=== PATIENT | female | born 1985 | race Caucasian/White ===

== ENCOUNTER 2017-07-03 13:43 | Inpatient (IN) | payer MEDICAID, MEDICARE ==
[2017-07-03] MEDS ORDERED: ACETAMINOPHEN TAB 650MG DOSE (2X325MG) PO ×2 (18:00)
[2017-07-03] MEDS ORDERED: MAALOX 30 ML SUSP *UDC PO ×2 (18:00)
[2017-07-03] MEDS ORDERED: MOM 30ML SUSPENSION UDC PO ×2 (18:00)
[2017-07-03] MEDS: TOPIRAMATE (TopAMAX) 25 MG TAB PO ×2 (20:28)
[2017-07-03] MEDS: zolPIDEM TARTRATE 10MG TAB PO ×2 (20:29)
[2017-07-03] MEDS: OLANZapine 10 MG TAB PO ×2 (20:29)
[2017-07-04] MEDS: MULTIVITAMINS/MINERALS THERAP 1 TAB PO ×2 (08:02)
[2017-07-04] MEDS: buPROPion **XL** TABLET 150MG (WELLBUTRIN XL) PO ×2 (08:02)
[2017-07-04] MEDS: OLANZapine 10 MG TAB PO ×4 (08:02→20:12)
[2017-07-04 13:18] LABS: HEMATOCRIT 40.7 % (36.0-47.0); HEMOGLOBIN 13.6 g/dl (12.0-16.0); MEAN CORPUSCULAR HEMOGLOBIN 31.2 pg (27.0-33.0); MEAN CORPUSCULAR HGB CONC 33.4 g/dl (32.0-36.5); MEAN CORPUSCULAR VOLUME 93.3 fl (80.0-96.0); PLATELET COUNT, AUTOMATED 447 10^3/uL (150-450); RED BLOOD COUNT 4.36 10^6/uL (4.00-5.40); RED CELL DISTRIBUTION WIDTH 13.6 % (11.5-14.5); WHITE BLOOD COUNT 10.6 10^3/uL (4.0-10.0)
[2017-07-04 14:14] LABS: ALBUMIN 3.9 GM/DL (3.2-5.2); ALBUMIN/GLOBULIN RATIO 1.15 (1.00-1.93); ALKALINE PHOSPHATASE 82 U/L (45-117); ALT/SGPT 21 U/L (12-78); ANION GAP 7 MEQ/L (8-16); AST/SGOT 8 U/L (7-37); BILIRUBIN,TOTAL 0.3 MG/DL (0.2-1.0); BLOOD UREA NITROGEN 10 MG/DL (7-18); CALCIUM LEVEL 8.8 MG/DL (8.5-10.1); CARBON DIOXIDE LEVEL 26 MEQ/L (21-32); CHLORIDE LEVEL 107 MEQ/L (98-107); CREATININE FOR GFR 0.77 MG/DL (0.55-1.30); GLOMERULAR FILTRATION RATE > 60.0 (>60); GLUCOSE, FASTING 94 MG/DL (70-100); SODIUM LEVEL 140 MEQ/L (136-145); TOTAL PROTEIN 7.3 GM/DL (6.4-8.2)
[2017-07-04] MEDS: zolPIDEM TARTRATE 10MG TAB PO ×2 (20:11)
[2017-07-04] MEDS: TOPIRAMATE (TopAMAX) 25 MG TAB PO ×2 (20:11)
[2017-07-05] MEDS: OLANZapine 10 MG TAB PO ×2 (08:17)
[2017-07-05] MEDS: buPROPion **XL** TABLET 150MG (WELLBUTRIN XL) PO ×2 (08:17)
[2017-07-05] MEDS: MULTIVITAMINS/MINERALS THERAP 1 TAB PO ×2 (08:17)
[2017-07-05] MEDS: hydrOXYzine 50 MG TAB PO ×2 (13:30)
== END 2017-07-05 14:49 | disposition home or self-care (01) | DRG 750 ==
LOC: M ED 13:43 → M ED INP 16:02 → M PSY 17:35
DX: F20.0 Paranoid schizophrenia (principal); F41.9 Anxiety disorder, unspecified; G47.00 Insomnia, unspecified; F17.200 Nicotine dependence, unspecified, uncomplicated; Z79.899 Other long term (current) drug therapy

== ENCOUNTER → 2018-07-22 | Outpatient (REF) | payer MEDICARE, MEDICAID, OTHER ==
[~2018-07-22] MED LIST: ABIL15TA; AMBI10TA PO; AMBI5TAB PO; BUPR10TASR PO; BUPR150T3 PO; CELE40TA; DEPLIN; FLUP5TA PO; HYDR50TA70 PO; HYDRO50TAB PO; KLON0.5T; KLON1TAB; OLAN10TA2 PO; OLAN20TA14 PO; Prolixin; TOPA1TAB PO; TOPI50TA9 PO; TRAZ100T; VITMTA PO; ZOLO50TA; ZOLP10TA2 PO; ZYPR1TAB3
[2018-07-22 16:43] LABS: APPEARANCE, URINE CLEAR (CLEAR); BACTERIA, URINE AUTO NEGATIVE (NEGATIVE); BILIRUBIN, URINE AUTO NEGATIVE (NEGATIVE); BLOOD, URINE BLOOD NEGATIVE (NEGATIVE); COLOR, URINE YELLOW (YELLOW); GLUCOSE, URINE (UA) AUTO NEGATIVE (NEGATIVE); KETONE, URINE AUTO NEGATIVE (NEGATIVE); LEUKOCYTE ESTERASE, URINE AUTO 2+ (NEGATIVE); MUCUS, URINE SMALL (NEGATIVE); NITRITE, URINE AUTO NEGATIVE (NEGATIVE); PROTEIN, URINE AUTO NEGATIVE (NEGATIVE); RBC, URINE AUTO 2 /HPF (0-3); SPECIFIC GRAVITY URINE AUTO 1.012 (1.002-1.035); SQUAMOUS EPITHELIAL CELL UR AU 1 /HPF (0-6); UROBILINOGEN, URINE AUTO 0.2 mg/dL (0.0-2.0); WBC, URINE AUTO 5 /HPF (0-3)
[2018-07-22 16:45] LABS: BASO # 0.1 10^3/uL (0.0-0.2); BASO % 0.4 % (0.0-1.0); EOS # 0.2 10^3/uL (0.0-0.50); EOS % 1.3 % (0.0-3.0); HEMATOCRIT 43.9 % (36.0-47.0); HEMOGLOBIN 14.5 g/dl (12.0-15.5); LYMPH # 3.5 10^3/uL (1.5-4.5); LYMPH % 30.1 % (24.0-44.0); MEAN CORPUSCULAR HEMOGLOBIN 28.6 pg (27.0-33.0); MEAN CORPUSCULAR VOLUME 86.6 fl (80.0-96.0); MONO # 0.7 10^3/uL (0.0-0.8); MONO % 6.1 % (0.0-5.0); NEUTROPHILS # 7.1 10^3/uL (1.8-7.7); NEUTROPHILS % 61.7 % (36.0-66.0); PLATELET COUNT, AUTOMATED 465 10^3/uL (150-450); RED BLOOD COUNT 5.07 10^6/uL (4.00-5.40); WHITE BLOOD COUNT 11.6 10^3/uL (4.0-10.0)
[2018-07-22 17:06] LABS: HEMOGLOBIN A1c 8.3 %
[2018-07-22 17:08] LABS: ALT/SGPT 27 U/L (12-78); BILIRUBIN,TOTAL 0.4 MG/DL (0.2-1.0); BLOOD UREA NITROGEN 8 MG/DL (7-18); CALCIUM LEVEL 8.6 MG/DL (8.5-10.1); CARBON DIOXIDE LEVEL 21 MEQ/L (21-32); CHLORIDE LEVEL 109 MEQ/L (98-107); CHOLESTEROL LEVEL 190 MG/DL (<200); CHOLESTEROL RISK RATIO 6.333 (<5); CREATININE FOR GFR 0.74 MG/DL (0.55-1.30); FREE T4 1.09 NG/DL (0.76-1.46); GLOMERULAR FILTRATION RATE > 60.0 (>60); GLUCOSE, FASTING 101 MG/DL (70-100); HDL CHOLESTEROL 30 MG/DL (>40); LDL CHOLESTEROL 120 MG/DL (<100); NON-HDL-C 160 MG/DL; POTASSIUM SERUM 4.3 MEQ/L (3.5-5.1); SODIUM LEVEL 139 MEQ/L (136-145); TOTAL PROTEIN 7.8 GM/DL (6.4-8.2); TRIGLYCERIDES LEVEL 202 MG/DL (<150)
[2018-07-22 17:09] LABS: CREATININE, URINE 65.1 MG/DL; MALB URINE SIEMENS 5.8 MG/L; MAU/CREAT RATIO 8.9 MCG/MG (0.0-30.0)
[2018-07-26 00:09] LABS: Lyme Disease IgG Ab 18 kDa Ban Absent (.); Lyme Disease IgG Ab 23 kDa Ban Absent (.); Lyme Disease IgG Ab 28 kDa Ban Absent (.); Lyme Disease IgG Ab 30 kDa Ban Absent (.); Lyme Disease IgG Ab 39 kDa Ban Absent (.); Lyme Disease IgG Ab 41 kDa Ban Present (.); Lyme Disease IgG Ab 45 kDa Ban Absent (.); Lyme Disease IgG Ab 58 kDa Ban Absent (.); Lyme Disease IgG Ab 66 kDa Ban Absent (.); Lyme Disease IgG Ab 93 kDa Ban Absent (.); Lyme Disease IgG West Blot Int Negative (.); Lyme Disease IgG/IgM Antibodie 1.04 ISR (0.00-0.90); Lyme Disease IgM Ab 23 kDa Ban Absent (.); Lyme Disease IgM Ab 39 kDa Ban Absent (.); Lyme Disease IgM Ab 41 kDa Ban Present (.); Lyme Disease IgM Ab Quantitati 1.88 index (0.00-0.79); Lyme Disease IgM West Blot Int Negative (.)
== END ==
LOC: M LAB REF 16:14
PROVIDERS: ATTEND Family Medicine
DX: M19.90 Unspecified osteoarthritis, unspecified site (principal); E11.9 Type 2 diabetes mellitus without complications; Z00.01 Encounter for general adult medical examination with abnormal findings

== ENCOUNTER → 2019-01-13 | Outpatient (REF) | payer MEDICARE, OTHER ==
[~2019-01-13] MED LIST changes: +HYDR1TAB33 PO; -HYDRO50TAB PO
[2019-01-13 18:06] LABS: ALBUMIN 3.6 GM/DL (3.2-5.2); ALT/SGPT 41 U/L (12-78); BILIRUBIN,TOTAL 0.4 MG/DL (0.2-1.0); BLOOD UREA NITROGEN 6 MG/DL (7-18); CALCIUM LEVEL 9.3 MG/DL (8.5-10.1); CARBON DIOXIDE LEVEL 25 MEQ/L (21-32); CHLORIDE LEVEL 107 MEQ/L (98-107); CHOLESTEROL LEVEL 146 MG/DL (<200); CHOLESTEROL RISK RATIO 6.636 (<5); CREATININE FOR GFR 0.92 MG/DL (0.55-1.30); GLOMERULAR FILTRATION RATE > 60.0 (>60); GLUCOSE, FASTING 125 MG/DL (70-100); HDL CHOLESTEROL 22 MG/DL (>40); LDL CHOLESTEROL 57 MG/DL (<100); NON-HDL-C 124 MG/DL; SODIUM LEVEL 141 MEQ/L (136-145); TOTAL PROTEIN 6.9 GM/DL (6.4-8.2); TRIGLYCERIDES LEVEL 333 MG/DL (<150)
[2019-01-13 19:23] LABS: HEMOGLOBIN A1c 5.9 %
== END ==
LOC: M LAB REF 17:01
PROVIDERS: ATTEND Family Medicine
DX: E11.9 Type 2 diabetes mellitus without complications (principal)

== ENCOUNTER → 2019-06-17 | Outpatient (REF) | payer MEDICARE, OTHER ==
[2019-06-17 14:07] LABS: ALBUMIN 3.9 GM/DL (3.2-5.2); ALT/SGPT 24 U/L (12-78); BILIRUBIN,TOTAL 0.2 MG/DL (0.2-1.0); BLOOD UREA NITROGEN 6 MG/DL (7-18); CALCIUM LEVEL 8.8 MG/DL (8.5-10.1); CARBON DIOXIDE LEVEL 28 MEQ/L (21-32); CHLORIDE LEVEL 107 MEQ/L (98-107); CHOLESTEROL LEVEL 155 MG/DL (<200); CHOLESTEROL RISK RATIO 5.166 (<5); CREATININE FOR GFR 0.69 MG/DL (0.55-1.30); GLOMERULAR FILTRATION RATE > 60.0 (>60); GLUCOSE, FASTING 95 MG/DL (70-100); HDL CHOLESTEROL 30 MG/DL (>40); LDL CHOLESTEROL 104 MG/DL (<100); NON-HDL-C 125 MG/DL; POTASSIUM SERUM 4.2 MEQ/L (3.5-5.1); SODIUM LEVEL 139 MEQ/L (136-145); TOTAL PROTEIN 6.8 GM/DL (6.4-8.2); TRIGLYCERIDES LEVEL 106 MG/DL (<150)
[2019-06-17 15:02] LABS: HEMOGLOBIN A1c 5.1 %
== END ==
LOC: M LAB REF 13:09
PROVIDERS: ATTEND Family Medicine
DX: E11.9 Type 2 diabetes mellitus without complications (principal)

== ENCOUNTER 2019-09-21 23:34 | Emergency (ER) | payer MEDICARE, OTHER ==
[~2019-09-21] VITALS: Ht 170.2 cm; Wt 77.3 kg
[2019-09-22] MEDS ORDERED: ceFAZolin SOD 2 GM in IV 1 EA IV ONE ×2
[2019-09-22] MEDS ORDERED: TETANUS/DIPHTHERIA TOX ADSORB ADULT 0.5ML SYR/VIAL (90714) IM ONE (00:15)
--- NOTE | 2019-09-22 02:02 | REPVR ---
PROCEDURE INFORMATION: Exam: US Duplex Left Lower Extremity Veins, Limited Exam date and time: 09/22/2019 1:54 AM Age: 34 years old Clinical indication: Pain; Edema, localized; Lower extremity, left; Leg, lower; Additional info: Swelling TECHNIQUE: Imaging protocol: Real-time Duplex ultrasound of the Left Lower Extremity with 2-D escobar scale, color Doppler flow and spectral waveform analysis with image documentation. Limited exam focused on the left lower extremity veins. COMPARISON: No relevant prior studies available. FINDINGS: Left deep veins: Unremarkable. The common femoral, femoral and popliteal veins are patent without thrombus. Normal compressibility, augmentation response and Doppler waveforms. Left superficial veins: Unremarkable. Saphenofemoral junction is patent without thrombus. Soft tissues: Diffuse subcutaneous edema. Lymph nodes: Multiple mildly prominent left inguinal lymph nodes, likely reactive. IMPRESSION: No sonographic evidence of deep venous thrombosis. Electronically signed by: Jose Mcgarry On 09/22/2019 02:02:03 AM
--- NOTE | 2019-09-22 02:20 | REP ---
Clinical: Trauma. Technique: AP and lateral views of the left tibia / fibula. Findings: No acute fracture or dislocation. Skeletal structures, joint spaces, and surrounding soft tissues appear normal. No subcutaneous emphysema or foreign body. Impression: No acute fracture or dislocation. Electronically Signed by Mihai Andersen MD 09/22/2019 02:11 A
--- NOTE | 2019-09-22 02:22 | REP ---
Clinical: Left ankle trauma . Technique: AP, lateral, bilateral oblique views left ankle . Findings: Moderate diffuse soft tissue swelling noted. Very subtle irregularity at the tip of the medial malleolus is likely chronic and less likely represents a small fracture. Nonetheless, clinical and physical correlation is recommended to exclude the possibility of an acute injury. No definite acute fracture is otherwise noted and there is no evidence for dislocation. Ankle mortise appears stable. No subcutaneous emphysema or radiodense foreign body. Lateral view demonstrates small calcaneal heal spur. Impression: Diffuse swelling. Very subtle nonspecific irregularity at the tip of the medial malleolus less likely representing acute injury, but correlation is required. Electronically Signed by Mihai Andersen MD 09/22/2019 02:13 A
[2019-09-22] MEDS ORDERED: KEFL500C17 PO (02:39)
[2019-09-22 03:11] VITALS: BP 129/70
== END 2019-09-22 03:19 | disposition home or self-care (01) ==
LOC: M ED 23:34 → EDBD 23:34 → M ED 09-22 03:19
DX: L03.116 Cellulitis of left lower limb (principal); S82.55XA Nondisplaced fracture of medial malleolus of left tibia, initial encounter for closed fracture; W01.0XXA Fall on same level from slipping, tripping and stumbling without subsequent striking against object, initial encounter; Y92.009 Unspecified place in unspecified non-institutional (private) residence as the place of occurrence of the external cause; Y93.9 Activity, unspecified; Y99.9 Unspecified external cause status; F20.9 Schizophrenia, unspecified
CPT/HCPCS: 73590; 73610; 87040; 90471; 90714; 93971; 96365; 99284; J0690

== ENCOUNTER → 2020-04-23 | Outpatient (REF) | payer MEDICARE ==
[~2020-04-23] MED LIST changes: +KEFL500C17 PO
[2020-04-23 17:41] LABS: HEMOGLOBIN A1c 5.2 %
[2020-04-23 18:00] LABS: ALT/SGPT 15 U/L (12-78); BILIRUBIN,TOTAL 0.4 MG/DL (0.2-1.0); BLOOD UREA NITROGEN 11 MG/DL (7-18); CARBON DIOXIDE LEVEL 26 MEQ/L (21-32); CHLORIDE LEVEL 109 MEQ/L (98-107); CHOLESTEROL LEVEL 162 MG/DL (<200); CHOLESTEROL RISK RATIO 4.628 (<5); CREATININE FOR GFR 0.68 MG/DL (0.55-1.30); GLOMERULAR FILTRATION RATE > 60.0 (>60); GLUCOSE, FASTING 96 MG/DL (70-100); HDL CHOLESTEROL 35 MG/DL (>40); LDL CHOLESTEROL 102 MG/DL (<100); NON-HDL-C 127 MG/DL; POTASSIUM SERUM 4.7 MEQ/L (3.5-5.1); SODIUM LEVEL 141 MEQ/L (136-145); TRIGLYCERIDES LEVEL 127 MG/DL (<150)
== END ==
LOC: M LAB REF 16:33
PROVIDERS: ATTEND Physician Assistant
DX: E11.9 Type 2 diabetes mellitus without complications (principal)

== ENCOUNTER 2020-10-20 18:30 | Inpatient (IN) | payer MEDICARE ==
[~2020-10-20] VITALS: Ht 157.5 cm; Wt 69.0 kg
[~2020-10-20 18:30] MED LIST changes: +BUPR150T12 PO; -BUPR150T3 PO; -FLUP5TA PO; +FLUP5TAB13 PO
[2020-10-20 23:24] LABS: HEMATOCRIT 39.4 % (36.0-47.0); HEMOGLOBIN 13.1 g/dl (12.0-15.5); MEAN CORPUSCULAR HEMOGLOBIN 32.4 pg (27.0-33.0); MEAN CORPUSCULAR HGB CONC 33.2 g/dl (32.0-36.5); MEAN CORPUSCULAR VOLUME 97.5 fl (80.0-96.0); PLATELET COUNT, AUTOMATED 408 10^3/uL (150-450); RED BLOOD COUNT 4.04 10^6/uL (4.00-5.40); WHITE BLOOD COUNT 13.4 10^3/uL (4.0-10.0)
[2020-10-20 23:49] LABS: AMPHETAMINES LEVEL URINE NEGATIVE (NEGATIVE); BARBITURATES URINE NEGATIVE (NEGATIVE); BENZODIAZEPINES URINE NEGATIVE (NEGATIVE); CANNABINOIDS URINE NEGATIVE (NEGATIVE); COCAINE METABOLITE URINE NEGATIVE (NEGATIVE); HCG, SERUM QUALITATIVE NEGATIVE (NEGATIVE); METHADONE URINE NEGATIVE (NEGATIVE); OPIATES URINE NEGATIVE (NEGATIVE); PHENCYCLIDINE URINE NEGATIVE (NEGATIVE)
[2020-10-20 23:57] LABS: ACETAMINOPHEN LEVEL 13.4 UG/ML (10.0-30.0); ALBUMIN 3.7 GM/DL (3.2-5.2); ALT/SGPT 17 U/L (12-78); BILIRUBIN,DIRECT < 0.1 MG/DL (0.0-0.2); BILIRUBIN,TOTAL 0.2 MG/DL (0.2-1.0); BLOOD UREA NITROGEN 9 MG/DL (7-18); CALCIUM LEVEL 8.6 MG/DL (8.5-10.1); CARBON DIOXIDE LEVEL 30 MEQ/L (21-32); CHLORIDE LEVEL 113 MEQ/L (98-107); CREATININE FOR GFR 0.64 MG/DL (0.55-1.30); ETHYL ALCOHOL (ETHANOL) < 0.003 % (0.000-0.010); GLOMERULAR FILTRATION RATE > 60.0 (>60); GLUCOSE, FASTING 96 MG/DL (70-100); SALICYLATE LEVEL 24.3 MG/DL (5.0-30.0); SODIUM LEVEL 146 MEQ/L (136-145); THYROID STIMULATING HORMONE 0.959 uIU/ML (0.358-3.740); TOTAL PROTEIN 6.4 GM/DL (6.4-8.2)
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
[2020-10-21] MEDS ORDERED: MOM 30ML SUSPENSION UDC PO PRN (01:55)
[2020-10-21] MEDS ORDERED: OLANZapine ORAL DISINTEGRATING TAB 5MG PO PRN (01:55)
[2020-10-21] MEDS ORDERED: ACETAMINOPHEN TAB 650MG DOSE (2X325MG) PO PRN (01:55)
[2020-10-21] MEDS ORDERED: MAALOX 30 ML SUSP *UDC PO PRN (01:55)
[2020-10-21 02:30] VITALS: BP 128/71
[2020-10-21] MEDS: NICOTINE 21MG/24HR 1 EA TRANSDERMAL TD SCH (09:31)
[2020-10-21] MEDS: risperiDONE 2 MG TAB PO SCH ×2 (09:31→20:22)
[2020-10-21 16:06] VITALS: BP 119/63
[2020-10-21] MEDS: traZODone 50 MG TAB PO PRN (20:22)
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
[2020-10-22 06:15] VITALS: BP 118/58
[2020-10-22] MEDS: risperiDONE 2 MG TAB PO SCH ×2 (08:16→20:53)
[2020-10-22] MEDS: NICOTINE 21MG/24HR 1 EA TRANSDERMAL TD SCH (08:16)
[2020-10-22] MEDS ORDERED: INFLUENZA QUADRIVALENT PF VACCINE 0.5ML SYRINGE IM ONE (09:00)
--- NOTE | 2020-10-22 11:13 | MHIPNPDOC ---
[facility] Progress Note Progress Note DATE OF SERVICE: 10/22/20 Patient has cooperated with the medication and reports feeling slightly better. She stated that the hallucination is not as bad and she didn't hear it. When she was sleeping and feeling rested. She is alert, more responsive and does not appear to be as distracted and denies any command hallucinations. Admission labs of CBC and CMP is unremarkable. She is eating and has no physical complaints. She is concerned about the housing and reports that she is being evicted by the end of this month. HISTORY: . VITAL SIGNS: See below. NEW TEST RESULTS: . CURRENT MEDICATIONS: See below. MENTAL STATUS EXAMINATION: Patient is a 35-year old female, who is , cooperative and in no acute distress. Speech: Is relevant, but not productive. Language skills are fair. Thought processes including: , Coherent. Thought content: Denies any paranoia fear or suicidal thoughts. Abstract reasoning, and computation: , Poor. Description of associations: Relevant. Description of abnormal or psychotic thoughts: Continued to hear voices at times but not command hallucination. Judgment: , Poor. Insight: very poor. Orientation: , Well oriented. Recent and remote memory: [, Poor]. Attention span and concentration: [, Poor]. Language: . Fund of knowledge: Below average. Mood: [, Moderately anxious]. Affect: More appropriate and with a good range . DIAGNOSES: 1. . Schizophrenia, paranoid 2. . 3. . ASSESSMENT:[, Slightly more appropriate and responsive] MANAGEMENT PLAN: [. Continue with the risperidone and supportive therapy]. TIME SPENT: [20] minutes. Vital Signs Vital Signs Date Time Temp Pulse Resp B/P (MAP) Pulse Ox O2 Delivery O2 Flow Rate FiO2 10/22/20 06:15 98.2 100 16 118/58 (78) 100 Room Air Current Medications Current Medications Medications (Trade) Dose Ordered Sig/Justin Route PRN Reason Start Time Stop Time Status Last Admin Dose Admin Acetaminophen (Tylenol Tab) 650 mg Q6HP PRN PO HEADACHE or DISCOMFORT 10/21/20 01:55 Al Hydrox/Mg Hydrox/Simethicone (Mylanta) 30 ml Q4HP PRN PO HEARTBURN/INDIGESTION 10/21/20 01:55 Home Med (Med Rec Complete!) ASDIRECTED XX 10/21/20 02:00 10/21/20 02:01 DC Magnesium Hydroxide (Milk Of Magnesia) 30 ml DAILYPRN PRN PO CONSTIPATION 10/21/20 01:55 Nicotine (Nicoderm Cq 21mg) 1 patch DAILY TD 10/21/20 09:00 10/22/20 08:16 Olanzapine (ZyPREXA ZYDIS) 5 mg Q4HP PRN PO AGITATION/ANXIETY 10/21/20 01:55 10/21/20 16:11 Risperidone (RisperDAL) 2 mg BID PO 10/21/20 09:00 10/22/20 08:16 Trazodone HCl (Desyrel) 50 mg QHSP PRN PO INSOMNIA 10/21/20 01:55 10/21/20 20:22 Allergies Coded Allergies: No Known Drug Allergies (Verified Allergy, Unknown, 09/21/19) ANAMARIA CHAUHAN M.D. October 22, 2020 11:13
[2020-10-22 18:25] VITALS: BP 126/62
[2020-10-23 06:39] VITALS: BP 118/61
[2020-10-23] MEDS: risperiDONE 2 MG TAB PO SCH ×2 (09:36→21:23)
[2020-10-23] MEDS: NICOTINE 21MG/24HR 1 EA TRANSDERMAL TD SCH (09:36)
[2020-10-23 16:50] VITALS: BP 148/77
[2020-10-24] MEDS: traZODone 50 MG TAB PO PRN ×2 (02:03→21:07)
[2020-10-24 06:43] VITALS: BP 108/57
[2020-10-24] MEDS: NICOTINE 21MG/24HR 1 EA TRANSDERMAL TD SCH (08:56)
[2020-10-24] MEDS: risperiDONE 2 MG TAB PO SCH ×2 (08:56→21:07)
--- NOTE | 2020-10-24 12:30 | MHIPN ---
[facility] PROGRESS NOTE DATE: 10/23/2020 The patient is quite guarded as to whether she is hearing voices or not. When I asked her what she meant when she said upon admission, when they asked her about voices, when she said something about "the creed," and her answer was, "Oh, no, I'm not, I'm not." So, basically, she does not even finish her sentences. MENTAL STATUS EXAMINATION: This patient is alert, appears to be oriented to person and place. She is guarded. Eye contact is fair. Psychomotor activity is decreased. There is no formal thought disorder noted. Her mood is good. Affect is flat. She is not suicidal or homicidal, but she definitely appears to be delusional. Concentration is fair. Memory is grossly intact. Insight and judgment is poor. DIAGNOSIS: Schizophrenia. TREATMENT PLAN: The patient is guarded and minimizing her symptoms and I suspect she is still psychotic. We will continue to monitor the patient for continued resolution of her psychotic symptoms and titrate medication as indicated. MTDD
[2020-10-25 07:13] VITALS: BP 111/56
[2020-10-25] MEDS: risperiDONE 2 MG TAB PO SCH ×2 (09:27→20:58)
[2020-10-25] MEDS: NICOTINE 21MG/24HR 1 EA TRANSDERMAL TD SCH (09:28)
--- NOTE | 2020-10-25 12:01 | MHIPNPDOC ---
[facility] Progress Note Progress Note DATE OF SERVICE: 10/25/20 The patient has cooperated with the medications, but is not showing much improvement. She appears highly anxious and her speech is very fragmented and at times not relevant to the question. She is still hearing voices but not commanding and denies any suicidal thoughts. She is very preoccupied with her housing situation, but has no realistic plan. Her behavior is in control. He is eating and sleeping okay. The remainder scattered disorganized HISTORY: . VITAL SIGNS: See below. NEW TEST RESULTS: . CURRENT MEDICATIONS: See below. MENTAL STATUS EXAMINATION: Patient is a 35-year old female, who is , very anxious. Speech: Is , not productive, not spontaneous. Language skills are poor. Thought processes including: Scattered. Thought content: , Unable to give any coherent response. Abstract reasoning, and computation: For. Description of associations: Low-dose. Description of abnormal or psychotic thoughts: Appears paranoid, disorganized. Judgment: , Poor. Insight: very poor. Orientation: , Oriented to time and place. Recent and remote memory: , Poor. Attention span and concentration: , Poor]. Language: . Fund of knowledge: poor]. Mood: [, Anxious, fearful]. Affect: [Blunted, inappropriate]. DIAGNOSES: 1. ., Schizophrenia, paranoid 2. . 3. . ASSESSMENT:[No significant improvement] MANAGEMENT PLAN: Continue with the risperidone . TIME SPENT: [15] minutes. Vital Signs Vital Signs Date Time Temp Pulse Resp B/P (MAP) Pulse Ox O2 Delivery O2 Flow Rate FiO2 10/25/20 07:13 98.2 78 20 111/56 (74) 97 Room Air Current Medications Current Medications Medications (Trade) Dose Ordered Sig/Justin Route PRN Reason Start Time Stop Time Status Last Admin Dose Admin Acetaminophen (Tylenol Tab) 650 mg Q6HP PRN PO HEADACHE or DISCOMFORT 10/21/20 01:55 Al Hydrox/Mg Hydrox/Simethicone (Mylanta) 30 ml Q4HP PRN PO HEARTBURN/INDIGESTION 10/21/20 01:55 Home Med (Med Rec Complete!) ASDIRECTED XX 10/21/20 02:00 10/21/20 02:01 DC Magnesium Hydroxide (Milk Of Magnesia) 30 ml DAILYPRN PRN PO CONSTIPATION 10/21/20 01:55 Nicotine (Nicoderm Cq 21mg) 1 patch DAILY TD 10/21/20 09:00 10/25/20 09:28 Olanzapine (ZyPREXA ZYDIS) 5 mg Q4HP PRN PO AGITATION/ANXIETY 10/21/20 01:55 10/21/20 16:11 Risperidone (RisperDAL) 2 mg BID PO 10/21/20 09:00 10/25/20 09:27 Trazodone HCl (Desyrel) 50 mg QHSP PRN PO INSOMNIA 10/21/20 01:55 10/24/20 21:07 Allergies Coded Allergies: No Known Drug Allergies (Verified Allergy, Unknown, 09/21/19) ANAMARIA CHAUHAN M.D. October 25, 2020 12:01
--- NOTE | 2020-10-25 14:39 | MHIPN ---
[facility] PROGRESS NOTE DATE OF SERVICE: 10/24/2020 HISTORY OF PRESENT ILLNESS: The patient today states "I am all right." She has no complaints and says she slept well. MENTAL STATUS EXAM: This patient is alert and oriented times 3, pleasant and cooperative, verbally spontaneous. Eye contact is good. There is no formal thought disorder noted. Mood is appropriate. Affect is appropriate to mood. She is not psychotic, suicidal or homicidal. Concentration is fair. Memory intact. Insight and judgment is fair. DIAGNOSIS: Schizophrenia. TREATMENT PLAN: The patient is guarded and minimizing her symptoms and I suspect she is still psychotic. We will continue to monitor the patient for continued resolution of her psychotic symptoms and titrate medication as indicated. MTDD
[2020-10-25 18:51] VITALS: BP 141/72
[2020-10-25] MEDS: traZODone 50 MG TAB PO PRN (20:58)
[2020-10-26 06:37] VITALS: BP 118/62
[2020-10-26] MEDS: risperiDONE 2 MG TAB PO SCH ×2 (08:50→21:34)
[2020-10-26] MEDS: NICOTINE 21MG/24HR 1 EA TRANSDERMAL TD SCH (08:51)
--- NOTE | 2020-10-26 12:07 | MHIPNPDOC ---
[facility] Progress Note Progress Note DATE OF SERVICE: 10/26/20 The patient remains a very scattered and in poor contact. Even though she is fully compliant with the meds. She is still laughing and smiling inappropriately. Her thoughts are disconnected and speech is fragmented and not able to focus and not able to discuss her discharge plan. In any coherent manner. She is still very disorganized and appears to be actively hallucinating at times and showing very little improvement HISTORY: . VITAL SIGNS: See below. NEW TEST RESULTS: . CURRENT MEDICATIONS: See below. MENTAL STATUS EXAMINATION: Patient is a 35-year old female, who is no acute distress, but in poor contact. Speech: Is loose scattered. Language skills are , poor. Thought processes including: Scattered and loose. Thought content: , Unable to organize and express. Abstract reasoning, and computation: poor. Description of associations: Loose. Description of abnormal or psychotic thoughts: Appears to be hallucinating. Judgment: , Poor. Insight: poor. Orientation: , Oriented. Recent and remote memory: poor. Attention span and concentration: poor. Language: . Fund of knowledge: ] Below average. Mood: [, Anxious]. Affect: [Perplexed and inappropriate. DIAGNOSES: 1. . Schizophrenia, paranoid 2. . 3. . ASSESSMENT:[ no improvement remains disorganized] MANAGEMENT PLAN: Increase risperidone to 2 mg in the morning and 4 mg at bedtime. Add Cogentin . TIME SPENT: 20 minutes. Vital Signs Vital Signs Date Time Temp Pulse Resp B/P (MAP) Pulse Ox O2 Delivery O2 Flow Rate FiO2 10/26/20 06:37 98.9 83 17 118/62 (80) 100 Room Air Current Medications Current Medications Medications (Trade) Dose Ordered Sig/Justin Route PRN Reason Start Time Stop Time Status Last Admin Dose Admin Acetaminophen (Tylenol Tab) 650 mg Q6HP PRN PO HEADACHE or DISCOMFORT 10/21/20 01:55 Al Hydrox/Mg Hydrox/Simethicone (Mylanta) 30 ml Q4HP PRN PO HEARTBURN/INDIGESTION 10/21/20 01:55 Home Med (Med Rec Complete!) ASDIRECTED XX 10/21/20 02:00 10/21/20 02:01 DC Magnesium Hydroxide (Milk Of Magnesia) 30 ml DAILYPRN PRN PO CONSTIPATION 10/21/20 01:55 Nicotine (Nicoderm Cq 21mg) 1 patch DAILY TD 10/21/20 09:00 10/26/20 08:51 Olanzapine (ZyPREXA ZYDIS) 5 mg Q4HP PRN PO AGITATION/ANXIETY 10/21/20 01:55 10/21/20 16:11 Risperidone (RisperDAL) 2 mg BID PO 10/21/20 09:00 10/26/20 11:59 DC 10/26/20 08:50 Risperidone (RisperDAL) 2 mg DAILY PO 10/27/20 09:00 UNV Risperidone (RisperDAL) 4 mg QHS PO 10/26/20 21:00 UNV Trazodone HCl (Desyrel) 50 mg QHSP PRN PO INSOMNIA 10/21/20 01:55 10/25/20 20:58 Allergies Coded Allergies: No Known Drug Allergies (Verified Allergy, Unknown, 09/21/19) ANAMARIA CHAUHAN M.D. October 26, 2020 12:07
[2020-10-26] MEDS: BENZTROPINE 1 MG TAB PO SCH ×2 (12:40→21:34)
[2020-10-26 16:11] VITALS: BP 128/60
[2020-10-27 06:59] VITALS: BP 116/55
[2020-10-27] MEDS: NICOTINE 21MG/24HR 1 EA TRANSDERMAL TD SCH (09:28)
[2020-10-27] MEDS: BENZTROPINE 1 MG TAB PO SCH ×2 (09:28→21:11)
[2020-10-27] MEDS: risperiDONE 2 MG TAB PO SCH ×2 (09:28→21:11)
--- NOTE | 2020-10-27 11:29 | MHIPNPDOC ---
[facility] Progress Note Progress Note DATE OF SERVICE: 10/27/20 The patient cooperated with medicine and reports no side effect. She is pleasant, in no acute distress but remains very fragmented rambling and inappropriate at times and is a very poor historian. The enterprise resource planner reports that she is not giving any clear answers about her housing area and are given sure whether she is facing eviction or not. She remains loose, easily distracted and rambling and needs further stabilization. HISTORY: . VITAL SIGNS: See below. NEW TEST RESULTS: . CURRENT MEDICATIONS: See below. MENTAL STATUS EXAMINATION: Patient is a 35 -year old female, who is , pleasant, but disorganized. Speech: Is rambling, flight. Language skills are , poor. Thought processes including: , Very loose, fragmented. Thought content: Superficially denies any problem. Abstract reasoning, and computation: , Poor. Description of associations: Fragmented]. Description of abnormal or psychotic thoughts: [Appears hallucinating and disorganized]. Judgment: , Poor. Insight: [very poor]. Orientation: [, Oriented to place, ]. Recent and remote memory: [poor]. Attention span and concentration: [, Poor]. Language: . Fund of knowledge: [Below average]. Mood: [Superficial. Denies any serious depression]. Affect: [Inappropriate, labile]. DIAGNOSES: 1. . Schizophrenia, paranoid 2. . 3. . ASSESSMENT:[Remained disorganized] MANAGEMENT PLAN: needs stabilization with the medications . TIME SPENT: [15] minutes. Vital Signs Vital Signs Date Time Temp Pulse Resp B/P (MAP) Pulse Ox O2 Delivery O2 Flow Rate FiO2 10/27/20 06:59 97.6 98 20 116/55 (75) 97 Room Air Current Medications Current Medications Medications (Trade) Dose Ordered Sig/Justin Route PRN Reason Start Time Stop Time Status Last Admin Dose Admin Acetaminophen (Tylenol Tab) 650 mg Q6HP PRN PO HEADACHE or DISCOMFORT 10/21/20 01:55 Al Hydrox/Mg Hydrox/Simethicone (Mylanta) 30 ml Q4HP PRN PO HEARTBURN/INDIGESTION 10/21/20 01:55 Benztropine Mesylate (Cogentin) 1 mg BID PO 10/26/20 09:00 10/27/20 09:28 Home Med (Med Rec Complete!) ASDIRECTED XX 10/21/20 02:00 10/21/20 02:01 DC Magnesium Hydroxide (Milk Of Magnesia) 30 ml DAILYPRN PRN PO CONSTIPATION 10/21/20 01:55 Nicotine (Nicoderm Cq 21mg) 1 patch DAILY TD 10/21/20 09:00 10/27/20 09:28 Olanzapine (ZyPREXA ZYDIS) 5 mg Q4HP PRN PO AGITATION/ANXIETY 10/21/20 01:55 10/21/20 16:11 Risperidone (RisperDAL) 2 mg BID PO 10/21/20 09:00 10/26/20 11:59 DC 10/26/20 08:50 Risperidone (RisperDAL) 2 mg DAILY PO 10/27/20 09:00 10/27/20 09:28 Risperidone (RisperDAL) 4 mg QHS PO 10/26/20 21:00 10/26/20 21:34 Trazodone HCl (Desyrel) 50 mg QHSP PRN PO INSOMNIA 10/21/20 01:55 10/25/20 20:58 Allergies Coded Allergies: No Known Drug Allergies (Verified Allergy, Unknown, 09/21/19) ANAMARIA CHAUHAN M.D. October 27, 2020 11:28
[2020-10-27 16:17] VITALS: BP 136/63
[2020-10-28 06:27] VITALS: BP 103/56
[2020-10-28] MEDS: risperiDONE 2 MG TAB PO SCH ×2 (08:42→21:36)
[2020-10-28] MEDS: BENZTROPINE 1 MG TAB PO SCH ×2 (08:42→21:36)
[2020-10-28] MEDS: NICOTINE 21MG/24HR 1 EA TRANSDERMAL TD SCH (08:42)
--- NOTE | 2020-10-28 10:56 | MHIPNPDOC ---
[facility] Progress Note Progress Note DATE OF SERVICE: 10/28/20 The patient is complying with her medication of the increased risperidone. She is however showing no significant improvement. She is moderately anxious, laughi ng and smiling inappropriately and that her thoughts are very scattered and fragmented. When asked about the auditory hallucination she was experiencing she becomes very evasive and doesn't really want to discuss. She claims she can go back to her apartment and she is not being evicted, but not able to give any clear answers and smiling nervously. She remains disorganized and appears actively hallucinating but her behavior is in control with no bizarre or dangerous behaviors. HISTORY: . VITAL SIGNS: See below. NEW TEST RESULTS: . CURRENT MEDICATIONS: See below. MENTAL STATUS EXAMINATION: Patient is a 35-year old female, who is , very anxious, evasive and somewhat disorganized. Speech: Is , not spontaneous, not productive. Language skills are [, poor. Thought processes including: Scattered fragmented . Thought content: , Difficult to evaluate. Abstract reasoning, and computation: , Poor. Description of associations: Loose scattered. Description of abnormal or psychotic thoughts: Appears actively hallucinating. Judgment: , Poor. Insight: poor. Orientation: , Well oriented. Recent and remote memory: , Poor. Attention span and concentration: , Poor. Language: . Fund of knowledge: For. Mood: Superficial, very anxious. Affect: Inappropriate, labile. DIAGNOSES: 1. ., Schizophrenia, paranoid 2. . 3. . ASSESSMENT:Showing no improvement, but showing no dangerous behavior MANAGEMENT PLAN: . Continue with the risperidone. TIME SPENT: 20 minutes. Vital Signs Vital Signs Date Time Temp Pulse Resp B/P (MAP) Pulse Ox O2 Delivery O2 Flow Rate FiO2 10/28/20 06:27 98.6 77 20 103/56 (72) 99 10/27/20 16:17 Room Air Current Medications Current Medications Medications (Trade) Dose Ordered Sig/Justin Route PRN Reason Start Time Stop Time Status Last Admin Dose Admin Acetaminophen (Tylenol Tab) 650 mg Q6HP PRN PO HEADACHE or DISCOMFORT 10/21/20 01:55 Al Hydrox/Mg Hydrox/Simethicone (Mylanta) 30 ml Q4HP PRN PO HEARTBURN/INDIGESTION 10/21/20 01:55 Benztropine Mesylate (Cogentin) 1 mg BID PO 10/26/20 09:00 10/28/20 08:42 Home Med (Med Rec Complete!) ASDIRECTED XX 10/21/20 02:00 10/21/20 02:01 DC Magnesium Hydroxide (Milk Of Magnesia) 30 ml DAILYPRN PRN PO CONSTIPATION 10/21/20 01:55 Nicotine (Nicoderm Cq 21mg) 1 patch DAILY TD 10/21/20 09:00 10/28/20 08:42 Olanzapine (ZyPREXA ZYDIS) 5 mg Q4HP PRN PO AGITATION/ANXIETY 10/21/20 01:55 10/21/20 16:11 Risperidone (RisperDAL) 2 mg BID PO 10/21/20 09:00 10/26/20 11:59 DC 10/26/20 08:50 Risperidone (RisperDAL) 2 mg DAILY PO 10/27/20 09:00 10/28/20 08:42 Risperidone (RisperDAL) 4 mg QHS PO 10/26/20 21:00 10/27/20 21:11 Trazodone HCl (Desyrel) 50 mg QHSP PRN PO INSOMNIA 10/21/20 01:55 10/25/20 20:58 Allergies Coded Allergies: No Known Drug Allergies (Verified Allergy, Unknown, 09/21/19) ANAMARIA CHAUHAN M.D. October 28, 2020 10:56
[2020-10-28 16:16] VITALS: BP 135/65
[2020-10-29 07:04] VITALS: BP 134/66
[2020-10-29] MEDS: BENZTROPINE 1 MG TAB PO SCH ×2 (08:38→21:05)
[2020-10-29] MEDS: risperiDONE 2 MG TAB PO SCH ×2 (08:38→21:05)
[2020-10-29] MEDS: NICOTINE 21MG/24HR 1 EA TRANSDERMAL TD SCH (08:38)
--- NOTE | 2020-10-29 10:30 | MHHPEPDOC ---
General Date Of Admission: October 21, 2020 Legal Status: 9.39 Chief Complaint I'm being evicted from my apartment. I'm hearing voices " This initial H&P was done on Oct 21 2020, but somehow missing , so it was done again on October 29 History of Present Illness HISTORY OF THE PRESENT ILLNESS: Patient is a 35 -year-old , female, who [for apparently has a long history of schizophrenia, but no known of admission to [facility]. She came to emergency room and grossly disorganized and confused mental status and admitted on 939 status. When seen by this M.D. the patient appears very distracted, actively hallucinating and unable to give much coherent information. She does admit that she is being evicted from apartment by the end of this month and she is been staying in [place] for 3 years but not able to give any other coherent history. She is very scattered, fragmented in her response and other times she is smiling and laughing inappropriately and not able to complete sentence. "Admission labs including CBC and CMP is unremarka ble and Screen is negative. She does admit that she hasn't been taking any medicine for over a year and denies any suicidal thoughts.]. Psychiatric Review of Systems Depression (2 or more weeks): denies Liv (4 or more days of): denies Psychosis: auditory hallucination, disorganization Anxiety: denies Past Psychiatric History Previous Psychiatric Diagnosis: [Has been hospitalized in [place], but doesn't know the details]. Previous Psychiatric Admissions: . Been diagnosed with schizophrenia Suicide Attempts: [Denies any previous suicidal attempt]. Psychiatric Follow-up: [, Not in any active treatment for over a year]. Psychiatric medications: [Does not remember]. Past Medical History Medical Problems Denies any medical issues Head Injury: No Seizures: No Hospitalizations: No Surgeries: No Family Medical/Psychiatric HX Medical Problems Unable to give any information Addiction History denies Social History Childhood: [Born in [place], not able to give any other information]. Abuse/Trauma:[Denies]. Current Living Situation: Lives alone with a cat]. Education: [, Not able to answer]. Employment: [Apparently unemployed]. Social Support: [, No support system]. Legal: [Denies any legal issues]. Marital: [Apparently single]. Mental Status Examination General Appearance: unkempt, appears stated age Build: thin Demeanor: preoccupied, very figety Eye Contact: poor Activity: average Behavior: cooperative Speech: pressured, non-spontaneous, other (, fragmented, not able to complete sentence, poor historian) Mood: anxious, irritable Affect: inappropriate, labile, incongruent, disorganized Thought Process: tangential, loose Thought Content (Other): internal-stimuli, unable to elaborate Thought Content (Aggressive): other (unable to fully evaluate) Perception (Hallucinations): auditory (. Patient states that she hears voices about [place]) Cognition(Intelligence Est.): average Oriented: Awake, Alert Insight: poor Judgment: Poor Diagnoses Schizophrenia, paranoid A-FIB/CHADSVASC A-FIB History Current/History of A-Fib/PAF?: No Current PO Anticoag Therapy: No Age/Risk Factor Scoring CHADSVASC: CHADSVASC Response (Comments) Value Gender Risk Factor Female 1 Hx of CHF No 0 Hx of HTN No 0 Hx of Stroke/TIA/or VTE No 0 Hx of Diabetes No 0 Hx of Vascular Disease No 0 Total 1 Treatment Treatment ordered: NONE Assessment Grossly disorganized and very poor historian, but appears to have chronic schizophrenic condition and acutely decompensated state Initial Treatment Plan 1. Patient was admitted on a 9.39 status. 2. Complete history was obtained. 3. With patients permission, family will be contacted and database will be expanded. 4. Patients medication regimen will be reviewed and changed accordingly. 5. Patient will be provided with protected environment. 6. Patient will be treated with individual, group, and milieu therapies. 7. Patient will receive supportive psych-education. 8. Discharge planning will commence immediately. 9. Outpatient follow-up treatment will be strongly recommended. 10. The initial treatment plan will focus initially on: * Depression. * Risk for suicide. ESTIMATED LENGTH OF STAY: 5-7 DAYS. TIME SPENT COUNSELING AND COORDINATING INITIAL CARE: 40 minutes. Tobacco Cessation Screen If Patient is a Smoker Nonsmoker N/A-No Antipsychotics Vital Signs Vital Signs Date Time Temp Pulse Resp B/P (MAP) Pulse Ox O2 Delivery O2 Flow Rate FiO2 10/29/20 07:04 98.7 82 20 134/66 (88) 99 Room Air Medications No Active Prescriptions or Reported Meds Allergies Coded Allergies: No Known Drug Allergies (Verified Allergy, Unknown, 09/21/19) ANAMARIA CHAUHAN M.D. October 29, 2020 10:30
--- NOTE | 2020-10-29 10:38 | MHIPNPDOC ---
[facility] Progress Note Progress Note DATE OF SERVICE: 10/29/20 The patient is cooperating with the medicine and sentenced to be showing a slight improvement with less distracted. Mental status and not as bizarre or disorganized. She is still inappropriately smiling at times and very repetitive, asking for discharge. When the M.D. part that that she is not ready for discharge yet and needs earlier more stabilization. She readily agrees and walks away. She is not able to hold lengthy conversation and remains quite scattered, but not as bizarre and in better control and eating, sleeping okay. HISTORY: . VITAL SIGNS: See below. NEW TEST RESULTS: . CURRENT MEDICATIONS: See below. MENTAL STATUS EXAMINATION: Patient is a 35-year old female, who is in no acute distress. Speech: Is simplistic scattered. Language skills are for. Thought processes including: Loose and scattered at times. Thought content: , Not expressing any gross delusional thinking and denies suicidal thoughts. Abstract reasoning, and computation: Poor . Description of associations: Loose. Description of abnormal or psychotic thoughts: Appears and admits to hearing voices. Judgment: , Poor. Insight: very poor. Orientation: , Oriented. Recent and remote memory: , Poor. Attention span and concentration: poor. Language: . Fund of knowledge: poor. Mood: Brighter. Affect: Inappropriate smiles. DIAGNOSES: 1. . Schizophrenia, paranoid 2. . 3. . ASSESSMENT:[Only slight improvement] MANAGEMENT PLAN: [Needs further stabilization with medications]. TIME SPENT: [20] minutes. Vital Signs Vital Signs Date Time Temp Pulse Resp B/P (MAP) Pulse Ox O2 Delivery O2 Flow Rate FiO2 10/29/20 07:04 98.7 82 20 134/66 (88) 99 Room Air Current Medications Current Medications Medications (Trade) Dose Ordered Sig/Justin Route PRN Reason Start Time Stop Time Status Last Admin Dose Admin Acetaminophen (Tylenol Tab) 650 mg Q6HP PRN PO HEADACHE or DISCOMFORT 10/21/20 01:55 Al Hydrox/Mg Hydrox/Simethicone (Mylanta) 30 ml Q4HP PRN PO HEARTBURN/INDIGESTION 10/21/20 01:55 Benztropine Mesylate (Cogentin) 1 mg BID PO 10/26/20 09:00 10/29/20 08:38 Home Med (Med Rec Complete!) ASDIRECTED XX 10/21/20 02:00 10/21/20 02:01 DC Magnesium Hydroxide (Milk Of Magnesia) 30 ml DAILYPRN PRN PO CONSTIPATION 10/21/20 01:55 Nicotine (Nicoderm Cq 21mg) 1 patch DAILY TD 10/21/20 09:00 10/29/20 08:38 Olanzapine (ZyPREXA ZYDIS) 5 mg Q4HP PRN PO AGITATION/ANXIETY 10/21/20 01:55 10/21/20 16:11 Risperidone (RisperDAL) 2 mg BID PO 10/21/20 09:00 10/26/20 11:59 DC 10/26/20 08:50 Risperidone (RisperDAL) 2 mg DAILY PO 10/27/20 09:00 10/29/20 08:38 Risperidone (RisperDAL) 4 mg QHS PO 10/26/20 21:00 10/28/20 21:36 Trazodone HCl (Desyrel) 50 mg QHSP PRN PO INSOMNIA 10/21/20 01:55 10/25/20 20:58 Allergies Coded Allergies: No Known Drug Allergies (Verified Allergy, Unknown, 09/21/19) ANAMARIA CHAUHAN M.D. October 29, 2020 10:38
[2020-10-29 16:28] VITALS: BP 148/68
[2020-10-30 06:24] VITALS: BP 105/55
[2020-10-30] MEDS: BENZTROPINE 1 MG TAB PO SCH ×2 (08:11→20:43)
[2020-10-30] MEDS: risperiDONE 2 MG TAB PO SCH ×2 (08:11→20:43)
[2020-10-30] MEDS: NICOTINE 21MG/24HR 1 EA TRANSDERMAL TD SCH (08:11)
[2020-10-30 16:13] VITALS: BP 132/62
[2020-10-31 06:32] VITALS: BP 121/58
[2020-10-31] MEDS: risperiDONE 2 MG TAB PO SCH ×2 (08:57→21:32)
[2020-10-31] MEDS: BENZTROPINE 1 MG TAB PO SCH ×2 (08:57→21:32)
[2020-10-31] MEDS: NICOTINE 21MG/24HR 1 EA TRANSDERMAL TD SCH (08:58)
[2020-11-01 06:49] VITALS: BP 102/86
[2020-11-01] MEDS: BENZTROPINE 1 MG TAB PO SCH ×2 (08:52→20:24)
[2020-11-01] MEDS: NICOTINE 21MG/24HR 1 EA TRANSDERMAL TD SCH (08:52)
[2020-11-01] MEDS: risperiDONE 2 MG TAB PO SCH ×2 (08:52→20:24)
--- NOTE | 2020-11-01 09:27 | MHIPNPDOC ---
[facility] Progress Note Progress Note DATE OF SERVICE: 11/01/20 The patient has been cooperating with the medications, was able to come into the office and sat down and cooperated with the interview. She is still somewhat a nxious and pressured, but able to answer most of the questions appropriately.. She stated that she found out that she was not going to be evicted and be able to return to her apartment and her [facility] is at [facility] and is getting proper care. She is superficially denying any hallucinations and states that she is not feeling confused and is feeling better. She is not very spontaneous and not able to give more detailed information, but overall her she is much better organized and coherent. She is denying any side effect from a medicine and no signs or symptoms of EPSE. HISTORY: . VITAL SIGNS: See below. NEW TEST RESULTS: . CURRENT MEDICATIONS: See below. MENTAL STATUS EXAMINATION: Patient is a 35-year old female, who is in control and cooperative. Speech: Is more productive and coherent. Language skills are fair. Thought processes including: Relevant. Thought content: , Denies any paranoia. Denies any suicidal thoughts. Abstract reasoning, and computation: , Fair. Description of associations: Mall relevant. Description of abnormal or psychotic thoughts: Patient denies any. Judgment: , Fair. Insight: fair.. Orientation: , Oriented. Recent and remote memory: Fair. Attention span and concentration: Fair. Language: . Fund of knowledge: Below average. Mood: , Mildly anxious but reports no serious depression. Affect: Anxious but more appropriate. DIAGNOSES: 1. ., Schizophrenia, paranoid 2. . 3. . ASSESSMENT:Showing moderate improvement and not bizarre or agitated MANAGEMENT PLAN: I would have the social work to confirm her housing and possibly discharge by Sunday. TIME SPENT: 20] minutes. Vital Signs Vital Signs Date Time Temp Pulse Resp B/P (MAP) Pulse Ox O2 Delivery O2 Flow Rate FiO2 11/01/20 06:49 97.8 82 20 102/86 (91) 99 Room Air Current Medications Current Medications Medications (Trade) Dose Ordered Sig/Justin Route PRN Reason Start Time Stop Time Status Last Admin Dose Admin Acetaminophen (Tylenol Tab) 650 mg Q6HP PRN PO HEADACHE or DISCOMFORT 10/21/20 01:55 Al Hydrox/Mg Hydrox/Simethicone (Mylanta) 30 ml Q4HP PRN PO HEARTBURN/INDIGESTION 10/21/20 01:55 Benztropine Mesylate (Cogentin) 1 mg BID PO 10/26/20 09:00 11/01/20 08:52 Home Med (Med Rec Complete!) ASDIRECTED XX 10/21/20 02:00 10/21/20 02:01 DC Magnesium Hydroxide (Milk Of Magnesia) 30 ml DAILYPRN PRN PO CONSTIPATION 10/21/20 01:55 Nicotine (Nicoderm Cq 21mg) 1 patch DAILY TD 10/21/20 09:00 11/01/20 08:52 Olanzapine (ZyPREXA ZYDIS) 5 mg Q4HP PRN PO AGITATION/ANXIETY 10/21/20 01:55 10/21/20 16:11 Risperidone (RisperDAL) 2 mg BID PO 10/21/20 09:00 10/26/20 11:59 DC 10/26/20 08:50 Risperidone (RisperDAL) 2 mg DAILY PO 10/27/20 09:00 11/01/20 08:52 Risperidone (RisperDAL) 4 mg QHS PO 10/26/20 21:00 10/31/20 21:32 Trazodone HCl (Desyrel) 50 mg QHSP PRN PO INSOMNIA 10/21/20 01:55 10/25/20 20:58 Allergies Coded Allergies: No Known Drug Allergies (Verified Allergy, Unknown, 09/21/19) ANAMARIA CHAUHAN M.D. November 01, 2020 09:27
[2020-11-01 19:21] VITALS: BP 115/56
[2020-11-02] MEDS: traZODone 50 MG TAB PO PRN (00:34)
[2020-11-02 06:21] VITALS: BP 103/63
[2020-11-02] MEDS: BENZTROPINE 1 MG TAB PO SCH ×2 (08:08→20:07)
[2020-11-02] MEDS: NICOTINE 21MG/24HR 1 EA TRANSDERMAL TD SCH (08:08)
[2020-11-02] MEDS: risperiDONE 2 MG TAB PO SCH ×2 (08:08→20:08)
--- NOTE | 2020-11-02 10:54 | MHIPNPDOC ---
[facility] Progress Note Progress Note DATE OF SERVICE: 11/02/20 The patient is definitely showing some improvement. She is not as anxious and not appear to be actively hallucinating and thoughts are more organized and able to answer questions in relevant manner. She apparently has her apartment available to return and is not evicted according to the geriatric social worker. She is denying any hallucinations and denies any suicidal thoughts and hoping to be able to get her cat from the [facility]. She appears still very easily distracted and moderately anxious but reports feeling better and feeling safer. HISTORY: . VITAL SIGNS: See below. NEW TEST RESULTS: . CURRENT MEDICATIONS: See below. MENTAL STATUS EXAMINATION: Patient is a 35-year old female, who is , cooperative, in no acute distress. Speech: Is more relevant and coherent. Language skills are fair. Thought processes including: Relevant. Thought content: Denies any suicidal thoughts. Abstract reasoning, and computation: Fair. Description of associations: , Better organized. Description of abnormal or psychotic thoughts: No gross paranoia and denies any command hallucination. Judgment: Fair. Insight: fair. . Orientation: , Oriented,. Recent and remote memory: Fair. Attention span and concentration: Fair. Language: . Fund of knowledge: [Average,]. Mood: [, Mildly anxious but euthymic]. Affect: [, Appropriate]. DIAGNOSES: 1. . Schizophrenia, paranoid 2. . 3. . ASSESSMENT:[Showing moderate improvement and in good control] MANAGEMENT PLAN: [. Continue with the risperidone. Supportive therapy and discharge tomorrow]. TIME SPENT: [20] minutes. Vital Signs Vital Signs Date Time Temp Pulse Resp B/P (MAP) Pulse Ox O2 Delivery O2 Flow Rate FiO2 11/02/20 09:23 Room Air 11/02/20 06:21 98.4 104 20 103/63 (58) 97 Current Medications Current Medications Medications (Trade) Dose Ordered Sig/Justin Route PRN Reason Start Time Stop Time Status Last Admin Dose Admin Acetaminophen (Tylenol Tab) 650 mg Q6HP PRN PO HEADACHE or DISCOMFORT 10/21/20 01:55 Al Hydrox/Mg Hydrox/Simethicone (Mylanta) 30 ml Q4HP PRN PO HEARTBURN/INDIGESTION 10/21/20 01:55 Benztropine Mesylate (Cogentin) 1 mg BID PO 10/26/20 09:00 11/02/20 08:08 Home Med (Med Rec Complete!) ASDIRECTED XX 10/21/20 02:00 10/21/20 02:01 DC Magnesium Hydroxide (Milk Of Magnesia) 30 ml DAILYPRN PRN PO CONSTIPATION 10/21/20 01:55 Nicotine (Nicoderm Cq 21mg) 1 patch DAILY TD 10/21/20 09:00 11/02/20 08:08 Olanzapine (ZyPREXA ZYDIS) 5 mg Q4HP PRN PO AGITATION/ANXIETY 10/21/20 01:55 10/21/20 16:11 Risperidone (RisperDAL) 2 mg BID PO 10/21/20 09:00 10/26/20 11:59 DC 10/26/20 08:50 Risperidone (RisperDAL) 2 mg DAILY PO 10/27/20 09:00 11/02/20 08:08 Risperidone (RisperDAL) 4 mg QHS PO 10/26/20 21:00 11/01/20 20:24 Trazodone HCl (Desyrel) 50 mg QHSP PRN PO INSOMNIA 10/21/20 01:55 11/02/20 00:34 Allergies Coded Allergies: No Known Drug Allergies (Verified Allergy, Unknown, 09/21/19) ANAMARIA CHAUHAN M.D. Nov 02, 2020 10:54
[2020-11-03 06:00] VITALS: BP 113/59
[2020-11-03] MEDS ORDERED: NICO21PAT TD (08:31)
[2020-11-03] MEDS ORDERED: BENZ-52 PO (08:31)
[2020-11-03] MEDS ORDERED: RISP-9 PO ×2 (08:31)
[2020-11-03] MEDS: risperiDONE 2 MG TAB PO SCH (08:34)
[2020-11-03] MEDS: NICOTINE 21MG/24HR 1 EA TRANSDERMAL TD SCH (08:35)
[2020-11-03] MEDS: BENZTROPINE 1 MG TAB PO SCH (08:35)
--- NOTE | 2020-11-03 08:42 | MHDSPDOC ---
[facility] Discharge Summary Discharge Summary DATE OF ADMISSION: October 21, 2020 at 01:51 DATE OF DISCHARGE: 11/03/2020 DISCHARGE DIAGNOSES: 1. ., Schizophrenia, paranoid 2. . REASON FOR ADMISSION: 35-year-old single female with a long history of schizophrenia, but not been active in any treatment, admitted due to grossly disorganized and actively hallucinating. Mental status. Patient came to the emergency room claiming that she is being evicted from her apartment and feeling lost, confused and scared. Was found to be very confused and fragmented and actively hallucinating with no insight. CONSULTANTS INVOLVED: None TREATMENT AND PROGRESS ON THE UNIT : Patient was seen for supportive psychotherapy and education and was started on risperidone 2 mg twice a day, gradually increased to 2 mg in the morning and 4 mg at bedtime. She initially showed very slow response and remained disorganized, fragmented, with extremely limited progress. She is however, tolerating the medicine without any side effects and Cogentin 1 mg twice a day was prescribed to prevent any EPSE. After the first week. Patient is beginning to show gradual improvement with much better organized thinking and patient is denying any more hallucination and is not expressing any paranoid fear. She is eating and sleeping very well. Denies any serious depression. She was assisted with the administrator social welfare and found out that she is not being evicted and she is able to return to apartment and her [facility] in [facility]. She is smiling appropriately, reports feeling much better and safer and feeling stable to return to her apartment and willing to continue her outpatient treatment.. HOSPITAL COURSE: The patient is fully cooperated with the medicine and treatment without any acting out behavior and had very uneventful hospital stay. She didn't exhibit any aggressive or suicidal behavior, had no physical complaint and denies any paranoid fear and appears to be at her baseline mental status DISCHARGE ASSESSMENT: Much improved and stable MENTAL STATUS EXAMINATION ON DISCHARGE: Patient is a 35-year old female, who is , pleasant, cooperative. Speech is relevant, rational. Language skills are failure. Thought processes including: Organized. Thought content: Denies any paranoid fear. Denies any suicidal thoughts. Abstract reasoning, and computation: Fair. Description of associations: Organized, relevant. Description of abnormal or psychotic thoughts: Denies any hallucination and not delusional. Judgment: Fair . Insight: Fair. Orientation to were organized. Recent and remote memory: Fair. Attention span and concentration: Fair . Language: . Fund of knowledge: Average. Mood: Euthymic. Affect: , Appropriate. MEDICATIONS ON DISCHARGE: - Risperidone 2 mg in the morning and 4 mg at bedtime for 7 days with 3 refills. - , Cogentin 1 mg twice a day for 7 days with 3 refills. - for . PLAN/FOLLOWUP ARRANGEMENTS: Arranged by the administrator social welfare. The amount of time spent in the coordination of care for this patient was approximately 40 minutes. ETOH/Disorder Med Rx ETOH/DRUG DISORDER RX: N/A Vital Signs/I&Os Vital Signs Date Time Temp Pulse Resp B/P (MAP) Pulse Ox O2 Delivery O2 Flow Rate FiO2 11/02/20 09:23 Room Air 11/02/20 06:21 98.4 104 20 103/63 (30) 97 Medications Scheduled Benztropine Mesylate (Benztropine Mesylate) 1 Mg Tablet, 1 MG PO BID for for side effect for 7 Days, #14 Nicotine (Nicotine Patch) 21 Mg Patch.td24, 1 PATCH TD DAILY for nicotine cessation for 7 Days, #7 Risperidone (Risperidone) 2 Mg Tablet, 2 MG PO DAILY for psychosis for 7 Days, #7 Risperidone (Risperidone) 2 Mg Tablet, 4 MG PO QHS for psychosis for 7 Days, #14 Allergies Coded Allergies: No Known Drug Allergies (Verified Allergy, Unknown, 09/21/19) ANAMARIA CHAUHAN M.D. Nov 03, 2020 08:42
== END 2020-11-03 11:00 | disposition home or self-care (01) | DRG 885 ==
LOC: M ED 18:30 → M PSY 10-21 01:51
PROVIDERS: ADMIT Psychiatry & Neurology Psychiatry; ATTEND Psychiatry & Neurology Psychiatry
DX: F20.0 Paranoid schizophrenia (principal); F41.9 Anxiety disorder, unspecified; G47.00 Insomnia, unspecified; F17.210 Nicotine dependence, cigarettes, uncomplicated; Z91.5 Personal history of self-harm; Z90.49 Acquired absence of other specified parts of digestive tract; Z20.822 Contact with and (suspected) exposure to COVID-19

== ENCOUNTER 2021-01-11 20:10 | Inpatient (IN) | payer MEDICARE ==
[~2021-01-11] VITALS: Ht 157.5 cm; Wt 68.0 kg
[~2021-01-11 20:10] MED LIST changes: +BENZ-52 PO; +NICO21PAT TD; -OLAN10TA2 PO; +OLAN1TAB20 PO; +RISP-9 PO
[2021-01-11 21:48] LABS: HEMATOCRIT 39.7 % (36.0-47.0); HEMOGLOBIN 13.4 g/dl (12.0-15.5); MEAN CORPUSCULAR HEMOGLOBIN 32.9 pg (27.0-33.0); MEAN CORPUSCULAR HGB CONC 33.8 g/dl (32.0-36.5); MEAN CORPUSCULAR VOLUME 97.5 fl (80.0-96.0); PLATELET COUNT, AUTOMATED 346 10^3/uL (150-450); RED BLOOD COUNT 4.07 10^6/uL (4.00-5.40); WHITE BLOOD COUNT 8.9 10^3/uL (4.0-10.0)
[2021-01-11 22:07] LABS: AMPHETAMINES LEVEL URINE NEGATIVE (NEGATIVE); BARBITURATES URINE NEGATIVE (NEGATIVE); BENZODIAZEPINES URINE NEGATIVE (NEGATIVE); CANNABINOIDS URINE NEGATIVE (NEGATIVE); COCAINE METABOLITE URINE NEGATIVE (NEGATIVE); METHADONE URINE NEGATIVE (NEGATIVE); OPIATES URINE NEGATIVE (NEGATIVE); PHENCYCLIDINE URINE NEGATIVE (NEGATIVE)
[2021-01-11 22:18] LABS: ACETAMINOPHEN LEVEL 2.8 UG/ML (10.0-30.0); ALBUMIN 3.9 GM/DL (3.2-5.2); ALT/SGPT 20 U/L (12-78); BILIRUBIN,DIRECT < 0.1 MG/DL (0.0-0.2); BILIRUBIN,TOTAL 0.2 MG/DL (0.2-1.0); BLOOD UREA NITROGEN 10 MG/DL (7-18); CALCIUM LEVEL 8.9 MG/DL (8.5-10.1); CARBON DIOXIDE LEVEL 33 MEQ/L (21-32); CHLORIDE LEVEL 109 MEQ/L (98-107); CREATININE FOR GFR 0.65 MG/DL (0.55-1.30); ETHYL ALCOHOL (ETHANOL) < 0.003 % (0.000-0.010); GLOMERULAR FILTRATION RATE > 60.0 (>60); GLUCOSE, FASTING 78 MG/DL (70-100); POTASSIUM SERUM 3.8 MEQ/L (3.5-5.1); SALICYLATE LEVEL 5.9 MG/DL (5.0-30.0); SODIUM LEVEL 143 MEQ/L (136-145); TOTAL PROTEIN 6.6 GM/DL (6.4-8.2)
[2021-01-11 22:26] LABS: HCG, SERUM QUALITATIVE NEGATIVE (NEGATIVE)
[2021-01-12 11:50] LABS: RSV AMPLIFICATION NEGATIVE (NEGATIVE)
[2021-01-12] MEDS ORDERED: MAALOX 30 ML SUSP *UDC PO PRN (12:15)
[2021-01-12] MEDS ORDERED: ACETAMINOPHEN TAB 650MG DOSE (2X325MG) PO PRN (12:15)
[2021-01-12] MEDS ORDERED: HOME MED LIST COMPLETE! XX SCH (12:30)
[2021-01-12 16:14] VITALS: BP 139/77
[2021-01-12] MEDS: traZODone 50 MG TAB PO PRN (19:57)
[2021-01-13 06:24] VITALS: BP 119/78
[2021-01-13] MEDS: OLANZapine ORAL DISINTEGRATING TAB 5MG PO PRN (08:24)
[2021-01-13] MEDS: NICOTINE 21MG/24HR 1 EA TRANSDERMAL TD PRN (08:53)
--- NOTE | 2021-01-13 10:59 | MHHPEPDOC ---
General Date Of Admission: Jan 12, 2021 Legal Status: 9.39 Chief Complaint Wanting treatment for schizophrenia. History of Present Illness HISTORY OF THE PRESENT ILLNESS: Patient is a 35 -year-old , female, who came to the ER after experiencing overwhelming anxiety and not taking her medications. She reports coming to ER because she wants help getting back on medication for schizophrenia and seeing outpatient management. She was last discharged from [facility] in November and placed on Risperidone. Never got treatment outpatient and never continued taking medications after being discharged. Says has never been treated with a monthly shot but would like to try one instead of taking pills daily. She denied suicidal thoughts and reports feeling safe at home. Psychiatric Review of Systems Depression (2 or more weeks): difficulty concentrating, appetite changes Liv (4 or more days of): irritable/elevated mood, grandiosity, talkativity, pressured, flight of ideas Psychosis: delusions, paranoia Anxiety: gen/non-specific anxiety Past Psychiatric History Previous Psychiatric Diagnosis: Schizophrenia. Previous Psychiatric Admissions: yes; November. Suicide Attempts: none. Psychiatric Follow-up: [facility]. Psychiatric medications: Risperidone. Past Medical History Head Injury: No Seizures: No Hospitalizations: Yes Surgeries: Yes Addiction History nicotine Social History Childhood: reports being adopted from [place] and [place]. Has older brother. Abuse/Trauma: none reported. Current Living Situation: lives alone in apartment. Education: graduated from [employer] in ; reported some college. Employment: unknown. Social Support: reported none. Legal: reports unknown ongoing lawsuit of some type. Marital: but ; reports having 3 children (23 ("safe haven"), 17, 14). Mental Status Examination General Appearance: disheveled, hospital scubs/clothing Build: average Demeanor: very figety Eye Contact: average Activity: anxious Behavior: hyperactive, restless Speech: rapid Mood: anxious, elevated Affect: anxious Thought Process: other (scattered) Thought Content (Delusions): paranoia, delusions Thought Content (Other): preoccupied ("people" out to get her ) Thought Content (Aggressive): none reported Perception (Hallucinations): none reported Perception (Other): none reported Cognition (Impairment of): none reported Cognition(Intelligence Est.): average Oriented: Awake, Alert, Oriented times three Insight: fair Judgment: Fair Psychosis: Other (paranoia and delusions) Diagnoses Schizophrenia; nicotine use disorder; unspecified anxiety disorder A-FIB/CHADSVASC A-FIB History Current/History of A-Fib/PAF?: No Treatment Treatment ordered: NONE Assessment 35yo female who reported to ED because she wanted treatment for schizophrenia. Was last seen in [facility] in November but never followed up with out patient treatment or continued medication. Is interested in being on a monthly shot regimen for schizophrenia and says will follow up with [facility]. During interview patient was paranoid and delusional and spoke about lawsuits with unknown parties who are forcibly taking money from her bank account. Patient will start on oral antipsychotic and work toward monthly IM injections in effort to reduce episodes of readmissions and reinforce compliance to treatment and therapy. Initial Treatment Plan 1. Patient was admitted on a 9.39 status. 2. Complete history was obtained. 3. With patients permission, family will be contacted and database will be expanded. 4. Patients medication regimen will be reviewed and changed accordingly. 5. Patient will be provided with protected environment. 6. Patient will be treated with individual, group, and milieu therapies. 7. Patient will receive supportive psych-education. 8. Discharge planning will commence immediately. 9. Outpatient follow-up treatment will be strongly recommended. 10. The initial treatment plan will focus initially on: * Depression. * Risk for suicide. ESTIMATED LENGTH OF STAY: 5-7 DAYS. TIME SPENT COUNSELING AND COORDINATING INITIAL CARE: 60 minutes. Tobacco Cessation Screen Tobacco Cessation Tx Ordered?: Yes Ordered/Pending Vital Signs Vital Signs Date Time Temp Pulse Resp B/P (MAP) Pulse Ox O2 Delivery O2 Flow Rate FiO2 01/13/21 06:24 97.8 81 16 119/78 (92) 100 Room Air Laboratory Data 24H Labs Laboratory Tests 2 01/12/21 10:53: Coronavirus (COVID-19)(PCR) NEGATIVE, Influenza Type A (RT-PCR) NEGATIVE, Influenza Type B (RT-PCR) NEGATIVE, Respiratory Syncytial Virus (PCR) NEGATIVE Medications No Active Prescriptions or Reported Meds Allergies Coded Allergies: No Known Drug Allergies (Verified Allergy, Unknown, 09/21/19) Gomez Howard DO Jan 13, 2021 10:49 ELVA HARTMAN NP Jan 17, 2021 14:01
[2021-01-13] MEDS: hydrOXYzine 50 MG TAB PO PRN (14:00)
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
[2021-01-13 19:22] VITALS: BP 125/66
[2021-01-13] MEDS: traZODone 50 MG TAB PO PRN (20:05)
[2021-01-13] MEDS ORDERED: PALIPERIDONE 3 MG ER TAB (INVEGA) PO SCH (21:00)
[2021-01-14] MEDS: hydrOXYzine 50 MG TAB PO PRN ×2 (01:17→20:18)
[2021-01-14 06:32] VITALS: BP 100/57
[2021-01-14] MEDS: NICOTINE 21MG/24HR 1 EA TRANSDERMAL TD PRN (08:00)
--- NOTE | 2021-01-14 12:44 | MHIPNPDOC ---
[facility] Progress Note Progress Note DATE OF SERVICE: 01/14/21 HISTORY: Patient is a 35 -year-old , female, who came to the ER after experiencing overwhelming anxiety and not taking her medications. She reports c oming to ER because she wants help getting back on medication for schizophrenia and seeing outpatient management. She was last discharged from [facility] in November and placed on Risperidone. Never got treatment outpatient and never continued taking medications after being discharged. Says has never been treated with a monthly shot but would like to try one instead of taking pills daily. She denied suicidal thoughts and reports feeling safe at home. VITAL SIGNS: See below. CURRENT MEDICATIONS: See below. MENTAL STATUS EXAMINATION: Patient is a 35 -year-old , female, who came to the ER after experiencing overwhelming anxiety and not taking her medications. Speech: normal rate, tone and volume, minimal responses Language skills are intact Thought processes including: linear and goal oriented Thought content: reports mild depression and anxiety. Denies suicidal/homicidal ideation, planning or intent. Abstract reasoning, and computation: fair Description of associations: denies, none observed Description of abnormal or psychotic thoughts: denies, none observed. Judgment: fair Insight: fair Orientation: alert and oriented to person, place, time and situation Recent and remote memory: intact Attention span and concentration: good Language: expansive Fund of knowledge: average Mood: Euthymic Mood Affect: reactive DIAGNOSES: Schizophrenia; nicotine use disorder; unspecified anxiety disorder ASSESSMENT: Patient reporting no reactions or side effects from Invega. Will increase to 6 mg. Patient states that she is "doing good" today. Does not appear delusional during the interview. She had no statements about lawsuits or people after her. She feels that she will be ready for discharge next week and is hopeful that she can get the IM injections soon. Appears very motivated to stabilize and return home. MANAGEMENT PLAN: Continue all medications and supportive therapy. Will discharge when stable. Patient is agreeable to monthly decanoate which will start next week. TIME SPENT: 25 minutes. Vital Signs Vital Signs Date Time Temp Pulse Resp B/P (MAP) Pulse Ox O2 Delivery O2 Flow Rate FiO2 01/14/21 06:32 97.7 72 16 100/57 (71) 98 Room Air Current Medications Current Medications Medications (Trade) Dose Ordered Sig/Justin Route PRN Reason Start Time Stop Time Status Last Admin Dose Admin Acetaminophen (Tylenol Tab) 650 mg Q6HP PRN PO HEADACHE or MILD DISCOMFORT 01/12/21 12:15 Al Hydrox/Mg Hydrox/Simethicone (Mylanta) 30 ml Q4HP PRN PO HEARTBURN/INDIGESTION 01/12/21 12:15 Home Med (Home Med List Complete!) ASDIRECTED XX 01/12/21 12:30 01/12/21 12:30 DC Hydroxyzine HCl (Atarax) 50 mg Q6HP PRN PO ANXIETY 01/13/21 10:50 01/14/21 01:17 Magnesium Hydroxide (Milk Of Magnesia) 30 ml DAILYPRN PRN PO CONSTIPATION 01/12/21 12:15 Nicotine (Nicoderm Cq 21mg) 1 patch DAILYPRN PRN TD NICOTINE WITHDRAWAL 01/13/21 08:35 01/14/21 08:00 Olanzapine (ZyPREXA ZYDIS) 10 mg Q4HP PRN PO AGITATION 01/12/21 12:35 01/13/21 08:24 Paliperidone (Invega) 3 mg QHS PO 01/13/21 21:00 01/13/21 20:05 Trazodone HCl (Desyrel) 50 mg QHSP PRN PO INSOMNIA 01/12/21 12:15 01/13/21 20:05 Allergies Coded Allergies: No Known Drug Allergies (Verified Allergy, Unknown, 09/21/19) ELVA HARTMAN NP Jan 14, 2021 12:34
[2021-01-14] MEDS: PALIPERIDONE 6 MG ER TAB (INVEGA) PO SCH (14:39)
[2021-01-14 17:17] VITALS: BP 134/68
[2021-01-14] MEDS: traZODone 50 MG TAB PO PRN (20:18)
[2021-01-14] MEDS: OLANZapine ORAL DISINTEGRATING TAB 5MG PO PRN (23:07)
[2021-01-15 07:21] VITALS: BP 120/65
[2021-01-15] MEDS: PALIPERIDONE 6 MG ER TAB (INVEGA) PO SCH (08:05)
[2021-01-15] MEDS: NICOTINE 21MG/24HR 1 EA TRANSDERMAL TD PRN (08:05)
[2021-01-15 17:22] VITALS: BP 132/69
[2021-01-15] MEDS: MOM 30ML SUSPENSION UDC PO PRN (20:22)
[2021-01-15] MEDS: traZODone 50 MG TAB PO PRN (20:22)
[2021-01-15] MEDS: hydrOXYzine 50 MG TAB PO PRN (20:22)
[2021-01-16 06:42] VITALS: BP 124/73
[2021-01-16] MEDS: PALIPERIDONE 6 MG ER TAB (INVEGA) PO SCH (08:15)
[2021-01-16] MEDS: NICOTINE 21MG/24HR 1 EA TRANSDERMAL TD PRN (08:16)
[2021-01-16 18:22] VITALS: BP 141/63
[2021-01-16] MEDS: traZODone 50 MG TAB PO PRN (21:31)
[2021-01-17 06:51] VITALS: BP 127/61
[2021-01-17] MEDS: PALIPERIDONE 6 MG ER TAB (INVEGA) PO SCH (09:13)
[2021-01-17] MEDS: NICOTINE 21MG/24HR 1 EA TRANSDERMAL TD PRN (09:14)
--- NOTE | 2021-01-17 10:27 | MHIPN ---
[facility] PROGRESS NOTE DATE: 01/15/2021 VITAL SIGNS: Blood pressure 120/65, pulse 76, temperature 98. This is a video assessment, she is at the inpatient psychiatry unit, I am at home, she agrees to this, and its limitations. CHIEF COMPLAINT: Feels a bit better. SUBJECTIVE: Seen for followup. Indicates has been feeling a bit better, but says it is hard for her to explain this, though suggests thoughts are more organized, is anxious, but less so. Sleep a bit improved. MENTAL STATUS EXAMINATION: Fair hygiene, cooperative, no agitation, no psychomotor retardation, tangential speech and thoughts. No active suicidal thoughts or intents, no overt paranoia, though this may be "below the surface." Judgment and insight are compromised. ASSESSMENT: Schizophrenia. Unspecified anxiety disorder. PLAN: Continue current care, this includes Invega and hydroxyzine. Encourage participation in activities in the unit. Further recommendations will be made depending on the clinical picture.
--- NOTE | 2021-01-17 11:11 | MHIPN ---
[facility] PROGRESS NOTE DATE: 01/16/2021 VITAL SIGNS: Blood pressure 124/73, pulse 91, temperature 97.5. This is a video assessment, she is aware of it, agrees to it, she is at the inpatient psychiatry unit, I am at home. CHIEF COMPLAINT: Says feels okay. SUBJECTIVE: Seen for followup. Indicates feels okay, and that she slept very well last night, feels rested. Appetite okay. MENTAL STATUS EXAMINATION: She is unkempt, she is cooperative. No agitation, no psychomotor retardation. Displays looseness of associations in her thoughts, somewhat incongruent affect. Denies any suicidal thoughts or intents, no homicidal ideas or intents. Appears at times to be somewhat internally preoccupied, no overt delusional ideations elicited. Cognition grossly intact. Judgment and insight remain compromised. ASSESSMENT: Schizophrenia. PLAN: Continue current care, observations, encourage participation in activities in the unit. She is to continue with paliperidone as well. Further recommendations will be made depending on the clinical picture. She will be seeing the assigned clinician tomorrow.
--- NOTE | 2021-01-17 16:39 | MHIPNPDOC ---
[facility] Progress Note Progress Note DATE OF SERVICE: 01/17/21 HISTORY: Patient is a 35 -year-old , female, who came to the ER after experiencing overwhelming anxiety and not taking her medications. She reports c oming to ER because she wants help getting back on medication for schizophrenia and seeing outpatient management. She was last discharged from [facility] in November and placed on Risperidone. Never got treatment outpatient and never continued taking medications after being discharged. Says has never been treated with a monthly shot but would like to try one instead of taking pills daily. She denied suicidal thoughts and reports feeling safe at home. VITAL SIGNS: See below. CURRENT MEDICATIONS: See below. MENTAL STATUS EXAMINATION: Patient is a 35 -year-old , female, who came to the ER after experiencing overwhelming anxiety and not taking her medications. Hygiene and grooming is poor, hair is extremely disheveled and matted Speech: normal rate, tone and volume, minimal responses Language skills are intact Thought processes including: linear and goal oriented, at times bizarre Thought content: reports mild depression and anxiety. Denies suicidal/homicidal ideation, planning or intent. Abstract reasoning, and computation: fair Description of associations: denies, minimizing abnormal psychotic symptoms but is disengaged and superficial Description of abnormal or psychotic thoughts: denies, internally preoccupied Judgment: fair Insight: fair Orientation: alert and oriented to person, place, time and situation Recent and remote memory: intact Attention span and concentration: good Language: expansive Fund of knowledge: average Mood: Euthymic Mood Affect: reactive DIAGNOSES: Schizophrenia; nicotine use disorder; unspecified anxiety disorder ASSESSMENT: Patient appears superficial and disengaged in interview. Reports that she is feeling better but she appears to be minimizing any delusional or bizarre thinking. Patient is not caring for her ADLS, appears to be talking to herself in the hallway. Patient's appearance is disheveled, unkempt, her hair is matted. She is very superficial in her interview and does not actively participate - she answers minimally MANAGEMENT PLAN: Continue all medications and supportive therapy. Will discharge when stable. Patient is agreeable to monthly decanoate which will start next week. Patient has been taking invega 6 mg daily, will order Invega Sustenna 17 mg. Unable to get outpatient mental health reports of last decanoate administration if ever TIME SPENT: 25 minutes. Vital Signs Vital Signs Date Time Temp Pulse Resp B/P (MAP) Pulse Ox O2 Delivery O2 Flow Rate FiO2 01/17/21 06:51 98.0 91 16 127/61 (83) Room Air 01/16/21 06:42 99 Current Medications Current Medications Medications (Trade) Dose Ordered Sig/Justin Route PRN Reason Start Time Stop Time Status Last Admin Dose Admin Acetaminophen (Tylenol Tab) 650 mg Q6HP PRN PO HEADACHE or MILD DISCOMFORT 01/12/21 12:15 Al Hydrox/Mg Hydrox/Simethicone (Mylanta) 30 ml Q4HP PRN PO HEARTBURN/INDIGESTION 01/12/21 12:15 Home Med (Home Med List Complete!) ASDIRECTED XX 01/12/21 12:30 01/12/21 12:30 DC Hydroxyzine HCl (Atarax) 50 mg Q6HP PRN PO ANXIETY 01/13/21 10:50 01/15/21 20:22 Magnesium Hydroxide (Milk Of Magnesia) 30 ml DAILYPRN PRN PO CONSTIPATION 01/12/21 12:15 01/15/21 20:22 Nicotine (Nicoderm Cq 21mg) 1 patch DAILYPRN PRN TD NICOTINE WITHDRAWAL 01/13/21 08:35 01/17/21 09:14 Olanzapine (ZyPREXA ZYDIS) 10 mg Q4HP PRN PO AGITATION 01/12/21 12:35 01/14/21 23:07 Paliperidone (Invega) 3 mg QHS PO 01/13/21 21:00 01/14/21 12:42 DC 01/13/21 20:05 Paliperidone (Invega) 6 mg DAILY PO 01/14/21 09:00 01/17/21 09:13 Trazodone HCl (Desyrel) 50 mg QHSP PRN PO INSOMNIA 01/12/21 12:15 01/17/21 08:47 DC 01/16/21 21:31 Trazodone HCl (Desyrel) 100 mg QHSP PRN PO INSOMNIA 01/17/21 08:50 Allergies Coded Allergies: No Known Drug Allergies (Verified Allergy, Unknown, 09/21/19) ELVA HARTMAN NP Jan 17, 2021 16:31
[2021-01-17 17:48] VITALS: BP 130/77
[2021-01-17] MEDS: hydrOXYzine 50 MG TAB PO PRN (19:51)
[2021-01-17] MEDS: MOM 30ML SUSPENSION UDC PO PRN (19:51)
[2021-01-18 06:52] VITALS: BP 133/70
[2021-01-18] MEDS: PALIPERIDONE 6 MG ER TAB (INVEGA) PO SCH (08:10)
[2021-01-18] MEDS: NICOTINE 21MG/24HR 1 EA TRANSDERMAL TD PRN (08:12)
[2021-01-18] MEDS ORDERED: PALIPERIDONE PALMITATE 156MG/1ML INJ(INVEGA)(FREE PSY INPT ONLY) IM ONE (09:00)
--- NOTE | 2021-01-18 14:57 | MHIPNPDOC ---
[facility] Progress Note Progress Note DATE OF SERVICE: 01/18/21 HISTORY: Patient is a 33-year-old female who came to the ER for complaint of overwhelming anxiety and wanting medication management for schizophrenia. She was last seen by the [facility] in November and was put on risperidone but did not continue outpatient treatment. She would like to try a monthly shot for schizophrenic management instead of daily pills. She has denied suicidal ideations but has reported hearing voices.. VITAL SIGNS: See below. NEW TEST RESULTS: . CURRENT MEDICATIONS: See below. MENTAL STATUS EXAMINATION: Patient is a 33-year old female, who went to ER after experiencing overwhelming anxiety Speech: Is normal but with minimal responses. Language skills are intact. Thought processes including: Linear but tangential. Thought content: Depression anxiety. Abstract reasoning, and computation: Poor. Description of associations: Hearing "little Kuldip's" but did not elaborate what they were saying. Description of abnormal or psychotic thoughts: Hearing voices. Judgment: Fair. Insight: Fair. Orientation: Alert and oriented x4. Recent and remote memory: Intact. Attention span and concentration: Good (preoccupied with hair). Language: Good. Fund of knowledge: Average. Mood: Distracted. Affect: Flat. DIAGNOSES: 1. Schizophrenia. 2. Nicotine use 3. Unspecified anxiety disorder. ASSESSMENT:31-year-old schizophrenic female who continues to be superficial and disengaged during interview and giving minimal responses, hesitates to answer. Appears to have internal stimuli. She reports feeling better but she appears to be minimizing any voices she has been hearing. She continues to not care for her hair (appears matted blood patient reports that is the style she is trying to maintain). Is quite disheveled, wearing her T-shirt on inside out and backwards. MANAGEMENT PLAN: Continue medication management and supportive therapy and plan to discharge in stable. Invega will be increased to 9 mg for the next couple days and then Invega Sustenna injection (156mg) will be given.. TIME SPENT: 25 minutes. Vital Signs Vital Signs Date Time Temp Pulse Resp B/P (MAP) Pulse Ox O2 Delivery O2 Flow Rate FiO2 01/18/21 06:52 97.3 74 18 133/70 (91) 99 Room Air Current Medications Current Medications Medications (Trade) Dose Ordered Sig/Justin Route PRN Reason Start Time Stop Time Status Last Admin Dose Admin Acetaminophen (Tylenol Tab) 650 mg Q6HP PRN PO HEADACHE or MILD DISCOMFORT 01/12/21 12:15 Al Hydrox/Mg Hydrox/Simethicone (Mylanta) 30 ml Q4HP PRN PO HEARTBURN/INDIGESTION 01/12/21 12:15 Home Med (Home Med List Complete!) ASDIRECTED XX 01/12/21 12:30 01/12/21 12:30 DC Hydroxyzine HCl (Atarax) 50 mg Q6HP PRN PO ANXIETY 01/13/21 10:50 01/17/21 19:51 Magnesium Hydroxide (Milk Of Magnesia) 30 ml DAILYPRN PRN PO CONSTIPATION 01/12/21 12:15 01/17/21 19:51 Nicotine (Nicoderm Cq 21mg) 1 patch DAILYPRN PRN TD NICOTINE WITHDRAWAL 01/13/21 08:35 01/18/21 08:12 Olanzapine (ZyPREXA ZYDIS) 10 mg Q4HP PRN PO AGITATION 01/12/21 12:35 01/14/21 23:07 Paliperidone (Invega) 3 mg QHS PO 01/13/21 21:00 01/14/21 12:42 DC 01/13/21 20:05 Paliperidone (Invega) 6 mg DAILY PO 01/14/21 09:00 01/18/21 12:53 DC 01/18/21 08:10 Paliperidone (Invega) 9 mg DAILY PO 01/19/21 09:00 Trazodone HCl (Desyrel) 50 mg QHSP PRN PO INSOMNIA 01/12/21 12:15 01/17/21 08:47 DC 01/16/21 21:31 Trazodone HCl (Desyrel) 100 mg QHSP PRN PO INSOMNIA 01/17/21 08:50 Allergies Coded Allergies: No Known Drug Allergies (Verified Allergy, Unknown, 09/21/19) Gomez Howard DO Jan 18, 2021 14:56 ELVA HARTMAN NP Jan 18, 2021 15:07
[2021-01-18 16:29] VITALS: BP 126/61
[2021-01-18] MEDS: traZODone 100 MG TAB PO PRN (19:40)
[2021-01-18] MEDS: MOM 30ML SUSPENSION UDC PO PRN (19:40)
[2021-01-19 07:01] VITALS: BP 115/57
[2021-01-19] MEDS: PALIPERIDONE 3 MG ER TAB (INVEGA) PO SCH (08:34)
[2021-01-19] MEDS: NICOTINE 21MG/24HR 1 EA TRANSDERMAL TD PRN (08:34)
--- NOTE | 2021-01-19 10:17 | MHIPNPDOC ---
[facility] Progress Note Progress Note DATE OF SERVICE: 01/19/21 HISTORY: Patient is a 34-year-old female came to the ER for complaint of overwhelming anxiety and wanting medication to manage her schizophrenia. She was seen in [facility] in November for which she was placed on risperidone but after discharge she did not can continue outpatient treatment and follow-up. She is interested in being managed on a monthly shot of Invega Sustenna which has been ordered and will be started in a couple days. She denies suicidal ideations but has reported hearing voices which she elaborate on what they were saying. VITAL SIGNS: See below. NEW TEST RESULTS:. CURRENT MEDICATIONS: See below. MENTAL STATUS EXAMINATION: Patient is a 33-year old female, who was admitted to [facility] after experiencing overwhelming anxiety. Speech: Normal, minimal responses. Language skills are intact. Thought processes including: Linear, tangential, hostile. Thought content: Depression, anxiety, agitation. Abstract reasoning, and comput ation: Poor. Description of associations: Continues to hear voices but does not elaborate on what they are saying, and also voiced displeasure at housing situation. Description of abnormal or psychotic thoughts: Hearing voices. Judgment: Fair. Insight: Fair (realizes that she needs help). Orientation: Alert and oriented x4. Recent and remote memory: Intact. Attention span and concentration: Good, continues to be preoccupied with hair, plans on an aggressive tangent about housing and a provider to be helping her. Language: Good. Fund of knowledge: Average. Mood: Depressed, agitated. Affect: Flat and at times abrasive. DIAGNOSES: 1. Schizophrenia. 2. Nicotine use disorder. 3. Unspecified anxiety disorder. ASSESSMENT: Patient is a 33-year-old schizophrenic female who continues to be superficial and disengaged during interview (giving minimal responses in one-wor d answers). She also went on a verbally aggressive tangent about her housing situation and how she believes she is being treated here (makes bizarre statements about "domination"). TLS housing process was explained to patient. She is going through [facility] for housing despite stating that she has a lease on an apartment. She continues to be preoccupied with her hair (matted) was playing with it throughout the interview. She is aware of her schizophrenic symptoms in nature. MANAGEMENT PLAN: Continue medication management and supportive therapy. Plan to discharge when stable. Continue Invega 9 mg and additionally will add Invega Saul stenna injection (156 mg) on Sunday. TIME SPENT: 25 minutes. Vital Signs Vital Signs Date Time Temp Pulse Resp B/P (MAP) Pulse Ox O2 Delivery O2 Flow Rate FiO2 01/19/21 07:01 98.7 101 18 115/57 (76) 96 Room Air Current Medications Current Medications Medications (Trade) Dose Ordered Sig/Justin Route PRN Reason Start Time Stop Time Status Last Admin Dose Admin Acetaminophen (Tylenol Tab) 650 mg Q6HP PRN PO HEADACHE or MILD DISCOMFORT 01/12/21 12:15 Al Hydrox/Mg Hydrox/Simethicone (Mylanta) 30 ml Q4HP PRN PO HEARTBURN/INDIGESTION 01/12/21 12:15 Home Med (Home Med List Complete!) ASDIRECTED XX 01/12/21 12:30 01/12/21 12:30 DC Hydroxyzine HCl (Atarax) 50 mg Q6HP PRN PO ANXIETY 01/13/21 10:50 01/17/21 19:51 Magnesium Hydroxide (Milk Of Magnesia) 30 ml DAILYPRN PRN PO CONSTIPATION 01/12/21 12:15 01/18/21 19:40 Nicotine (Nicoderm Cq 21mg) 1 patch DAILYPRN PRN TD NICOTINE WITHDRAWAL 01/13/21 08:35 01/19/21 08:34 Olanzapine (ZyPREXA ZYDIS) 10 mg Q4HP PRN PO AGITATION 01/12/21 12:35 01/14/21 23:07 Paliperidone (Invega) 3 mg QHS PO 01/13/21 21:00 01/14/21 12:42 DC 01/13/21 20:05 Paliperidone (Invega) 6 mg DAILY PO 01/14/21 09:00 01/18/21 12:53 DC 01/18/21 08:10 Paliperidone (Invega) 9 mg DAILY PO 01/19/21 09:00 01/19/21 08:34 Trazodone HCl (Desyrel) 50 mg QHSP PRN PO INSOMNIA 01/12/21 12:15 01/17/21 08:47 DC 01/16/21 21:31 Trazodone HCl (Desyrel) 100 mg QHSP PRN PO INSOMNIA 01/17/21 08:50 01/18/21 19:40 Allergies Coded Allergies: No Known Drug Allergies (Verified Allergy, Unknown, 09/21/19) Gomez Howard DO Jan 19, 2021 10:17 ELVA HARTMAN NP Jan 19, 2021 11:24
[2021-01-19 16:24] VITALS: BP 134/63
[2021-01-19] MEDS: hydrOXYzine 50 MG TAB PO PRN (21:07)
[2021-01-19] MEDS: traZODone 100 MG TAB PO PRN (21:07)
--- NOTE | 2021-01-19 23:27 | ECGEPIP ---
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 Electronically Signed on 01-19-2021 23:26:57 EDT by Nikko Cervantes
[2021-01-20 06:56] VITALS: BP 116/59
[2021-01-20] MEDS: PALIPERIDONE 3 MG ER TAB (INVEGA) PO SCH (08:19)
[2021-01-20] MEDS: NICOTINE 21MG/24HR 1 EA TRANSDERMAL TD PRN (08:19)
[2021-01-20] MEDS ORDERED: TUBERCULIN PPD 5 UNITS/0.1 ML ID ONE ×2 (08:45→14:00)
[2021-01-20] MEDS ORDERED: **PENDING PPD ENTRY XX SCH (09:00)
--- NOTE | 2021-01-20 14:26 | MHIPNPDOC ---
[facility] Progress Note Progress Note DATE OF SERVICE: 01/20/21 HISTORY: HISTORY: Patient is a 35 -year-old , female, who came to the ER after experiencing overwhelming anxiety and not taking her medications. She reports coming to ER because she wants help getting back on medication for schizophrenia and seeing outpatient management. She was last discharged from [facility] in November and placed on Risperidone. Never got treatment outpatient and never continued taking medications after being discharged. Says has never been treated with a monthly shot but would like to try one instead of taking pills daily. She denied suicidal thoughts and reports feeling safe at home. VITAL SIGNS: See below. CURRENT MEDICATIONS: See below. MENTAL STATUS EXAMINATION: Patient is a 35 -year-old , female, who came to the ER after experiencing overwhelming anxiety and not taking her medications. Hygiene and grooming is poor, hair is extremely disheveled and matted Speech: normal rate, tone and volume, minimal responses Language skills are intact Thought processes including: disorganized, at times bizarre Thought content: denies depression and anxiety. Denies suicidal/homicidal ideation, planning or intent. Abstract reasoning, and computation: fair Description of associations: denies, minimizing abnormal psychotic symptoms but is disengaged and superficial, disorganized, random thoughts Description of abnormal or psychotic thoughts: denies, internally preoccupied Judgment: fair Insight: fair Orientation: alert and oriented to person, place, time and situation Recent and remote memory: intact Attention span and concentration: good Language: expansive Fund of knowledge: average Mood: Euthymic Mood Affect: reactive DIAGNOSES: Schizophrenia; nicotine use disorder; unspecified anxiety disorder ASSESSMENT: Patient observed with psychotic behaviors. Walks around the unit but observed to be preoccupied and at times talking to herself. She has not attended to her ADLS, continues to have disorganized and scattered thinking. Is visible on the unit but not able to engage with peers or staff. MANAGEMENT PLAN: Continue all medications and supportive therapy. Will discharge when stable. Patient is requesting a transfer to [facility]. TIME SPENT: 25 minutes. Vital Signs Vital Signs Date Time Temp Pulse Resp B/P (MAP) Pulse Ox O2 Delivery O2 Flow Rate FiO2 01/20/21 06:56 97.7 71 14 116/59 (78) 99 Room Air Current Medications Current Medications Medications (Trade) Dose Ordered Sig/Justin Route PRN Reason Start Time Stop Time Status Last Admin Dose Admin Acetaminophen (Tylenol Tab) 650 mg Q6HP PRN PO HEADACHE or MILD DISCOMFORT 01/12/21 12:15 Al Hydrox/Mg Hydrox/Simethicone (Mylanta) 30 ml Q4HP PRN PO HEARTBURN/INDIGESTION 01/12/21 12:15 Home Med (Home Med List Complete!) ASDIRECTED XX 01/12/21 12:30 01/12/21 12:30 DC Hydroxyzine HCl (Atarax) 50 mg Q6HP PRN PO ANXIETY 01/13/21 10:50 01/19/21 21:07 Magnesium Hydroxide (Milk Of Magnesia) 30 ml DAILYPRN PRN PO CONSTIPATION 01/12/21 12:15 01/18/21 19:40 Nicotine (Nicoderm Cq 21mg) 1 patch DAILYPRN PRN TD NICOTINE WITHDRAWAL 01/13/21 08:35 01/20/21 08:19 Non-Formulary Medication ( See Comment Field Below ) SEE COMMENTS SECTION 1T@10 XX 01/22/21 10:00 01/20/21 09:38 DC Non-Formulary Medication ( See Comment Field Below ) SEE LABEL COMMENTS DAILY XX 01/20/21 09:00 Olanzapine (ZyPREXA ZYDIS) 10 mg Q4HP PRN PO AGITATION 01/12/21 12:35 01/14/21 23:07 Paliperidone (Invega) 3 mg QHS PO 01/13/21 21:00 01/14/21 12:42 DC 01/13/21 20:05 Paliperidone (Invega) 6 mg DAILY PO 01/14/21 09:00 01/18/21 12:53 DC 01/18/21 08:10 Paliperidone (Invega) 9 mg DAILY PO 01/19/21 09:00 01/20/21 08:19 Trazodone HCl (Desyrel) 50 mg QHSP PRN PO INSOMNIA 01/12/21 12:15 01/17/21 08:47 DC 01/16/21 21:31 Trazodone HCl (Desyrel) 100 mg QHSP PRN PO INSOMNIA 01/17/21 08:50 01/19/21 21:07 Allergies Coded Allergies: No Known Drug Allergies (Verified Allergy, Unknown, 09/21/19) ELVA HARTMAN NP Jan 20, 2021 10:14
[2021-01-20 18:27] VITALS: BP 127/70
--- NOTE | 2021-01-20 19:25 | MHIPNPDOC ---
[facility] Progress Note Progress Note DATE OF SERVICE: 01/20/21 Saw patient prior to signing 2 PC paperwork, as 1 of 2 physicians. During interview she was staring at the corner of the room, looking at something as if it was on the floor, she appeared internally preoccupied , disorganized and psychotic, with tangential thought process. Seem to have some insight into her illness, understanding her psychotic diagnosis. Requires continued treatment for stabilization of symptoms, as she poses a risk for self-care and safety. Vital Signs Vital Signs Date Time Temp Pulse Resp B/P (MAP) Pulse Ox O2 Delivery O2 Flow Rate FiO2 01/20/21 18:27 98.2 93 18 127/70 (89) 01/20/21 06:56 99 Room Air Current Medications Current Medications Medications (Trade) Dose Ordered Sig/Justin Route PRN Reason Start Time Stop Time Status Last Admin Dose Admin Acetaminophen (Tylenol Tab) 650 mg Q6HP PRN PO HEADACHE or MILD DISCOMFORT 01/12/21 12:15 Al Hydrox/Mg Hydrox/Simethicone (Mylanta) 30 ml Q4HP PRN PO HEARTBURN/INDIGESTION 01/12/21 12:15 Home Med (Home Med List Complete!) ASDIRECTED XX 01/12/21 12:30 01/12/21 12:30 DC Hydroxyzine HCl (Atarax) 50 mg Q6HP PRN PO ANXIETY 01/13/21 10:50 01/19/21 21:07 Magnesium Hydroxide (Milk Of Magnesia) 30 ml DAILYPRN PRN PO CONSTIPATION 01/12/21 12:15 01/18/21 19:40 Nicotine (Nicoderm Cq 21mg) 1 patch DAILYPRN PRN TD NICOTINE WITHDRAWAL 01/13/21 08:35 01/20/21 08:19 Non-Formulary Medication ( See Comment Field Below ) SEE COMMENTS SECTION 1T@10 XX 01/22/21 10:00 01/20/21 09:38 DC Non-Formulary Medication ( See Comment Field Below ) SEE LABEL COMMENTS DAILY XX 01/20/21 09:00 01/20/21 13:21 DC Olanzapine (ZyPREXA ZYDIS) 10 mg Q4HP PRN PO AGITATION 01/12/21 12:35 01/14/21 23:07 Paliperidone (Invega) 3 mg QHS PO 01/13/21 21:00 01/14/21 12:42 DC 01/13/21 20:05 Paliperidone (Invega) 6 mg DAILY PO 01/14/21 09:00 01/18/21 12:53 DC 01/18/21 08:10 Paliperidone (Invega) 9 mg DAILY PO 01/19/21 09:00 01/20/21 08:19 Trazodone HCl (Desyrel) 50 mg QHSP PRN PO INSOMNIA 01/12/21 12:15 01/17/21 08:47 DC 01/16/21 21:31 Trazodone HCl (Desyrel) 100 mg QHSP PRN PO INSOMNIA 01/17/21 08:50 01/19/21 21:07 Allergies Coded Allergies: No Known Drug Allergies (Verified Allergy, Unknown, 09/21/19) DOROTA AGUILA MD Jan 20, 2021 19:25
[2021-01-20] MEDS: hydrOXYzine 50 MG TAB PO PRN (20:27)
[2021-01-20] MEDS: traZODone 100 MG TAB PO PRN (20:28)
[2021-01-21 06:56] VITALS: BP 148/98
[2021-01-21] MEDS: PALIPERIDONE 3 MG ER TAB (INVEGA) PO SCH (08:14)
[2021-01-21] MEDS: NICOTINE 21MG/24HR 1 EA TRANSDERMAL TD PRN (08:15)
[2021-01-21] MEDS ORDERED: PALIPERIDONE PALMITATE 156MG/1ML INJ(INVEGA)(FREE PSY INPT ONLY) IM ONE ×2 (09:00)
--- NOTE | 2021-01-21 10:57 | MHIPNPDOC ---
[facility] Progress Note Progress Note DATE OF SERVICE: 01/21/21 HISTORY: Patient is a 35-year-old female who came to the ER after experiencing overwhelming anxiety. She was discharged from [facility] unit in November but denied ever following up with outpatient mental health services and take her medications that she was prescribed while inpatient. She also came because she wanted to get back on treatment. During her stay she has presented with bizarre behavior, erratic thoughts, reported auditory hallucinations. VITAL SIGNS: See below. NEW TEST RESULTS: . CURRENT MEDICATIONS: See below. MENTAL STATUS EXAMINATION: Patient is a 35-year old female, who presented to the ER with overlying anxiety and the desire to seek treatment for schizophrenia. Speech: Is normal but minimal responses given when questioned. Language skills are intact. Thought processes including: Linear today. Thought content: Denies depression or anxiety. Abstract reasoning, and computation: Poor. Description of associations: Denies currently experiencing auditory hallucinations. Description of abnormal or psychotic thoughts: Denies but internally preoccupied. Judgment: Fair. Insight: Fair (recognizes she needs treatment. Orientation: Alert and oriented to person, place, time, and situation. Recent and remote memory: Intact. Attention span and concentration: Good. Language: Appropriate. Fund of knowledge: Average. Mood: Currently euthymic. Affect: Reactive. DIAGNOSES: 1. Schizophrenia. 2. Nicotine use disorder. 3. Unspecified anxiety disorder. ASSESSMENT: Patient is a 35-year-old female who was admitted to [facility] due to overwhelming anxiety and poor compliance with schizophrenia management. She has desired treatment and agrees to a plan which involves discharging her to as [facility] and then figuring out housing through [facility]. She has been on Invega 9 mg and will be transitioning to the Invega sustenna injection (156 mg) today. MANAGEMENT PLAN: Begin Invega sustenna injection. Continue medications and supportive therapy and discharged in stable to [facility]. TIME SPENT: 25 minutes. Vital Signs Vital Signs Date Time Temp Pulse Resp B/P (MAP) Pulse Ox O2 Delivery O2 Flow Rate FiO2 01/21/21 06:56 97.5 73 18 148/98 (115) 97 Room Air Current Medications Current Medications Medications (Trade) Dose Ordered Sig/Justin Route PRN Reason Start Time Stop Time Status Last Admin Dose Admin Acetaminophen (Tylenol Tab) 650 mg Q6HP PRN PO HEADACHE or MILD DISCOMFORT 01/12/21 12:15 Al Hydrox/Mg Hydrox/Simethicone (Mylanta) 30 ml Q4HP PRN PO HEARTBURN/INDIGESTION 01/12/21 12:15 Home Med (Home Med List Complete!) ASDIRECTED XX 01/12/21 12:30 01/12/21 12:30 DC Hydroxyzine HCl (Atarax) 50 mg Q6HP PRN PO ANXIETY 01/13/21 10:50 01/20/21 20:27 Magnesium Hydroxide (Milk Of Magnesia) 30 ml DAILYPRN PRN PO CONSTIPATION 01/12/21 12:15 01/18/21 19:40 Nicotine (Nicoderm Cq 21mg) 1 patch DAILYPRN PRN TD NICOTINE WITHDRAWAL 01/13/21 08:35 01/21/21 08:15 Non-Formulary Medication ( See Comment Field Below ) SEE COMMENTS SECTION 1T@10 XX 01/22/21 10:00 01/20/21 09:38 DC Non-Formulary Medication ( See Comment Field Below ) SEE LABEL COMMENTS DAILY XX 01/20/21 09:00 01/20/21 13:21 DC Olanzapine (ZyPREXA ZYDIS) 10 mg Q4HP PRN PO AGITATION 01/12/21 12:35 01/14/21 23:07 Paliperidone (Invega) 3 mg QHS PO 01/13/21 21:00 01/14/21 12:42 DC 01/13/21 20:05 Paliperidone (Invega) 6 mg DAILY PO 01/14/21 09:00 01/18/21 12:53 DC 01/18/21 08:10 Paliperidone (Invega) 9 mg DAILY PO 01/19/21 09:00 01/21/21 08:14 Trazodone HCl (Desyrel) 50 mg QHSP PRN PO INSOMNIA 01/12/21 12:15 01/17/21 08:47 DC 01/16/21 21:31 Trazodone HCl (Desyrel) 100 mg QHSP PRN PO INSOMNIA 01/17/21 08:50 01/20/21 20:28 Allergies Coded Allergies: No Known Drug Allergies (Verified Allergy, Unknown, 09/21/19) Gomez Howard DO Jan 21, 2021 10:57 ELVA HARTMAN NP Jan 21, 2021 11:10
[2021-01-21] MEDS: hydrOXYzine 50 MG TAB PO PRN ×2 (15:58→20:11)
[2021-01-21 16:07] VITALS: BP 127/67
--- NOTE | 2021-01-21 17:53 | MHIPNPDOC ---
[facility] Progress Note Progress Note DATE OF SERVICE: 01/21/21 HISTORY: 35-year-old female admitted to the unit for psychosis and lack of medication. This evaluation is being done to complete 2 PC paperwork. Patient appears relatively linear when talking to her, however she does make occasional odd comments regarding writing in certain patterns in order to make sense of the world, figuring out the relative crossword in the paper, and having a "superstitious sense" about how her life is going VITAL SIGNS: See below. NEW TEST RESULTS: None to report. CURRENT MEDICATIONS: See below. MENTAL STATUS EXAMINATION: Patient is a 35-year old female, who is appears stated age, dressed in hospital clothing, teacher's backwards and inside out, grooming appears fair no noticeable odor. Speech: Is clear, spontaneous. Language skills are intact. Thought processes including: Mostly linear, mild tangentiality as described. Thought content: Focused wanting to be healthy, and make sense of world. Abstract reasoning, and computation: Fairly concrete in her thinking, unable to provide abstract thought. Description of associations: Mostly linear, related to her thought content. Description of abnormal or psychotic thoughts: Endorses ongoing auditory hallucinations, denies any visual hallucinations, does not appear internally preoccupied Judgment: Fair. Insight: Fair. Orientation: X3. Recent and remote memory: Appears intact. Attention span and concentration: Intact. Language: Intact. Fund of knowledge: Appears adequate for age and situation. Mood: "I feel pretty good". Affect: Euthymic, blunted, congruent to stated mood. DIAGNOSES: 1. Schizophrenia. 2. Unspecified anxiety disorder. 3. Nicotine use disorder. ASSESSMENT: Patient appears to be improving based upon description in initial H&P, remains mildly disorganized and tangential, at this time I will complete 2 PC certification in support of her remaining hospitalized. Primary care team can make further adjustments to her medications as needed. TIME SPENT: 20 minutes. Vital Signs Vital Signs Date Time Temp Pulse Resp B/P (MAP) Pulse Ox O2 Delivery O2 Flow Rate FiO2 01/21/21 16:07 98.2 99 17 127/67 (87) 97 Room Air Current Medications Current Medications Medications (Trade) Dose Ordered Sig/Justin Route PRN Reason Start Time Stop Time Status Last Admin Dose Admin Acetaminophen (Tylenol Tab) 650 mg Q6HP PRN PO HEADACHE or MILD DISCOMFORT 01/12/21 12:15 Al Hydrox/Mg Hydrox/Simethicone (Mylanta) 30 ml Q4HP PRN PO HEARTBURN/INDIGESTION 01/12/21 12:15 Home Med (Home Med List Complete!) ASDIRECTED XX 01/12/21 12:30 01/12/21 12:30 DC Hydroxyzine HCl (Atarax) 50 mg Q6HP PRN PO ANXIETY 01/13/21 10:50 01/21/21 15:58 Magnesium Hydroxide (Milk Of Magnesia) 30 ml DAILYPRN PRN PO CONSTIPATION 01/12/21 12:15 01/18/21 19:40 Nicotine (Nicoderm Cq 21mg) 1 patch DAILYPRN PRN TD NICOTINE WITHDRAWAL 01/13/21 08:35 01/21/21 08:15 Non-Formulary Medication ( See Comment Field Below ) SEE COMMENTS SECTION 1T@10 XX 01/22/21 10:00 01/20/21 09:38 DC Non-Formulary Medication ( See Comment Field Below ) SEE LABEL COMMENTS DAILY XX 01/20/21 09:00 01/20/21 13:21 DC Olanzapine (ZyPREXA ZYDIS) 10 mg Q4HP PRN PO AGITATION 01/12/21 12:35 01/14/21 23:07 Paliperidone (Invega) 3 mg QHS PO 01/13/21 21:00 01/14/21 12:42 DC 01/13/21 20:05 Paliperidone (Invega) 6 mg DAILY PO 01/14/21 09:00 01/18/21 12:53 DC 01/18/21 08:10 Paliperidone (Invega) 9 mg DAILY PO 01/19/21 09:00 01/21/21 08:14 Trazodone HCl (Desyrel) 50 mg QHSP PRN PO INSOMNIA 01/12/21 12:15 01/17/21 08:47 DC 01/16/21 21:31 Trazodone HCl (Desyrel) 100 mg QHSP PRN PO INSOMNIA 01/17/21 08:50 01/20/21 20:28 Allergies Coded Allergies: No Known Drug Allergies (Verified Allergy, Unknown, 09/21/19) PHOENIX SILVEIRA MD Jan 21, 2021 17:53
[2021-01-21] MEDS: traZODone 100 MG TAB PO PRN (20:12)
[2021-01-22 06:29] VITALS: BP 129/58
[2021-01-22] MEDS: PALIPERIDONE 3 MG ER TAB (INVEGA) PO SCH (08:10)
[2021-01-22] MEDS ORDERED: PPD DOCUMENTATION ENTRY MISC XX SCH (10:00)
[2021-01-22] MEDS: NICOTINE 21MG/24HR 1 EA TRANSDERMAL TD PRN (13:07)
[2021-01-22] MEDS: hydrOXYzine 50 MG TAB PO PRN ×2 (13:28→19:33)
[2021-01-22] MEDS ORDERED: PPD DOCUMENTATION ENTRY MISC XX ONE (14:00)
[2021-01-22] MEDS: MOM 30ML SUSPENSION UDC PO PRN (15:33)
[2021-01-22 16:39] VITALS: BP 145/63
[2021-01-22] MEDS: traZODone 100 MG TAB PO PRN (19:33)
[2021-01-23 07:33] VITALS: BP 112/55
[2021-01-23] MEDS: PALIPERIDONE 3 MG ER TAB (INVEGA) PO SCH (08:01)
[2021-01-23] MEDS: NICOTINE 21MG/24HR 1 EA TRANSDERMAL TD PRN (13:48)
[2021-01-23 16:40] VITALS: BP 126/60
[2021-01-23] MEDS: hydrOXYzine 50 MG TAB PO PRN (20:28)
[2021-01-23] MEDS: traZODone 100 MG TAB PO PRN (20:28)
[2021-01-24 05:57] VITALS: BP 119/74
[2021-01-24] MEDS: PALIPERIDONE 3 MG ER TAB (INVEGA) PO SCH (09:17)
[2021-01-24] MEDS: NICOTINE 21MG/24HR 1 EA TRANSDERMAL TD PRN (12:57)
--- NOTE | 2021-01-24 17:18 | MHIPNPDOC ---
[facility] Progress Note Progress Note DATE OF SERVICE: 01/24/21 HISTORY: Patient is a 35-year-old female who came to the ER after experiencing overwhelming anxiety. She was discharged from [facility] unit in November but denied ever following up with outpatient mental health services and take her medications that she was prescribed while inpatient. She also came because she wanted to get back on treatment. During her stay she has presented with bizarre behavior, erratic thoughts, reported auditory hallucinations. VITAL SIGNS: See below. NEW TEST RESULTS: . CURRENT MEDICATIONS: See below. MENTAL STATUS EXAMINATION: Patient is a 35-year old female, who presented to the ER with overlying anxiety and the desire to seek treatment for schizophrenia. Speech: Is normal but minimal responses given when questioned. Language skills are intact. Thought processes including: Linear today. Thought content: Denies depression or anxiety. Abstract reasoning, and computation: Poor. Description of associations: Denies currently experiencing auditory hallucinations. Description of abnormal or psychotic thoughts: Denies but internally preoccupied. Judgment: Fair. Insight: Fair - recognizes she needs treatment. Orientation: Alert and oriented to person, place, time, and situation. Recent and remote memory: Intact. Attention span and concentration: Good. Language: Appropriate. Fund of knowledge: Average. Mood: Currently euthymic. Affect: Reactive. DIAGNOSES: 1. Schizophrenia. 2. Nicotine use disorder. 3. Unspecified anxiety disorder. ASSESSMENT: Patient appears to be improving in thought process, although her hygiene and grooming appears to be deteriorating. Patient is wearing her shirt inside out and backwards, had written the numbers 2 on her shirt, states that this shows her size and her hair is becoming more matted. When asked about a shower, she states that she has been showering but this is not evident. MANAGEMENT PLAN: Continue medications and supportive therapy and discharged to stable housing, if appropriate. At this writing patient is still insisting on being transferred to [facility] TIME SPENT: 25 minutes. Vital Signs Vital Signs Date Time Temp Pulse Resp B/P (MAP) Pulse Ox O2 Delivery O2 Flow Rate FiO2 01/24/21 05:57 97.5 83 17 119/74 (89) 01/23/21 16:40 100 Room Air Current Medications Current Medications Medications (Trade) Dose Ordered Sig/Justin Route PRN Reason Start Time Stop Time Status Last Admin Dose Admin Acetaminophen (Tylenol Tab) 650 mg Q6HP PRN PO HEADACHE or MILD DISCOMFORT 8/11/21 12:15 Al Hydrox/Mg Hydrox/Simethicone (Mylanta) 30 ml Q4HP PRN PO HEARTBURN/INDIGESTION 01/12/21 12:15 Home Med (Home Med List Complete!) ASDIRECTED XX 01/12/21 12:30 01/12/21 12:30 DC Hydroxyzine HCl (Atarax) 50 mg Q6HP PRN PO ANXIETY 01/13/21 10:50 01/23/21 20:28 Magnesium Hydroxide (Milk Of Magnesia) 30 ml DAILYPRN PRN PO CONSTIPATION 01/12/21 12:15 01/22/21 15:33 Nicotine (Nicoderm Cq 21mg) 1 patch DAILYPRN PRN TD NICOTINE WITHDRAWAL 01/13/21 08:35 01/24/21 12:57 Non-Formulary Medication ( See Comment Field Below ) SEE COMMENTS SECTION 1T@10 XX 01/22/21 10:00 01/20/21 09:38 DC Non-Formulary Medication ( See Comment Field Below ) SEE LABEL COMMENTS DAILY XX 01/20/21 09:00 01/20/21 13:21 DC Olanzapine (ZyPREXA ZYDIS) 10 mg Q4HP PRN PO AGITATION 01/12/21 12:35 01/14/21 23:07 Paliperidone (Invega) 3 mg QHS PO 01/13/21 21:00 01/14/21 12:42 DC 01/13/21 20:05 Paliperidone (Invega) 6 mg DAILY PO 01/14/21 09:00 01/18/21 12:53 DC 01/18/21 08:10 Paliperidone (Invega) 9 mg DAILY PO 01/19/21 09:00 01/24/21 09:17 Trazodone HCl (Desyrel) 50 mg QHSP PRN PO INSOMNIA 01/12/21 12:15 01/17/21 08:47 DC 01/16/21 21:31 Trazodone HCl (Desyrel) 100 mg QHSP PRN PO INSOMNIA 01/17/21 08:50 01/23/21 20:28 Allergies Coded Allergies: No Known Drug Allergies (Verified Allergy, Unknown, 09/21/19) ELVA HARTMAN NP Jan 24, 2021 17:18
[2021-01-24] MEDS: hydrOXYzine 50 MG TAB PO PRN (20:53)
[2021-01-24] MEDS: traZODone 100 MG TAB PO PRN (20:53)
[2021-01-25 06:29] VITALS: BP 99/58
[2021-01-25] MEDS: PALIPERIDONE 3 MG ER TAB (INVEGA) PO SCH (08:30)
[2021-01-25] MEDS: NICOTINE 21MG/24HR 1 EA TRANSDERMAL TD PRN (08:30)
--- NOTE | 2021-01-25 12:53 | MHIPNPDOC ---
[facility], [place] Progress Note Progress Note DATE OF SERVICE: 01/25/21 HISTORY: Patient is a 35-year-old female who came to the ER after experiencing overwhelming anxiety. She was discharged from [facility] unit in November but denied ever following up with outpatient mental health services and take her medications that she was prescribed while inpatient. She also came because she wanted to get back on treatment. VITAL SIGNS: See below. NEW TEST RESULTS: . CURRENT MEDICATIONS: See below. MENTAL STATUS EXAMINATION: Patient is a 35-year old female, who presented to the ER with overlying anxiety and the desire to seek treatment for schizophrenia. Speech: Is normal but minimal responses given when questioned. Language skills are intact. Thought processes including: Linear today. Thought content: Denies depression or anxiety. Abstract reasoning, and computation: Poor. Description of associations: Denies currently experiencing auditory hallucinations. Description of abnormal or psychotic thoughts: Denies but internally preoccupied. Judgment: Fair. Insight: Fair Orientation: Alert and oriented to person, place, time, and situation. Recent and remote memory: Intact. Attention span and concentration: Good. Language: Appropriate. Fund of knowledge: Average. Mood: Currently euthymic. Affect: Reactive. DIAGNOSES: 1. Schizophrenia. 2. Nicotine use disorder. 3. Unspecified anxiety disorder. ASSESSMENT: Patient's thought process is improving, although she continues to have poor hygiene and grooming, and hair is more matted. Discussed with her that she is improving and that she may not be able to be a candidate for transferring to [facility] as she is more stable than when she had initially requested the transfer. Patient is in agreement that she is improving. Discussed with her possible discharge when she is baseline. Patient is in agreement. Patient continues to be isolative and mildly withdrawn, not social with peers but visible on the unit. At this time, continued hospitalization due to impaired insight and judgment. MANAGEMENT PLAN: Continue medications and supportive therapy and discharged to stable housing, if appropriate. D/C transfer to [facility]. Patient agreeable to discharge next week. TIME SPENT: 25 minutes. Vital Signs Vital Signs Date Time Temp Pulse Resp B/P (MAP) Pulse Ox O2 Delivery O2 Flow Rate FiO2 01/25/21 06:29 96.6 83 16 99/58 (72) 95 Room Air Current Medications Current Medications Medications (Trade) Dose Ordered Sig/Justin Route PRN Reason Start Time Stop Time Status Last Admin Dose Admin Acetaminophen (Tylenol Tab) 650 mg Q6HP PRN PO HEADACHE or MILD DISCOMFORT 01/12/21 12:15 Al Hydrox/Mg Hydrox/Simethicone (Mylanta) 30 ml Q4HP PRN PO HEARTBURN/INDIGESTION 01/12/21 12:15 Home Med (Home Med List Complete!) ASDIRECTED XX 01/12/21 12:30 01/12/21 12:30 DC Hydroxyzine HCl (Atarax) 50 mg Q6HP PRN PO ANXIETY 01/13/21 10:50 01/24/21 20:53 Magnesium Hydroxide (Milk Of Magnesia) 30 ml DAILYPRN PRN PO CONSTIPATION 01/12/21 12:15 01/22/21 15:33 Nicotine (Nicoderm Cq 21mg) 1 patch DAILYPRN PRN TD NICOTINE WITHDRAWAL 01/13/21 08:35 01/25/21 08:30 Non-Formulary Medication ( See Comment Field Below ) SEE COMMENTS SECTION 1T@10 XX 01/22/21 10:00 01/20/21 09:38 DC Non-Formulary Medication ( See Comment Field Below ) SEE LABEL COMMENTS DAILY XX 01/20/21 09:00 01/20/21 13:21 DC Olanzapine (ZyPREXA ZYDIS) 10 mg Q4HP PRN PO AGITATION 01/12/21 12:35 01/14/21 23:07 Paliperidone (Invega) 3 mg QHS PO 01/13/21 21:00 01/14/21 12:42 DC 01/13/21 20:05 Paliperidone (Invega) 6 mg DAILY PO 01/14/21 09:00 01/18/21 12:53 DC 01/18/21 08:10 Paliperidone (Invega) 9 mg DAILY PO 01/19/21 09:00 01/25/21 08:30 Trazodone HCl (Desyrel) 50 mg QHSP PRN PO INSOMNIA 01/12/21 12:15 01/17/21 08:47 DC 01/16/21 21:31 Trazodone HCl (Desyrel) 100 mg QHSP PRN PO INSOMNIA 01/17/21 08:50 01/24/21 20:53 Allergies Coded Allergies: No Known Drug Allergies (Verified Allergy, Unknown, 09/21/19) ELVA HARTMAN IMPROVEMENT NURSE Jan 25, 2021 12:53
[2021-01-25 18:20] VITALS: BP 142/78
[2021-01-25] MEDS: hydrOXYzine 50 MG TAB PO PRN (20:47)
[2021-01-25] MEDS: traZODone 100 MG TAB PO PRN (20:47)
[2021-01-26 07:02] VITALS: BP 130/60
[2021-01-26] MEDS: PALIPERIDONE 3 MG ER TAB (INVEGA) PO SCH (08:26)
[2021-01-26] MEDS ORDERED: PALI1TAB2 PO (09:29)
[2021-01-26] MEDS ORDERED: NICO21PAT TD (09:29)
[2021-01-26] MEDS ORDERED: INVE156I IM (09:29)
--- NOTE | 2021-01-26 09:36 | MHDSPDOC ---
[facility] Discharge Summary Discharge Summary DATE OF ADMISSION: Jan 12, 2021 at 12:11 DATE OF DISCHARGE: January 26, 2021 at 0915 DISCHARGE DIAGNOSES: 1. Schizophrenia. 2. Nicotine use disorder. 3. Unspecified anxiety disorder. REASON FOR ADMISSION: Patient is a 35-year-old female who came to the ER after experiencing overwhelming anxiety and mild psychotic symptoms. She was discharged from [facility] unit in November but denied ever following up with outpatient mental health services and take her medications that she was prescribed while i npatient. She also came because she wanted to get back on treatment. VITAL SIGNS: See below. CONSULTANTS INVOLVED: See Medical H + P by Hospitalist TREATMENT AND PROGRESS ON THE UNIT: [facility] 9.39 legal status was afforded the following treatment modalities: 1) Individual Therapy 2) Group Therapy 3) Medication Management 4) Milieu Therapy 5) Safe Environment HOSPITAL COURSE: [facility] 9.39 legal status. She requested medications, reporting that she had not been compliant after her discharge. She was mildly disorganized and tangential and had one isolated verbal outburst during her admission. Patient's thought process has improved today and she is reporting that although her hair is matted that she is wanting dreadlocks. She brought up the subject of being discharge and reports that she had spoken to her mother. Mother has cleaned her apartment and patient is wanting to return to her apartment. Patient appears to be at her baseline according to staff. She has improved insight and judgment. Patient met criteria for discharge today by the treatment team. Pt found medications beneficial and tolerated them well. Mood, anxiety, and intrusive thoughts improved with treatment. Pt attended groups daily during stay. Pts symptoms improved with treatment. On day of discharge pt. denied depression, anxiety, insomnia, SI/HI, hallucinations, delusions. Pt was discharged home with follow- up at [facility]. Pt felt safe for discharge. DISCHARGE ASSESSMENT: In today's interview, patient is alert and oriented, pt.s dress is appropriate. Hygiene and grooming is well-kempt. Smiles on approach and is pleasant and engaged in the interview. Denies depression and anxiety. Denies suicidal and homicidal ideation, planning or intent. Denies and is not observed with vianney, psychotic symptoms of delusions, bizarre thinking, obsessions, paranoia, ruminations illogical thoughts, flight of ideas or having poor insight and judgement. Reinforced with patient need to abstain from alcohol and drugs. At discharge patient has normal mentation, declines further hospitalization on a voluntary status and meets criteria for discharge today. Patient encouraged to return to hospital if symptoms worsen or change and encouraged to call unit if he/she/they needs to speak to provider for questions regarding medications or care. MENTAL STATUS EXAMINATION ON DISCHARGE: Patient is a 35-year-old female who came to the ER after experiencing overwhelming anxiety and mild psychotic symptoms. She had not followed up after her discharge in November and wanted to restart her medications Speech: Is fluid, spontaneous, normal rate, tone and volume Language skills are intact Thought processes including: linear and goal oriented Thought content: denies depression and anxiety. Denies suicidal/homicidal ideat ion, planning or intent. Abstract reasoning, and computation: fair Description of associations: denies, none observed Description of abnormal or psychotic thoughts: denies, none observed. Judgment: fair Insight: fair Orientation: alert and oriented to person, place, time and situation Recent and remote memory: intact Attention span and concentration: good Language: expansive Fund of knowledge: average Mood: Euthymic Mood Affect: reactive Suicide Risk Assessment: 1) Does the patient wish to be ? No 2) Since your admission, have you had any actual thought of killing yourself? No 3) Since your admission, have you been thinking about how you might do this? No 4) Since your admission, have you had these thoughts and had some intention of acting on them? No 5) Since your admission, have you started to work out or worked out the details of how to kill yourself? No 5A) Do you intent to carry out this plan? No and NA 6) Have you ever done anything, started anything, or prepared to do anything with any intent to ? No 6A) How long since your admission did you do any of these? NA MEDICATIONS ON DISCHARGE: See Medication Reconciliation PLAN/FOLLOWUP ARRANGEMENTS: Patient is returning home and is being seen at [facility] The amount of time spent in the coordination of care for this patient was approximately 25 minutes. ETOH/Disorder Med Rx ETOH/DRUG DISORDER RX: N/A Vital Signs/I&Os Vital Signs Date Time Temp Pulse Resp B/P (MAP) Pulse Ox O2 Delivery O2 Flow Rate FiO2 01/26/21 07:02 97.4 82 12 130/60 (83) 97 Room Air Medications Scheduled Paliperidone (Paliperidone ER) 3 Mg Tab.er.24, 9 MG PO DAILY for Psychosis, #7 Paliperidone Palmitate (Invega Sustenna) 156 Mg/1 Ml Syringe, 156 MG IM QMONTH for Psychosis, #1 Next Dose due 2020 Scheduled PRN Nicotine (Nicotine Patch) 21 Mg Patch.td24, 1 PATCH TD DAILYPRN PRN for NICOTINE WITHDRAWAL, #7 Allergies Coded Allergies: No Known Drug Allergies (Verified Allergy, Unknown, 09/21/19) ELVA HARTMAN DATA CAPTURE CLERK Jan 26, 2021 09:19
== END 2021-01-26 11:45 | disposition home or self-care (01) | DRG 885 ==
LOC: M ED 20:10 → M ED INP 01-12 12:11 → M PSY 01-12 16:08
PROVIDERS: ADMIT Psychiatry & Neurology Psychiatry; ATTEND Psychiatry & Neurology Psychiatry
DX: F20.9 Schizophrenia, unspecified (principal); F17.200 Nicotine dependence, unspecified, uncomplicated; F41.9 Anxiety disorder, unspecified; Z91.14 Patient's other noncompliance with medication regimen

== ENCOUNTER 2021-06-08 05:58 | Inpatient (IN) | payer MEDICARE ==
[~2021-06-08] VITALS: Ht 157.5 cm; Wt 83.1 kg
[~2021-06-08 05:58] MED LIST changes: +INVE156I IM; +PALI1TAB2 PO
[2021-06-08] MEDS ORDERED: NICOTINE 21MG/24HR 1 EA TRANSDERMAL TD ONE (07:00)
[2021-06-08 07:24] LABS: HEMATOCRIT 40.1 % (36.0-47.0); HEMOGLOBIN 13.4 g/dl (12.0-15.5); MEAN CORPUSCULAR HEMOGLOBIN 31.7 pg (27.0-33.0); MEAN CORPUSCULAR HGB CONC 33.4 g/dl (32.0-36.5); MEAN CORPUSCULAR VOLUME 94.8 fl (80.0-96.0); PLATELET COUNT, AUTOMATED 414 10^3/uL (150-450); RED BLOOD COUNT 4.23 10^6/uL (4.00-5.40); WHITE BLOOD COUNT 15.1 10^3/uL (4.0-10.0)
[2021-06-08 07:46] LABS: AMPHETAMINES LEVEL URINE NEGATIVE (NEGATIVE); BARBITURATES URINE NEGATIVE (NEGATIVE); BENZODIAZEPINES URINE NEGATIVE (NEGATIVE); CANNABINOIDS URINE NEGATIVE (NEGATIVE); COCAINE METABOLITE URINE NEGATIVE (NEGATIVE); METHADONE URINE NEGATIVE (NEGATIVE); OPIATES URINE NEGATIVE (NEGATIVE); PHENCYCLIDINE URINE NEGATIVE (NEGATIVE)
[2021-06-08 07:47] LABS: HCG, SERUM QUALITATIVE NEGATIVE (NEGATIVE)
[2021-06-08 08:03] LABS: ACETAMINOPHEN LEVEL < 2.0 UG/ML (10.0-30.0); ALT/SGPT 27 U/L (12-78); BILIRUBIN,DIRECT < 0.1 MG/DL (0.0-0.2); BILIRUBIN,TOTAL 0.3 MG/DL (0.2-1.0); BLOOD UREA NITROGEN 7 MG/DL (7-18); CALCIUM LEVEL 8.8 MG/DL (8.5-10.1); CARBON DIOXIDE LEVEL 25 MEQ/L (21-32); CHLORIDE LEVEL 110 MEQ/L (98-107); CREATININE FOR GFR 0.87 MG/DL (0.55-1.30); ETHYL ALCOHOL (ETHANOL) < 0.003 % (0.000-0.010); GLOMERULAR FILTRATION RATE > 60.0 (>60); GLUCOSE, FASTING 107 MG/DL (70-100); POTASSIUM SERUM 3.9 MEQ/L (3.5-5.1); SALICYLATE LEVEL 4.8 MG/DL (5.0-30.0); SODIUM LEVEL 141 MEQ/L (136-145); TOTAL PROTEIN 7.2 GM/DL (6.4-8.2)
[2021-06-08 09:27] LABS: RSV AMPLIFICATION NEGATIVE (NEGATIVE)
[2021-06-08] MEDS ORDERED: PALI1TAB3 PO (11:35)
[2021-06-08] MEDS ORDERED: IBUP200T46 PO (11:35)
[2021-06-08] MEDS ORDERED: INVE234I IM (11:35)
[2021-06-08] MEDS ORDERED: HOME MED LIST COMPLETE! XX SCH (11:40)
[2021-06-08] MEDS ORDERED: MAALOX 30 ML SUSP *UDC PO PRN (15:15)
[2021-06-08] MEDS ORDERED: IBUPROFEN 400MG TAB PO PRN (15:15)
[2021-06-08] MEDS ORDERED: MOM 30ML SUSPENSION UDC PO PRN (15:15)
[2021-06-08 16:31] VITALS: BP 127/58
[2021-06-08] MEDS: PALIPERIDONE 6 MG ER TAB (INVEGA) PO SCH (20:28)
[2021-06-08] MEDS: OLANZapine ORAL DISINTEGRATING TAB 5MG PO PRN (20:58)
[2021-06-09 06:53] VITALS: BP 121/68
[2021-06-09] MEDS: PALIPERIDONE 6 MG ER TAB (INVEGA) PO SCH ×2 (08:19→20:00)
[2021-06-09] MEDS: NICOTINE 21MG/24HR 1 EA TRANSDERMAL TD SCH (09:57)
[2021-06-09 11:06] LABS: APPEARANCE, URINE CLEAR (CLEAR); BACTERIA, URINE AUTO NEGATIVE (NEGATIVE); BILIRUBIN, URINE AUTO NEGATIVE (NEGATIVE); BLOOD, URINE BLOOD 2+ (NEGATIVE); COLOR, URINE STRAW (YELLOW); GLUCOSE, URINE (UA) AUTO NEGATIVE (NEGATIVE); KETONE, URINE AUTO NEGATIVE (NEGATIVE); LEUKOCYTE ESTERASE, URINE AUTO NEGATIVE (NEGATIVE); MUCUS, URINE SMALL (NEGATIVE); NITRITE, URINE AUTO NEGATIVE (NEGATIVE); PROTEIN, URINE AUTO NEGATIVE (NEGATIVE); RBC, URINE AUTO 8 /HPF (0-3); SPECIFIC GRAVITY URINE AUTO 1.004 (1.002-1.035); SQUAMOUS EPITHELIAL CELL UR AU 0 /HPF (0-6); UROBILINOGEN, URINE AUTO 0.2 mg/dL (0.0-2.0); WBC, URINE AUTO 3 /HPF (0-3)
[2021-06-09] MEDS: SERTRALINE HCL 25 MG TABLET PO SCH (11:41)
[2021-06-09 18:11] VITALS: BP 138/79
[2021-06-09] MEDS: QUEtiapine FUMARATE 100 MG TAB PO SCH (20:00)
[2021-06-09] MEDS ORDERED: MIRALAX *UNIT DOSE* 17GM PACKET PO PRN (20:45)
[2021-06-09] MEDS: DOCUSATE SODIUM 100MG CAPSULE PO SCH (21:50)
[2021-06-10 06:47] VITALS: BP 140/79
[2021-06-10] MEDS: NICOTINE 21MG/24HR 1 EA TRANSDERMAL TD SCH (08:14)
[2021-06-10] MEDS: PALIPERIDONE 6 MG ER TAB (INVEGA) PO SCH ×2 (08:14→20:14)
[2021-06-10] MEDS: DOCUSATE SODIUM 100MG CAPSULE PO SCH ×2 (08:14→20:14)
[2021-06-10] MEDS: SERTRALINE HCL 25 MG TABLET PO SCH (08:14)
[2021-06-10 08:32] LABS: CHOLESTEROL RISK RATIO 3.904 (<5)
[2021-06-10 09:19] LABS: HEMOGLOBIN A1c 5.2 %
[2021-06-10 16:51] VITALS: BP 139/71
[2021-06-10] MEDS: QUEtiapine FUMARATE 100 MG TAB PO SCH (20:14)
[2021-06-11 06:50] VITALS: BP 112/56
[2021-06-11] MEDS: SERTRALINE HCL 25 MG TABLET PO SCH (08:33)
[2021-06-11] MEDS: PALIPERIDONE 6 MG ER TAB (INVEGA) PO SCH ×2 (08:33→21:06)
[2021-06-11] MEDS: DOCUSATE SODIUM 100MG CAPSULE PO SCH ×2 (08:33→21:06)
[2021-06-11] MEDS: NICOTINE 21MG/24HR 1 EA TRANSDERMAL TD SCH (08:34)
[2021-06-11] MEDS: OLANZapine ORAL DISINTEGRATING TAB 5MG PO PRN (16:05)
[2021-06-11 16:47] VITALS: BP 139/78
[2021-06-11] MEDS: QUEtiapine FUMARATE 200 MG TAB PO SCH (21:06)
[2021-06-12 06:23] VITALS: BP 122/76
[2021-06-12] MEDS: NICOTINE 21MG/24HR 1 EA TRANSDERMAL TD SCH (08:39)
[2021-06-12] MEDS: DOCUSATE SODIUM 100MG CAPSULE PO SCH ×2 (08:39→20:36)
[2021-06-12] MEDS: PALIPERIDONE 6 MG ER TAB (INVEGA) PO SCH ×2 (08:39→20:36)
[2021-06-12] MEDS: SERTRALINE HCL 50 MG TAB PO SCH (08:39)
[2021-06-12 16:47] VITALS: BP 128/72
[2021-06-12] MEDS: QUEtiapine FUMARATE 200 MG TAB PO SCH (20:36)
[2021-06-13 06:57] VITALS: BP 135/77
[2021-06-13] MEDS: SERTRALINE HCL 50 MG TAB PO SCH (08:09)
[2021-06-13] MEDS: DOCUSATE SODIUM 100MG CAPSULE PO SCH ×2 (08:09→20:37)
[2021-06-13] MEDS: PALIPERIDONE 6 MG ER TAB (INVEGA) PO SCH ×2 (08:09→20:37)
[2021-06-13] MEDS: NICOTINE 21MG/24HR 1 EA TRANSDERMAL TD SCH (08:10)
[2021-06-13] MEDS: OLANZapine ORAL DISINTEGRATING TAB 5MG PO PRN (13:58)
[2021-06-13 18:00] VITALS: BP 149/80
[2021-06-13] MEDS: QUEtiapine FUMARATE 200 MG TAB PO SCH (20:37)
[2021-06-14 06:53] VITALS: BP 126/77
[2021-06-14] MEDS: DOCUSATE SODIUM 100MG CAPSULE PO SCH ×2 (08:42→20:40)
[2021-06-14] MEDS: PALIPERIDONE 6 MG ER TAB (INVEGA) PO SCH ×2 (08:42→20:40)
[2021-06-14] MEDS: SERTRALINE HCL 50 MG TAB PO SCH (08:42)
[2021-06-14] MEDS ORDERED: PALIPERIDONE PALMITATE 234MG/1.5ML INJ (INVEGA)(FREE PSY INPT ONLY) IM SCH (09:00)
[2021-06-14] MEDS: NICOTINE 21MG/24HR 1 EA TRANSDERMAL TD SCH ×2 (09:00→19:16)
[2021-06-14 18:18] VITALS: BP 146/86
[2021-06-14] MEDS: OLANZapine ORAL DISINTEGRATING TAB 5MG PO PRN (20:40)
[2021-06-14] MEDS: QUEtiapine FUMARATE 200 MG TAB PO SCH (20:40)
[2021-06-14] MEDS: CLOTRIMAZOLE 1% TOPICAL CREAM 30GM TOP SCH (21:04)
[2021-06-15] MEDS: CLOTRIMAZOLE 1% TOPICAL CREAM 30GM TOP SCH (09:06)
[2021-06-15] MEDS: SERTRALINE HCL 50 MG TAB PO SCH (09:07)
[2021-06-15] MEDS: NICOTINE 21MG/24HR 1 EA TRANSDERMAL TD SCH (09:07)
[2021-06-15] MEDS: DOCUSATE SODIUM 100MG CAPSULE PO SCH (09:07)
[2021-06-15] MEDS: PALIPERIDONE 6 MG ER TAB (INVEGA) PO SCH (09:08)
[2021-06-15] MEDS ORDERED: PALI1TAB3 PO (09:49)
[2021-06-15] MEDS ORDERED: INVE234I IM (09:49)
[2021-06-15] MEDS ORDERED: QUET200T2 PO (09:49)
[2021-06-15] MEDS ORDERED: SERT50TA29 PO (09:49)
[2021-06-15] MEDS ORDERED: CLOTR1CR TOP (09:49)
[2021-06-15] MEDS ORDERED: NICO21PAT TD (09:49)
[2021-06-16] MEDS ORDERED: PALIPERIDONE PALMITATE 234MG/1.5ML INJ (INVEGA)(FREE PSY INPT ONLY) IM SCH (09:00)
== END 2021-06-15 11:58 | disposition home or self-care (01) | DRG 885 ==
LOC: M ED 05:58 → M ED INP 15:13 → M PSY 16:27
PROVIDERS: ADMIT Student in an Organized Health Care Education/Training Program; ATTEND Student in an Organized Health Care Education/Training Program
DX: F25.1 Schizoaffective disorder, depressive type (principal); R45.851 Suicidal ideations; F17.200 Nicotine dependence, unspecified, uncomplicated; F41.8 Other specified anxiety disorders; G47.00 Insomnia, unspecified; Z91.19 Patient's noncompliance with other medical treatment and regimen; Z79.899 Other long term (current) drug therapy; L40.8 Other psoriasis

== ENCOUNTER 2021-07-16 16:21 | Emergency (ER) | payer MEDICARE ==
[~2021-07-16] VITALS: Ht 157.5 cm; Wt 85.7 kg
[2021-07-16 16:21] VITALS: BP 187/82
[~2021-07-16 16:21] MED LIST changes: +CLOTR1CR TOP; +IBUP200T46 PO; +INVE234I IM; +PALI1TAB3 PO; +QUET200T2 PO; +SERT50TA29 PO; +TRAZ-252 PO
== END 2021-07-16 17:12 | disposition home or self-care (01) ==
LOC: M ED 16:21
DX: G47.00 Insomnia, unspecified (principal); E11.9 Type 2 diabetes mellitus without complications; F32.A Depression, unspecified; F20.9 Schizophrenia, unspecified; F17.200 Nicotine dependence, unspecified, uncomplicated

== ENCOUNTER 2021-08-16 18:59 | Emergency (ER) | payer MEDICARE ==
[~2021-08-16] VITALS: Ht 157.5 cm; Wt 84.5 kg
[2021-08-16 19:00] VITALS: BP 159/80
[2021-08-16 20:23] LABS: AMORPHOUS SEDIMENT SMALL (NEGATIVE); APPEARANCE, URINE CLOUDY (CLEAR); BACTERIA, URINE AUTO NEGATIVE (NEGATIVE); BILIRUBIN, URINE AUTO NEGATIVE (NEGATIVE); BLOOD, URINE BLOOD NEGATIVE (NEGATIVE); COLOR, URINE YELLOW (YELLOW); GLUCOSE, URINE (UA) AUTO NEGATIVE (NEGATIVE); KETONE, URINE AUTO NEGATIVE (NEGATIVE); LEUKOCYTE ESTERASE, URINE AUTO 1+ (NEGATIVE); NITRITE, URINE AUTO NEGATIVE (NEGATIVE); PROTEIN, URINE AUTO NEGATIVE (NEGATIVE); RBC, URINE AUTO 1 /HPF (0-3); SPECIFIC GRAVITY URINE AUTO 1.008 (1.002-1.035); SQUAMOUS EPITHELIAL CELL UR AU 1 /HPF (0-6); UROBILINOGEN, URINE AUTO 0.2 mg/dL (0.0-2.0); WBC, URINE AUTO 5 /HPF (0-3)
[2021-08-16 20:38] LABS: AMPHETAMINES LEVEL URINE NEGATIVE (NEGATIVE); BARBITURATES URINE NEGATIVE (NEGATIVE); BENZODIAZEPINES URINE NEGATIVE (NEGATIVE); CANNABINOIDS URINE NEGATIVE (NEGATIVE); COCAINE METABOLITE URINE NEGATIVE (NEGATIVE); METHADONE URINE NEGATIVE (NEGATIVE); OPIATES URINE NEGATIVE (NEGATIVE); PHENCYCLIDINE URINE NEGATIVE (NEGATIVE)
== END 2021-08-16 21:39 | disposition left against medical advice (07) ==
LOC: M ED 18:59
DX: Z53.21 Procedure and treatment not carried out due to patient leaving prior to being seen by health care provider (principal)

== ENCOUNTER 2021-08-20 13:02 | Emergency (ER) | payer MEDICARE ==
[~2021-08-20] VITALS: Ht 157.5 cm; Wt 84.5 kg
[2021-08-20 14:31] LABS: HEMATOCRIT 40.6 % (36.0-47.0); HEMOGLOBIN 13.6 g/dl (12.0-15.5); MEAN CORPUSCULAR HEMOGLOBIN 31.6 pg (27.0-33.0); MEAN CORPUSCULAR HGB CONC 33.5 g/dl (32.0-36.5); MEAN CORPUSCULAR VOLUME 94.4 fl (80.0-96.0); PLATELET COUNT, AUTOMATED 375 10^3/uL (150-450); WHITE BLOOD COUNT 9.9 10^3/uL (4.0-10.0)
[2021-08-20 14:55] LABS: AMPHETAMINES LEVEL URINE NEGATIVE (NEGATIVE); BARBITURATES URINE NEGATIVE (NEGATIVE); BENZODIAZEPINES URINE NEGATIVE (NEGATIVE); CANNABINOIDS URINE NEGATIVE (NEGATIVE); COCAINE METABOLITE URINE NEGATIVE (NEGATIVE); METHADONE URINE NEGATIVE (NEGATIVE); OPIATES URINE NEGATIVE (NEGATIVE); PHENCYCLIDINE URINE NEGATIVE (NEGATIVE)
[2021-08-20 14:59] LABS: HCG, SERUM QUALITATIVE NEGATIVE (NEGATIVE)
[2021-08-20 15:03] LABS: ACETAMINOPHEN LEVEL < 2.0 UG/ML (10.0-30.0); ALBUMIN 4.1 GM/DL (3.2-5.2); ALT/SGPT 24 U/L (12-78); BILIRUBIN,DIRECT < 0.1 MG/DL (0.0-0.2); BILIRUBIN,TOTAL 0.3 MG/DL (0.2-1.0); BLOOD UREA NITROGEN 8 MG/DL (7-18); CALCIUM LEVEL 9.1 MG/DL (8.5-10.1); CARBON DIOXIDE LEVEL 29 MEQ/L (21-32); CHLORIDE LEVEL 107 MEQ/L (98-107); CREATININE FOR GFR 0.65 MG/DL (0.55-1.30); ETHYL ALCOHOL (ETHANOL) < 0.003 % (0.000-0.010); GLOMERULAR FILTRATION RATE > 60.0 (>60); GLUCOSE, FASTING 79 MG/DL (70-100); SALICYLATE LEVEL 6.4 MG/DL (5.0-30.0); SODIUM LEVEL 142 MEQ/L (136-145); TOTAL PROTEIN 7.1 GM/DL (6.4-8.2)
[2021-08-20 16:26] VITALS: BP 126/76
== END 2021-08-20 16:28 | disposition home or self-care (01) ==
LOC: M ED 13:02
DX: F51.01 Primary insomnia (principal); F32.A Depression, unspecified; F41.8 Other specified anxiety disorders; F20.9 Schizophrenia, unspecified; Z87.891 Personal history of nicotine dependence

== ENCOUNTER 2021-08-27 15:03 | Emergency (ER) | payer MEDICARE ==
[~2021-08-27] VITALS: Ht 157.5 cm; Wt 84.9 kg
[2021-08-27 16:06] VITALS: BP 134/69
== END 2021-08-27 16:07 | disposition home or self-care (01) ==
LOC: M ED 15:03
DX: F43.23 Adjustment disorder with mixed anxiety and depressed mood (principal); J44.9 Chronic obstructive pulmonary disease, unspecified; D64.9 Anemia, unspecified; F20.9 Schizophrenia, unspecified; F10.10 Alcohol abuse, uncomplicated; Z79.899 Other long term (current) drug therapy

== ENCOUNTER 2021-09-11 16:09 | Emergency (ER) | payer MEDICARE ==
[~2021-09-11] VITALS: Ht 170.2 cm; Wt 83.5 kg
[2021-09-11 18:59] LABS: HEMATOCRIT 37.5 % (36.0-47.0); HEMOGLOBIN 12.8 g/dl (12.0-15.5); MEAN CORPUSCULAR HEMOGLOBIN 31.8 pg (27.0-33.0); MEAN CORPUSCULAR HGB CONC 34.1 g/dl (32.0-36.5); MEAN CORPUSCULAR VOLUME 93.3 fl (80.0-96.0); PLATELET COUNT, AUTOMATED 376 10^3/uL (150-450); RED BLOOD COUNT 4.02 10^6/uL (4.00-5.40)
[2021-09-11 19:23] LABS: HCG, SERUM QUALITATIVE NEGATIVE (NEGATIVE)
[2021-09-11 19:34] LABS: ACETAMINOPHEN LEVEL < 2.0 UG/ML (10.0-30.0); ALBUMIN 3.7 GM/DL (3.2-5.2); ALT/SGPT 29 U/L (12-78); BILIRUBIN,DIRECT < 0.1 MG/DL (0.0-0.2); BILIRUBIN,TOTAL 0.2 MG/DL (0.2-1.0); BLOOD UREA NITROGEN 10 MG/DL (7-18); CALCIUM LEVEL 8.7 MG/DL (8.5-10.1); CARBON DIOXIDE LEVEL 23 MEQ/L (21-32); CHLORIDE LEVEL 110 MEQ/L (98-107); CREATININE FOR GFR 0.56 MG/DL (0.55-1.30); ETHYL ALCOHOL (ETHANOL) < 0.003 % (0.000-0.010); GLOMERULAR FILTRATION RATE > 60.0 (>60); GLUCOSE, FASTING 86 MG/DL (70-100); POTASSIUM SERUM 4.2 MEQ/L (3.5-5.1); SALICYLATE LEVEL 5.3 MG/DL (5.0-30.0); SODIUM LEVEL 141 MEQ/L (136-145); TOTAL PROTEIN 6.7 GM/DL (6.4-8.2)
[2021-09-11 19:57] VITALS: BP 142/73
[2021-09-11 20:50] LABS: AMPHETAMINES LEVEL URINE NEGATIVE (NEGATIVE); BARBITURATES URINE NEGATIVE (NEGATIVE); BENZODIAZEPINES URINE NEGATIVE (NEGATIVE); CANNABINOIDS URINE NEGATIVE (NEGATIVE); COCAINE METABOLITE URINE NEGATIVE (NEGATIVE); METHADONE URINE NEGATIVE (NEGATIVE); OPIATES URINE NEGATIVE (NEGATIVE); PHENCYCLIDINE URINE NEGATIVE (NEGATIVE)
[2021-09-11 21:15] LABS: RSV AMPLIFICATION NEGATIVE (NEGATIVE)
[2021-09-11] MEDS ORDERED: TRAZ-252 PO (23:46)
[2021-09-11] MEDS ORDERED: INVE6TAB3 PO (23:46)
[2021-09-11] MEDS ORDERED: SERT50TA29 PO (23:47)
[2021-09-12] MEDS ORDERED: INVE234I IM (00:01)
[2021-09-12] MEDS ORDERED: HOME MED LIST COMPLETE! XX SCH (00:05)
== END 2021-09-12 01:00 | disposition home or self-care (01) ==
LOC: M ED 16:09
DX: F32.A Depression, unspecified (principal); F20.9 Schizophrenia, unspecified; E11.9 Type 2 diabetes mellitus without complications; J44.9 Chronic obstructive pulmonary disease, unspecified; F17.200 Nicotine dependence, unspecified, uncomplicated; Z79.899 Other long term (current) drug therapy

== ENCOUNTER 2021-09-30 11:37 | Emergency (ER) | payer MEDICARE ==
[~2021-09-30] VITALS: Ht 170.2 cm; Wt 82.5 kg
[~2021-09-30 11:37] MED LIST changes: +INVE6TAB3 PO
[2021-09-30 11:38] VITALS: BP 136/65
== END 2021-09-30 18:55 | disposition left against medical advice (07) ==
LOC: M ED 13:06
DX: Z53.21 Procedure and treatment not carried out due to patient leaving prior to being seen by health care provider (principal)

== ENCOUNTER 2021-10-23 18:33 | Emergency (ER) | payer MEDICARE ==
[~2021-10-23] VITALS: Ht 170.2 cm; Wt 84.5 kg
[2021-10-23 19:22] LABS: HEMATOCRIT 37.7 % (36.0-47.0); HEMOGLOBIN 12.7 g/dl (12.0-15.5); MEAN CORPUSCULAR HEMOGLOBIN 31.4 pg (27.0-33.0); MEAN CORPUSCULAR HGB CONC 33.7 g/dl (32.0-36.5); MEAN CORPUSCULAR VOLUME 93.3 fl (80.0-96.0); PLATELET COUNT, AUTOMATED 436 10^3/uL (150-450); RED BLOOD COUNT 4.04 10^6/uL (4.00-5.40); WHITE BLOOD COUNT 10.9 10^3/uL (4.0-10.0)
[2021-10-23 19:49] LABS: HCG, SERUM QUALITATIVE NEGATIVE (NEGATIVE)
[2021-10-23 19:51] LABS: AMPHETAMINES LEVEL URINE NEGATIVE (NEGATIVE); BARBITURATES URINE NEGATIVE (NEGATIVE); BENZODIAZEPINES URINE NEGATIVE (NEGATIVE); CANNABINOIDS URINE NEGATIVE (NEGATIVE); COCAINE METABOLITE URINE NEGATIVE (NEGATIVE); METHADONE URINE NEGATIVE (NEGATIVE); OPIATES URINE NEGATIVE (NEGATIVE); PHENCYCLIDINE URINE NEGATIVE (NEGATIVE); RSV AMPLIFICATION NEGATIVE (NEGATIVE)
[2021-10-23 19:57] LABS: ACETAMINOPHEN LEVEL < 2.0 UG/ML (10.0-30.0); ALBUMIN 3.7 GM/DL (3.2-5.2); ALT/SGPT 21 U/L (12-78); BILIRUBIN,DIRECT 0.2 MG/DL (0.0-0.2); BILIRUBIN,TOTAL 0.2 MG/DL (0.2-1.0); BLOOD UREA NITROGEN 10 MG/DL (7-18); CALCIUM LEVEL 9.3 MG/DL (8.5-10.1); CARBON DIOXIDE LEVEL 26 MEQ/L (21-32); CHLORIDE LEVEL 109 MEQ/L (98-107); CREATININE FOR GFR 0.57 MG/DL (0.55-1.30); ETHYL ALCOHOL (ETHANOL) < 0.003 % (0.000-0.010); GLOMERULAR FILTRATION RATE > 60.0 (>60); GLUCOSE, FASTING 81 MG/DL (70-100); POTASSIUM SERUM 4.3 MEQ/L (3.5-5.1); SALICYLATE LEVEL 6.2 MG/DL (5.0-30.0); SODIUM LEVEL 142 MEQ/L (136-145); TOTAL PROTEIN 7.1 GM/DL (6.4-8.2)
[2021-10-23] MEDS ORDERED: HOME MED LIST COMPLETE! XX SCH (23:15)
[2021-10-24 03:25] VITALS: BP 135/82
== END 2021-10-24 03:29 | disposition home or self-care (01) ==
LOC: M ED 18:33
DX: F43.21 Adjustment disorder with depressed mood (principal); R45.851 Suicidal ideations; F17.200 Nicotine dependence, unspecified, uncomplicated

== ENCOUNTER 2021-12-26 15:42 | Emergency (ER) | payer MEDICARE ==
[~2021-12-26] VITALS: Ht 170.2 cm; Wt 83.2 kg
[2021-12-26 16:21] VITALS: BP 142/75
[2021-12-26] MEDS ORDERED: NICOTINE 21MG/24HR 1 EA TRANSDERMAL TD ONE (18:15)
== END 2021-12-26 19:48 | disposition left against medical advice (07) ==
LOC: M ED 15:42
DX: F20.9 Schizophrenia, unspecified (principal); F32.A Depression, unspecified; F41.9 Anxiety disorder, unspecified; Z87.891 Personal history of nicotine dependence; Z79.899 Other long term (current) drug therapy; Z53.21 Procedure and treatment not carried out due to patient leaving prior to being seen by health care provider

== ENCOUNTER 2021-12-28 14:59 | Inpatient (IN) | payer MEDICARE ==
[~2021-12-28] VITALS: Ht 170.2 cm; Wt 83.6 kg
[2021-12-28 15:34] LABS: HEMATOCRIT 40.6 % (36.0-47.0); HEMOGLOBIN 13.4 g/dl (12.0-15.5); MEAN CORPUSCULAR HEMOGLOBIN 31.8 pg (27.0-33.0); MEAN CORPUSCULAR VOLUME 96.4 fl (80.0-96.0); PLATELET COUNT, AUTOMATED 430 10^3/uL (150-450); RED BLOOD COUNT 4.21 10^6/uL (4.00-5.40); WHITE BLOOD COUNT 12.7 10^3/uL (4.0-10.0)
[2021-12-28 16:11] LABS: AMPHETAMINES LEVEL URINE NEGATIVE (NEGATIVE); BARBITURATES URINE NEGATIVE (NEGATIVE); BENZODIAZEPINES URINE NEGATIVE (NEGATIVE); CANNABINOIDS URINE NEGATIVE (NEGATIVE); COCAINE METABOLITE URINE NEGATIVE (NEGATIVE); METHADONE URINE NEGATIVE (NEGATIVE); OPIATES URINE NEGATIVE (NEGATIVE); PHENCYCLIDINE URINE NEGATIVE (NEGATIVE); RSV AMPLIFICATION NEGATIVE (NEGATIVE)
[2021-12-28 16:12] LABS: ALT/SGPT 36 U/L (12-78); BLOOD UREA NITROGEN 6 MG/DL (7-18); CALCIUM LEVEL 9.4 MG/DL (8.5-10.1); CARBON DIOXIDE LEVEL 26 MEQ/L (21-32); CHLORIDE LEVEL 108 MEQ/L (98-107); CREATININE FOR GFR 0.62 MG/DL (0.55-1.30); GLOMERULAR FILTRATION RATE > 60.0 (>60); GLUCOSE, FASTING 89 MG/DL (70-100); POTASSIUM SERUM 3.8 MEQ/L (3.5-5.1); SODIUM LEVEL 142 MEQ/L (136-145)
[2021-12-28 16:13] LABS: ACETAMINOPHEN LEVEL < 2.0 UG/ML (10.0-30.0); ALBUMIN 4.2 GM/DL (3.2-5.2); BILIRUBIN,DIRECT < 0.1 MG/DL (0.0-0.2); BILIRUBIN,TOTAL 0.4 MG/DL (0.2-1.0); ETHYL ALCOHOL (ETHANOL) < 0.003 % (0.000-0.010); TOTAL PROTEIN 7.3 GM/DL (6.4-8.2)
[2021-12-28 16:27] LABS: HCG, SERUM QUALITATIVE NEGATIVE (NEGATIVE)
[2021-12-28] MEDS ORDERED: NICOTINE 21MG/24HR 1 EA TRANSDERMAL TD ONE (17:25)
[2021-12-28] MEDS ORDERED: HOME MED LIST COMPLETE! XX SCH (21:00)
[2021-12-29] MEDS ORDERED: SERTRALINE HCL 50 MG TAB PO SCH (09:00)
[2021-12-29] MEDS: PALIPERIDONE 6 MG ER TAB (INVEGA) PO SCH ×2 (09:13→21:22)
[2021-12-29] MEDS ORDERED: NICOTINE 21MG/24HR 1 EA TRANSDERMAL TD ONE (17:35)
[2021-12-30] MEDS ORDERED: MOM 30ML SUSPENSION UDC PO PRN (08:50)
[2021-12-30] MEDS ORDERED: MAALOX 30 ML SUSP *UDC PO PRN (08:50)
[2021-12-30] MEDS ORDERED: ACETAMINOPHEN TAB 650MG DOSE (2X325MG) PO PRN (08:50)
[2021-12-30] MEDS: SERTRALINE HCL 50 MG TAB PO SCH (09:32)
[2021-12-30] MEDS: PALIPERIDONE 6 MG ER TAB (INVEGA) PO SCH ×2 (10:23→20:36)
[2021-12-30 11:30] VITALS: BP 141/67
[2021-12-30] MEDS: NICOTINE 21MG/24HR 1 EA TRANSDERMAL TD SCH (14:20)
[2021-12-30 18:38] VITALS: BP 134/70
[2021-12-30] MEDS: traZODone 50 MG TAB PO PRN (20:35)
[2021-12-31 06:33] VITALS: BP 114/56
[2021-12-31] MEDS: PALIPERIDONE 6 MG ER TAB (INVEGA) PO SCH ×2 (08:02→20:19)
[2021-12-31] MEDS: SERTRALINE HCL 50 MG TAB PO SCH (08:02)
[2021-12-31] MEDS: NICOTINE 21MG/24HR 1 EA TRANSDERMAL TD SCH (08:03)
[2021-12-31 18:00] VITALS: BP 130/80
[2021-12-31] MEDS: traZODone 50 MG TAB PO PRN (20:48)
[2022-01-01 06:26] VITALS: BP 116/61
[2022-01-01] MEDS: NICOTINE 21MG/24HR 1 EA TRANSDERMAL TD SCH (08:12)
[2022-01-01] MEDS: PALIPERIDONE 6 MG ER TAB (INVEGA) PO SCH ×2 (08:12→20:07)
[2022-01-01] MEDS: SERTRALINE HCL 50 MG TAB PO SCH (08:12)
[2022-01-01 09:37] LABS: CHOLESTEROL RISK RATIO 5.937 (<5)
[2022-01-01] MEDS: OMEGA-3 1000MG CAPSULE PO SCH ×2 (12:30→20:07)
[2022-01-01 18:00] VITALS: BP 144/67
[2022-01-01] MEDS: traZODone 50 MG TAB PO PRN (20:08)
[2022-01-02 06:56] VITALS: BP 128/59
[2022-01-02] MEDS: OMEGA-3 1000MG CAPSULE PO SCH ×2 (08:43→20:17)
[2022-01-02] MEDS: SERTRALINE HCL 50 MG TAB PO SCH (08:43)
[2022-01-02] MEDS: PALIPERIDONE 6 MG ER TAB (INVEGA) PO SCH ×2 (08:43→20:17)
[2022-01-02] MEDS: NICOTINE 21MG/24HR 1 EA TRANSDERMAL TD SCH (08:44)
[2022-01-02 18:00] VITALS: BP 123/60
[2022-01-02] MEDS: traZODone 50 MG TAB PO PRN (20:17)
[2022-01-03 06:21] VITALS: BP 107/53
[2022-01-03] MEDS: PALIPERIDONE 6 MG ER TAB (INVEGA) PO SCH (08:09)
[2022-01-03] MEDS: NICOTINE 21MG/24HR 1 EA TRANSDERMAL TD SCH ×2 (08:09→09:00)
[2022-01-03] MEDS: OMEGA-3 1000MG CAPSULE PO SCH (08:09)
[2022-01-03] MEDS: SERTRALINE HCL 50 MG TAB PO SCH (08:09)
[2022-01-03] MEDS ORDERED: FISH1CAP26 PO (08:40)
[2022-01-03] MEDS ORDERED: TRAZ-252 PO (08:40)
[2022-01-03] MEDS ORDERED: TRAZ-257 PO (14:31)
== END 2022-01-03 12:02 | disposition home or self-care (01) | DRG 885 ==
LOC: M ED 14:59 → EDBD 14:59 → M ED INP 12-30 08:46 → M PSY 12-30 10:01
PROVIDERS: ADMIT Psychiatry & Neurology Psychiatry; ATTEND Psychiatry & Neurology Psychiatry
DX: F25.0 Schizoaffective disorder, bipolar type (principal); F10.10 Alcohol abuse, uncomplicated; Z91.14 Patient's other noncompliance with medication regimen; F41.9 Anxiety disorder, unspecified; F17.200 Nicotine dependence, unspecified, uncomplicated; D72.829 Elevated white blood cell count, unspecified; Z79.899 Other long term (current) drug therapy; G47.00 Insomnia, unspecified

== ENCOUNTER 2022-01-15 16:55 | Emergency (ER) | payer MEDICARE ==
[~2022-01-15] VITALS: Ht 170.2 cm; Wt 87.7 kg
[2022-01-15 16:55] VITALS: BP 131/72
[~2022-01-15 16:55] MED LIST changes: +FISH1CAP26 PO; +TRAZ-257 PO
== END 2022-01-15 17:52 | disposition left against medical advice (07) ==
LOC: M ED 16:55
DX: Z53.21 Procedure and treatment not carried out due to patient leaving prior to being seen by health care provider (principal)

== ENCOUNTER → 2022-05-01 | Outpatient (REF) | payer MEDICARE, MEDICAID ==
[2022-05-01 13:43] LABS: ALBUMIN 3.9 G/DL (3.2-5.2); CARBON DIOXIDE LEVEL 25 MMOL/L (20-31); CHLORIDE LEVEL 103 MMOL/L (98-107); POTASSIUM SERUM 4.6 MMOL/L (3.5-5.1); SODIUM LEVEL 141 MMOL/L (136-145); THYROID STIMULATING HORMONE 1.652 uIU/ML (0.55-4.78)
[2022-05-01 13:48] LABS: BLOOD UREA NITROGEN 15 MG/DL (9-23); CALCIUM LEVEL 9.1 MG/DL (8.5-10.1); GLUCOSE, FASTING 116 MG/DL (60-100); HDL CHOLESTEROL 29.5 MG/DL (>40); TRIGLYCERIDES LEVEL 338 MG/DL (<150)
[2022-05-01 13:49] LABS: ALKALINE PHOSPHATASE 71 U/L (46-116); BILIRUBIN,TOTAL 0.2 MG/DL (0.3-1.2)
[2022-05-01 13:50] LABS: ALT/SGPT 22 U/L (7.0-40); AST/SGOT 11 U/L (<34); TOTAL PROTEIN 7.1 G/DL (5.7-8.2)
[2022-05-01 13:51] LABS: CHOLESTEROL LEVEL 217 MG/DL (<200); CHOLESTEROL RISK RATIO 7.35 (<5); CREATININE FOR GFR 0.66 MG/DL (0.55-1.30); GLOMERULAR FILTRATION RATE > 60.0 (>60); LDL CHOLESTEROL 119.9 MG/DL (<100); NON-HDL-C 188 MG/DL
== END ==
LOC: M LAB REF 11:19
PROVIDERS: ATTEND Family Medicine Addiction Medicine
DX: E78.5 Hyperlipidemia, unspecified (principal)

== ENCOUNTER → 2022-07-24 | Outpatient (REF) | payer MEDICARE, MEDICAID ==
[~2022-07-24] MED LIST changes: -BENZ-52 PO; +BENZ1TAB5 PO
[2022-07-24 13:28] LABS: HEMOGLOBIN A1c 5.5 % (4.0-6.0)
[2022-07-24 13:41] LABS: ALBUMIN 3.5 G/DL (3.2-5.2); ALKALINE PHOSPHATASE 78 U/L (46-116); ALT/SGPT 19 U/L (7.0-40); AST/SGOT 12 U/L (<34); BILIRUBIN,TOTAL 0.2 MG/DL (0.3-1.2); BLOOD UREA NITROGEN 9 MG/DL (9-23); CALCIUM LEVEL 9.1 MG/DL (8.5-10.1); CARBON DIOXIDE LEVEL 27 MMOL/L (20-31); CHLORIDE LEVEL 105 MMOL/L (98-107); CHOLESTEROL LEVEL 163 MG/DL (<200); CHOLESTEROL RISK RATIO 5.86 (<5); CREATININE FOR GFR 0.63 MG/DL (0.55-1.30); GLOMERULAR FILTRATION RATE > 60.0 (>60); GLUCOSE, FASTING 101 MG/DL (60-100); HDL CHOLESTEROL 27.8 MG/DL (>40); LDL CHOLESTEROL 94.2 MG/DL (<100); NON-HDL-C 135 MG/DL; POTASSIUM SERUM 4.4 MMOL/L (3.5-5.1); SODIUM LEVEL 139 MMOL/L (136-145); THYROID STIMULATING HORMONE 6.571 uIU/ML (0.55-4.78); TOTAL PROTEIN 6.6 G/DL (5.7-8.2); TRIGLYCERIDES LEVEL 205 MG/DL (<150)
== END ==
LOC: M LAB REF 12:01
PROVIDERS: ATTEND Family Medicine Addiction Medicine
DX: R73.03 Prediabetes (principal); E78.5 Hyperlipidemia, unspecified

== ENCOUNTER → 2022-11-13 | Outpatient (REF) | payer MEDICARE ==
[~2022-11-13] MED LIST changes: +TOPI-254 PO; -TOPI50TA9 PO
[2022-11-13 13:25] LABS: HEMOGLOBIN A1c 5.8 % (4.0-6.0)
[2022-11-13 13:41] LABS: ALBUMIN 3.6 G/DL (3.2-5.2); ALKALINE PHOSPHATASE 81 U/L (46-116); ALT/SGPT 17 U/L (7.0-40); AST/SGOT < 8 U/L (<34); BILIRUBIN,TOTAL 0.2 MG/DL (0.3-1.2); BLOOD UREA NITROGEN 6 MG/DL (9-23); CALCIUM LEVEL 8.5 MG/DL (8.5-10.1); CARBON DIOXIDE LEVEL 26 MMOL/L (20-31); CHLORIDE LEVEL 106 MMOL/L (98-107); CHOLESTEROL LEVEL 188 MG/DL (<200); CHOLESTEROL RISK RATIO 7.06 (<5); CREATININE FOR GFR 0.54 MG/DL (0.55-1.30); GLOMERULAR FILTRATION RATE > 60.0 (>60); GLUCOSE, FASTING 118 MG/DL (60-100); HDL CHOLESTEROL 26.6 MG/DL (>40); LDL CHOLESTEROL 111.4 MG/DL (<100); NON-HDL-C 161.4 MG/DL; POTASSIUM SERUM 4.2 MMOL/L (3.5-5.1); SODIUM LEVEL 140 MMOL/L (136-145); TOTAL PROTEIN 6.3 G/DL (5.7-8.2); TRIGLYCERIDES LEVEL 250 MG/DL (<150)
[2022-11-13 13:44] LABS: THYROID STIMULATING HORMONE 1.539 uIU/ML (0.55-4.78)
== END ==
LOC: M LAB REF 12:01
PROVIDERS: ATTEND Family Medicine Addiction Medicine
DX: R73.03 Prediabetes (principal); E78.5 Hyperlipidemia, unspecified

== ENCOUNTER 2023-02-01 16:34 | Emergency (ER) | payer MEDICARE ==
[~2023-02-01] VITALS: Ht 170.2 cm; Wt 97.6 kg
[2023-02-01 16:43] VITALS: BP 160/72; TEMP 99; O2SAT 95
[2023-02-01] MEDS ORDERED: DIVA500T94 (16:56)
[2023-02-01 17:55] LABS: HEMATOCRIT 37.1 % (36.0-47.0); HEMOGLOBIN 11.8 g/dl (12.0-15.5); MEAN CORPUSCULAR HEMOGLOBIN 28.4 pg (27.0-33.0); MEAN CORPUSCULAR HGB CONC 31.8 g/dl (32.0-36.5); MEAN CORPUSCULAR VOLUME 89.2 fl (80.0-96.0); PLATELET COUNT, AUTOMATED 481 10^3/uL (150-450); RED BLOOD COUNT 4.16 10^6/uL (4.00-5.40); WHITE BLOOD COUNT 13.3 10^3/uL (4.0-10.0)
[2023-02-01 18:23] LABS: BLOOD UREA NITROGEN 10 MG/DL (9-23); CARBON DIOXIDE LEVEL 31 MMOL/L (20-31); CHLORIDE LEVEL 105 MMOL/L (98-107); CREATININE FOR GFR 0.72 MG/DL (0.55-1.30); GLOMERULAR FILTRATION RATE > 60.0 (>60); GLUCOSE, FASTING 90 MG/DL (60-100); POTASSIUM SERUM 4.1 MMOL/L (3.5-5.1); SODIUM LEVEL 143 MMOL/L (136-145)
[2023-02-01 18:27] LABS: HCG, SERUM QUALITATIVE NEGATIVE (NEGATIVE)
== END 2023-02-01 19:22 | disposition left against medical advice (07) ==
LOC: M ED 16:34
DX: Z53.21 Procedure and treatment not carried out due to patient leaving prior to being seen by health care provider (principal)

== ENCOUNTER → 2023-04-18 | Outpatient (REF) | payer MEDICARE, MEDICAID ==
[~2023-04-18] MED LIST changes: +DIVA500T94
[2023-04-18 13:35] LABS: ALBUMIN 3.8 G/DL (3.2-5.2); ALKALINE PHOSPHATASE 88 U/L (46-116); ALT/SGPT 23 U/L (7.0-40); AST/SGOT 10 U/L (<34); BILIRUBIN,TOTAL 0.2 MG/DL (0.3-1.2); BLOOD UREA NITROGEN 12 MG/DL (9-23); CALCIUM LEVEL 9.6 MG/DL (8.5-10.1); CARBON DIOXIDE LEVEL 29 MMOL/L (20-31); CHLORIDE LEVEL 99 MMOL/L (98-107); CHOLESTEROL LEVEL 222 MG/DL (<200); CHOLESTEROL RISK RATIO 7.62 (<5); CREATININE FOR GFR 0.69 MG/DL (0.55-1.30); GLOMERULAR FILTRATION RATE > 60.0 (>60); GLUCOSE, FASTING 147 MG/DL (60-100); HDL CHOLESTEROL 29.1 MG/DL (>40); LDL CHOLESTEROL 136.1 MG/DL (<100); NON-HDL-C 192.9 MG/DL; POTASSIUM SERUM 4.5 MMOL/L (3.5-5.1); SODIUM LEVEL 138 MMOL/L (136-145); TOTAL PROTEIN 7.1 G/DL (5.7-8.2); TRIGLYCERIDES LEVEL 284 MG/DL (<150)
[2023-04-18 13:37] LABS: THYROID STIMULATING HORMONE 5.523 uIU/ML (0.55-4.78)
[2023-04-18 14:10] LABS: HEMOGLOBIN A1c 6.3 % (4.0-6.0)
== END ==
LOC: M LAB REF 12:33
PROVIDERS: ATTEND Family Medicine Addiction Medicine
DX: R73.03 Prediabetes (principal); Z79.899 Other long term (current) drug therapy

== ENCOUNTER → 2023-05-29 | Outpatient (REF) | payer MEDICARE, MEDICAID ==
[~2023-05-29] MED LIST changes: +TOPI-21 PO; -TOPI-254 PO
[2023-05-29 16:42] LABS: FREE T4 1.13 NG/DL (0.89-1.76); THYROID STIMULATING HORMONE 2.804 uIU/ML (0.55-4.78)
== END ==
LOC: M LAB REF 15:56
PROVIDERS: ATTEND Family Medicine Addiction Medicine
DX: R89.1 Abnormal level of hormones in specimens from other organs, systems and tissues (principal); Z79.899 Other long term (current) drug therapy

== ENCOUNTER 2023-07-10 20:59 | Emergency (ER) | payer MEDICARE, MEDICAID ==
[~2023-07-10] VITALS: Ht 170.2 cm; Wt 102.0 kg
[2023-07-11 07:14] LABS: BASO # 0.1 10^3/uL (0.0-0.2); BASO % 0.4 % (0.0-1.0); EOS # 0.1 10^3/uL (0.0-0.5); EOS % 1.2 % (0.0-3.0); HEMATOCRIT 32.2 % (36.0-47.0); HEMOGLOBIN 9.9 g/dl (12.0-15.5); LYMPH # 3.7 10^3/uL (1.5-5.0); LYMPH % 30.8 % (24.0-44.0); MEAN CORPUSCULAR HEMOGLOBIN 24.5 pg (27.0-33.0); MEAN CORPUSCULAR HGB CONC 30.7 g/dl (32.0-36.5); MEAN CORPUSCULAR VOLUME 79.7 fl (80.0-96.0); MONO # 0.9 10^3/uL (0.0-0.8); NEUTROPHILS # 7.3 10^3/uL (1.5-8.5); NEUTROPHILS % 60.3 % (36.0-66.0); PLATELET COUNT, AUTOMATED 512 10^3/uL (150-450); RED BLOOD COUNT 4.04 10^6/uL (4.00-5.40); WHITE BLOOD COUNT 12.1 10^3/uL (4.0-10.0)
[2023-07-11 07:37] LABS: BLOOD UREA NITROGEN 13 MG/DL (9-23); CALCIUM LEVEL 8.7 MG/DL (8.5-10.1); CARBON DIOXIDE LEVEL 27 MMOL/L (20-31); CHLORIDE LEVEL 100 MMOL/L (98-107); CREATININE FOR GFR 0.45 MG/DL (0.55-1.30); GLOMERULAR FILTRATION RATE > 60.0 (>60); GLUCOSE, FASTING 323 MG/DL (60-100); HCG, SERUM QUANTITATIVE < 2.6 MIU/ML (<4.2); MAGNESIUM LEVEL 1.7 MG/DL (1.8-2.4); POTASSIUM SERUM 4.1 MMOL/L (3.5-5.1); SODIUM LEVEL 134 MMOL/L (136-145)
[2023-07-11 07:41] LABS: FREE T4 1.28 NG/DL (0.89-1.76); THYROID STIMULATING HORMONE 3.581 uIU/ML (0.55-4.78)
[2023-07-11] MEDS ORDERED: METF500T13 PO (08:42)
[2023-07-11 09:01] VITALS: BP 124/61; TEMP 96.7; O2SAT 94
[2023-07-11 10:04] LABS: HEMOGLOBIN A1c 9.5 % (4.0-6.0)
== END 2023-07-11 09:06 | disposition home or self-care (01) ==
LOC: M ED 20:59
DX: E11.65 Type 2 diabetes mellitus with hyperglycemia (principal); R05.9 Cough, unspecified; D64.9 Anemia, unspecified; I45.10 Unspecified right bundle-branch block; F17.200 Nicotine dependence, unspecified, uncomplicated; Z79.4 Long term (current) use of insulin; Z79.83 Long term (current) use of bisphosphonates; Z79.899 Other long term (current) drug therapy

== ENCOUNTER 2023-07-28 09:31 | Emergency (ER) | payer MEDICARE, MEDICAID ==
[~2023-07-28] VITALS: Ht 170.2 cm; Wt 97.7 kg
[~2023-07-28 09:31] MED LIST changes: +METF500T13 PO
[2023-07-28 09:32] VITALS: TEMP 97.8
[2023-07-28] MEDS: NS 1,000 ML IV ONE ×2 (10:26→12:45)
[2023-07-28 10:34] LABS: VENOUS BASE EXCESS -1.3 (-2.0-2.0); VENOUS HCO3 23.3 MMOL/L (23.0-27.0); VENOUS O2 SATURATION 91.3 % (60.0-80.0); VENOUS PARTIAL PRESSURE CO2 38.8 mmHg (38.0-50.0); VENOUS PARTIAL PRESSURE O2 58.9 mmHg (30.0-50.0); VENOUS PH 7.396 UNITS (7.330-7.430); VENOUS STANDARD HCO3 23.2 MMOL/L; VENOUS TOTAL CO2 24.5 MMOL/L (24.0-28.0)
[2023-07-28 10:42] LABS: BASO % 0.3 % (0.0-1.0); EOS # 0.1 10^3/uL (0.0-0.5); EOS % 0.8 % (0.0-3.0); HEMATOCRIT 35.1 % (36.0-47.0); HEMOGLOBIN 10.7 g/dl (12.0-15.5); LYMPH # 3.3 10^3/uL (1.5-5.0); LYMPH % 30.5 % (24.0-44.0); MEAN CORPUSCULAR HEMOGLOBIN 23.6 pg (27.0-33.0); MEAN CORPUSCULAR HGB CONC 30.5 g/dl (32.0-36.5); MEAN CORPUSCULAR VOLUME 77.3 fl (80.0-96.0); MONO # 0.7 10^3/uL (0.0-0.8); MONO % 6.6 % (2.0-8.0); NEUTROPHILS # 6.6 10^3/uL (1.5-8.5); NEUTROPHILS % 61.5 % (36.0-66.0); PLATELET COUNT, AUTOMATED 531 10^3/uL (150-450); RED BLOOD COUNT 4.54 10^6/uL (4.00-5.40); WHITE BLOOD COUNT 10.7 10^3/uL (4.0-10.0)
[2023-07-28 11:02] LABS: ETHYL ALCOHOL (ETHANOL) < 0.003 % (0.000-0.010); LIPASE 58 U/L (12-53)
[2023-07-28 11:04] LABS: HCG, SERUM QUALITATIVE NEGATIVE (NEGATIVE)
[2023-07-28 11:05] LABS: ACETONE/KETONE 1.02 MMOL/L (0.02-0.27)
[2023-07-28 11:07] LABS: ALBUMIN 3.6 G/DL (3.2-5.2); ALKALINE PHOSPHATASE 109 U/L (46-116); ALT/SGPT 17 U/L (7.0-40); AST/SGOT < 8 U/L (<34); BILIRUBIN,DIRECT < 0.1 MG/DL (<0.4); BILIRUBIN,TOTAL 0.2 MG/DL (0.3-1.2); BLOOD UREA NITROGEN 15 MG/DL (9-23); CALCIUM LEVEL 9.2 MG/DL (8.5-10.1); CARBON DIOXIDE LEVEL 26 MMOL/L (20-31); CHLORIDE LEVEL 98 MMOL/L (98-107); CREATININE FOR GFR 0.57 MG/DL (0.55-1.30); GLOMERULAR FILTRATION RATE > 60.0 (>60); GLUCOSE, FASTING 468 MG/DL (60-100); MAGNESIUM LEVEL 1.8 MG/DL (1.8-2.4); POTASSIUM SERUM 4.8 MMOL/L (3.5-5.1); SODIUM LEVEL 131 MMOL/L (136-145); TOTAL PROTEIN 6.8 G/DL (5.7-8.2)
[2023-07-28 11:28] LABS: HEMOGLOBIN A1c 12.5 % (4.0-6.0)
[2023-07-28 12:08] LABS: AMPHETAMINES LEVEL URINE NEGATIVE (NEGATIVE); BARBITURATES URINE NEGATIVE (NEGATIVE); BENZODIAZEPINES URINE NEGATIVE (NEGATIVE); CANNABINOIDS URINE NEGATIVE (NEGATIVE); COCAINE METABOLITE URINE NEGATIVE (NEGATIVE); METHADONE URINE NEGATIVE (NEGATIVE); OPIATES URINE NEGATIVE (NEGATIVE); PHENCYCLIDINE URINE NEGATIVE (NEGATIVE)
[2023-07-28 14:00] VITALS: BP 117/64
[2023-07-28 14:16] VITALS: O2SAT 97
[2023-07-28] MEDS ORDERED: METF-877 PO (14:48)
== END 2023-07-28 15:04 | disposition home or self-care (01) ==
LOC: M ED 09:31
DX: E11.65 Type 2 diabetes mellitus with hyperglycemia (principal); R00.0 Tachycardia, unspecified; D64.9 Anemia, unspecified; Z79.4 Long term (current) use of insulin; Z79.83 Long term (current) use of bisphosphonates; Z79.899 Other long term (current) drug therapy

== ENCOUNTER → 2023-08-13 | Outpatient (REF) | payer MEDICARE, MEDICAID ==
[~2023-08-13] MED LIST changes: +METF-877 PO; +RISP-106 PO; -RISP-9 PO
[2023-08-13 13:24] LABS: ALBUMIN 3.6 G/DL (3.2-5.2); ALKALINE PHOSPHATASE 78 U/L (46-116); ALT/SGPT 15 U/L (7.0-40); AST/SGOT < 8 U/L (<34); BILIRUBIN,TOTAL 0.2 MG/DL (0.3-1.2); BLOOD UREA NITROGEN 11 MG/DL (9-23); CARBON DIOXIDE LEVEL 26 MMOL/L (20-31); CHLORIDE LEVEL 102 MMOL/L (98-107); CHOLESTEROL LEVEL 170 MG/DL (<200); CHOLESTEROL RISK RATIO 6.18 (<5); CREATININE FOR GFR 0.48 MG/DL (0.55-1.30); GLOMERULAR FILTRATION RATE > 60.0 (>60); GLUCOSE, FASTING 194 MG/DL (60-100); HDL CHOLESTEROL 27.5 MG/DL (>40); LDL CHOLESTEROL 63.5 MG/DL (<100); NON-HDL-C 142.5 MG/DL; POTASSIUM SERUM 4.1 MMOL/L (3.5-5.1); SODIUM LEVEL 137 MMOL/L (136-145); TOTAL PROTEIN 6.6 G/DL (5.7-8.2); TRIGLYCERIDES LEVEL 395 MG/DL (<150)
[2023-08-13 13:25] LABS: THYROID STIMULATING HORMONE 4.689 uIU/ML (0.55-4.78)
[2023-08-13 13:33] LABS: CREATININE, URINE 61.5 MG/DL; MALB URINE SIEMENS < 3.0 MG/L; MAU/CREAT RATIO 4.8 MCG/MG (0.0-30.0)
== END ==
LOC: M LAB REF 10:38
PROVIDERS: ATTEND Family Medicine Addiction Medicine
DX: E11.9 Type 2 diabetes mellitus without complications (principal)

== ENCOUNTER → 2023-12-26 | Outpatient (REF) | payer MEDICARE, MEDICAID ==
[~2023-12-26] MED LIST changes: -OLAN20TA14 PO; +OLAN20TA53 PO
[2023-12-26 14:00] LABS: ALBUMIN 3.9 G/DL (3.2-5.2); ALKALINE PHOSPHATASE 83 U/L (46-116); ALT/SGPT 22 U/L (7.0-40); AST/SGOT < 8 U/L (<34); BILIRUBIN,TOTAL 0.2 MG/DL (0.3-1.2); BLOOD UREA NITROGEN 9 MG/DL (9-23); CALCIUM LEVEL 9.6 MG/DL (8.5-10.1); CARBON DIOXIDE LEVEL 30 MMOL/L (20-31); CHLORIDE LEVEL 105 MMOL/L (98-107); CHOLESTEROL LEVEL 123 MG/DL (<200); CHOLESTEROL RISK RATIO 5.04 (<5); CREATININE FOR GFR 0.56 MG/DL (0.55-1.30); GLOMERULAR FILTRATION RATE > 60.0 (>60); GLUCOSE, FASTING 109 MG/DL (60-100); HDL CHOLESTEROL 24.4 MG/DL (>40); LDL CHOLESTEROL 60.6 MG/DL (<100); NON-HDL-C 98.6 MG/DL; SODIUM LEVEL 140 MMOL/L (136-145); TOTAL PROTEIN 6.9 G/DL (5.7-8.2); TRIGLYCERIDES LEVEL 190 MG/DL (<150)
[2023-12-26 14:02] LABS: THYROID STIMULATING HORMONE 2.341 uIU/ML (0.55-4.78)
[2023-12-26 14:24] LABS: HEMOGLOBIN A1c 5.8 % (4.0-6.0)
== END ==
LOC: M LAB REF 13:09
PROVIDERS: ATTEND Family Medicine Addiction Medicine
DX: E11.9 Type 2 diabetes mellitus without complications (principal)

== ENCOUNTER → 2024-04-28 | Outpatient (REF) | payer MEDICARE, MEDICAID ==
[2024-04-28 18:50] LABS: CREATININE, URINE 81.9 MG/DL
[2024-04-28 18:51] LABS: MAU/CREAT RATIO 23.1 MCG/MG (0.0-30.0)
[2024-04-28 19:56] LABS: HEMOGLOBIN A1c 6.2 % (4.0-6.0)
[2024-04-28 20:10] LABS: ALKALINE PHOSPHATASE 84 U/L (35-104); ALT/SGPT 29 U/L (7.0-40); AST/SGOT 8 U/L (<34); BILIRUBIN,TOTAL 0.2 MG/DL (0.3-1.2); BLOOD UREA NITROGEN 9 MG/DL (9-23); CALCIUM LEVEL 9.9 MG/DL (8.5-10.1); CARBON DIOXIDE LEVEL 22 MMOL/L (20-31); CHLORIDE LEVEL 108 MMOL/L (98-107); CHOLESTEROL LEVEL 110 MG/DL (<200); CHOLESTEROL RISK RATIO 3.97 (<5); CREATININE FOR GFR 0.56 MG/DL (0.55-1.30); GLOMERULAR FILTRATION RATE > 60.0 (>60); GLUCOSE, FASTING 117 MG/DL (60-100); HDL CHOLESTEROL 27.7 MG/DL (>40); LDL CHOLESTEROL 46.3 MG/DL (<100); NON-HDL-C 82.3 MG/DL; SODIUM LEVEL 141 MMOL/L (136-145); TOTAL PROTEIN 7.2 G/DL (5.7-8.2); TRIGLYCERIDES LEVEL 180 MG/DL (<150)
[2024-04-28 20:11] LABS: THYROID STIMULATING HORMONE 2.849 uIU/ML (0.55-4.78)
== END ==
LOC: M LAB REF 16:21
PROVIDERS: ATTEND Family Medicine Addiction Medicine
DX: E11.9 Type 2 diabetes mellitus without complications (principal)

== ENCOUNTER 2024-06-29 18:01 | Inpatient (IN) | payer MEDICARE, MEDICAID ==
[~2024-06-29] VITALS: Ht 170.2 cm; Wt 97.7 kg
[2024-06-29] MEDS ORDERED: LANTINJ4 SQ (18:33)
[2024-06-29] MEDS ORDERED: ROSU10TA61 PO (18:33)
[2024-06-29] MEDS ORDERED: OLAN1TAB16 PO (18:33)
[2024-06-29] MEDS ORDERED: ALBU8.5H INH (18:34)
[2024-06-29 18:46] LABS: HEMATOCRIT 37.8 % (36.0-47.0); HEMOGLOBIN 12.1 g/dl (12.0-15.5); MEAN CORPUSCULAR VOLUME 84.4 fl (80.0-96.0); PLATELET COUNT, AUTOMATED 517 10^3/uL (150-450); RED BLOOD COUNT 4.48 10^6/uL (4.00-5.40); WHITE BLOOD COUNT 14.7 10^3/uL (4.0-10.0)
[2024-06-29 19:05] LABS: AMPHETAMINES LEVEL URINE NEGATIVE (NEGATIVE); BARBITURATES URINE NEGATIVE (NEGATIVE); BENZODIAZEPINES URINE NEGATIVE (NEGATIVE)
[2024-06-29 19:06] LABS: CANNABINOIDS URINE NEGATIVE (NEGATIVE); COCAINE METABOLITE URINE NEGATIVE (NEGATIVE); METHADONE URINE NEGATIVE (NEGATIVE); OPIATES URINE NEGATIVE (NEGATIVE); PHENCYCLIDINE URINE NEGATIVE (NEGATIVE)
[2024-06-29 19:07] LABS: ETHYL ALCOHOL (ETHANOL) < 0.003 % (0.000-0.010)
[2024-06-29 19:08] LABS: SALICYLATE LEVEL < 3.0 MG/DL (<30)
[2024-06-29 19:09] LABS: ALBUMIN 3.8 G/DL (3.2-5.2); ALKALINE PHOSPHATASE 82 U/L (35-104); ALT/SGPT 21 U/L (7.0-40); AST/SGOT 13 U/L (<34); BILIRUBIN,DIRECT < 0.1 MG/DL (<0.4); BILIRUBIN,TOTAL < 0.2 MG/DL (0.3-1.2); BLOOD UREA NITROGEN 15 MG/DL (9-23); CALCIUM LEVEL 9.3 MG/DL (8.5-10.1); CARBON DIOXIDE LEVEL 32 MMOL/L (20-31); CHLORIDE LEVEL 99 MMOL/L (98-107); CREATININE FOR GFR 0.98 MG/DL (0.55-1.30); GLOMERULAR FILTRATION RATE > 60.0 (>60); GLUCOSE, FASTING 113 MG/DL (60-100); SODIUM LEVEL 142 MMOL/L (136-145)
[2024-06-29 19:11] LABS: THYROID STIMULATING HORMONE 2.728 uIU/ML (0.55-4.78)
[2024-06-29 20:30] LABS: APPEARANCE, URINE CLEAR (CLEAR); BACTERIA, URINE AUTO NEGATIVE (NEGATIVE); BILIRUBIN, URINE AUTO NEGATIVE (NEGATIVE); BLOOD, URINE BLOOD NEGATIVE (NEGATIVE); COLOR, URINE YELLOW (YELLOW); GLUCOSE, URINE (UA) AUTO NEGATIVE (NEGATIVE); KETONE, URINE AUTO NEGATIVE (NEGATIVE); LEUKOCYTE ESTERASE, URINE AUTO NEGATIVE (NEGATIVE); NITRITE, URINE AUTO NEGATIVE (NEGATIVE); PROTEIN, URINE AUTO NEGATIVE (NEGATIVE); RBC, URINE AUTO 0 /HPF (0-3); SPECIFIC GRAVITY URINE AUTO 1.006 (1.002-1.035); SQUAMOUS EPITHELIAL CELL UR AU 3 /HPF (0-6); UROBILINOGEN, URINE AUTO 0.2 mg/dL (0.0-2.0); WBC, URINE AUTO 0 /HPF (0-3)
[2024-06-29] MEDS ORDERED: MAALOX 30 ML SUSP *UDC PO PRN (20:40)
[2024-06-29] MEDS ORDERED: IBUPROFEN 400MG TAB PO PRN (20:40)
[2024-06-29] MEDS ORDERED: METF-877 PO (21:57)
[2024-06-29] MEDS: OLANZapine ORAL DISINTEGRATING TAB 5MG PO PRN (22:39)
[2024-06-29] MEDS: traZODone 50 MG TAB PO PRN (22:40)
[2024-06-29] MEDS: diphenhydrAMINE 25MG CAP PO PRN (22:40)
[2024-06-29 22:44] VITALS: BP 143/65; TEMP 97.6; O2SAT 98
[2024-06-30 06:24] VITALS: BP 141/72; TEMP 97.1; O2SAT 95
[2024-06-30] MEDS ORDERED: DIVA500T94 PO (06:24)
[2024-06-30] MEDS ORDERED: HOME MED LIST COMPLETE! XX SCH (06:25)
[2024-06-30] MEDS: ACETAMINOPHEN 325 MG TAB PO PRN (08:07)
[2024-06-30] MEDS: NICOTINE 21MG/24HR 1 EA TRANSDERMAL TD PRN (08:07)
[2024-06-30] MEDS ORDERED: NICOTINE 14 MG/24 HR TRANSDERMAL TD SCH (09:00)
[2024-06-30] MEDS: SERTRALINE HCL 50 MG TAB PO SCH (09:40)
[2024-06-30] MEDS: ALBUTEROL 90 MCG/ACT 8GM HFA INHALER INH PRN (09:40)
[2024-06-30] MEDS: ROSUVASTATIN 10 MG TAB (CRESTOR) PO SCH (09:40)
[2024-06-30] MEDS: DIVALPROEX 500 MG TAB PO SCH (09:40)
[2024-06-30] MEDS: metFORMIN (GLUCOPHAGE) 1000MG TABLET PO SCH (09:40)
[2024-06-30] MEDS ORDERED: GLUCAGON INJ 1MG VIAL SC PRN (11:20)
[2024-06-30] MEDS ORDERED: GLUCOSE 4 GM CHEW PO PRN (11:20)
[2024-06-30] MEDS ORDERED: DEXTROSE 50% 50ML SYRINGE IV PRN (11:20)
[2024-06-30] MEDS: LEVEMIR (INSULIN DETEMIR) 1 UNITS/0.01ML SQ SCH (12:31)
[2024-06-30 16:08] VITALS: BP 135/71; TEMP 98.1; O2SAT 96
[2024-06-30] MEDS: PALIPERIDONE 6MG ER TAB (INVEGA) PO SCH (20:25)
[2024-06-30] MEDS: OLANZapine 5 MG TAB PO SCH (20:25)
[2024-07-01] MEDS: MOM 30ML SUSPENSION UDC PO PRN (00:13)
[2024-07-01 06:34] VITALS: BP 135/67; TEMP 97.5; O2SAT 93
[2024-07-01 15:19] VITALS: BP 149/88; TEMP 97.5; O2SAT 95
[2024-07-02 06:42] VITALS: BP 124/69; TEMP 97.1; O2SAT 94
== END 2024-07-02 15:12 | disposition home or self-care (01) | DRG 885 ==
LOC: M ED 18:01 → EDBD 18:01 → M PSY 21:39 → M ED 21:39 → M PSY 21:40 → M ED 21:49 → M PSY 21:49
PROVIDERS: ADMIT Psychiatry & Neurology Neurology; ATTEND Psychiatry & Neurology Psychiatry
DX: F20.9 Schizophrenia, unspecified (principal); R45.851 Suicidal ideations; F17.200 Nicotine dependence, unspecified, uncomplicated; R45.850 Homicidal ideations; I10 Essential (primary) hypertension; J44.9 Chronic obstructive pulmonary disease, unspecified; E11.9 Type 2 diabetes mellitus without complications; E78.5 Hyperlipidemia, unspecified; F41.9 Anxiety disorder, unspecified; F32.A Depression, unspecified; M25.572 Pain in left ankle and joints of left foot; Z79.4 Long term (current) use of insulin; Z79.84 Long term (current) use of oral hypoglycemic drugs; Z79.899 Other long term (current) drug therapy

== ENCOUNTER → 2024-10-02 | Outpatient (REF) | payer MEDICARE, MEDICAID ==
[~2024-10-02] MED LIST changes: +ALBU8.5H INH; -AMBI10TA PO; -AMBI5TAB PO; +DIVA500T94 PO; +LANTINJ4 SQ; +OLAN1TAB16 PO; +ROSU10TA61 PO; +ZOLP-532 PO; +ZOLP-533 PO
[2024-10-02 13:13] LABS: ALBUMIN 3.8 G/DL (3.2-5.2); ALKALINE PHOSPHATASE 72 U/L (35-104); ALT/SGPT 19 U/L (7.0-40); AST/SGOT < 8 U/L (<34); BILIRUBIN,TOTAL 0.2 MG/DL (0.3-1.2); BLOOD UREA NITROGEN 7 MG/DL (9-23); CARBON DIOXIDE LEVEL 29 MMOL/L (20-31); CHLORIDE LEVEL 103 MMOL/L (98-107); CHOLESTEROL LEVEL 92 MG/DL (<200); CHOLESTEROL RISK RATIO 3.94 (<5); CREATININE FOR GFR 0.56 MG/DL (0.55-1.30); GLOMERULAR FILTRATION RATE > 90.0 (>60); GLUCOSE, FASTING 88 MG/DL (60-100); HDL CHOLESTEROL 23.3 MG/DL (>40); LDL CHOLESTEROL 34.9 MG/DL (<100); NON-HDL-C 68.7 MG/DL; POTASSIUM SERUM 4.4 MMOL/L (3.5-5.1); SODIUM LEVEL 141 MMOL/L (136-145); TOTAL PROTEIN 6.8 G/DL (5.7-8.2); TRIGLYCERIDES LEVEL 169 MG/DL (<150)
[2024-10-02 13:15] LABS: THYROID STIMULATING HORMONE 2.133 uIU/ML (0.55-4.78)
[2024-10-02 13:53] LABS: HEMOGLOBIN A1c 5.8 % (4.0-6.0)
== END ==
LOC: M LAB REF 12:33
PROVIDERS: ATTEND Family Medicine Addiction Medicine
DX: E11.9 Type 2 diabetes mellitus without complications (principal)

== ENCOUNTER → 2025-02-05 | Outpatient (CLI) | payer MEDICARE, MEDICAID ==
[~2025-02-05] MED LIST changes: +DIVA-41; +DIVA-41 PO; -DIVA500T94; -DIVA500T94 PO
== END ==
LOC: M WUC 11:36
PROVIDERS: ATTEND Registered Nurse
DX: F31.61 Bipolar disorder, current episode mixed, mild (principal)

== ENCOUNTER → 2025-04-06 | Outpatient (CLI) | payer MEDICARE, MEDICAID ==
[~2025-04-06] MED LIST changes: -ROSU10TA61 PO; +ROSU10TA90 PO; +ZOLP10TA11 PO; -ZOLP10TA2 PO
[2025-04-06 14:11] LABS: ESTIMATED AVERAGE GLUCOSE 197.0 MG/DL (60-110)
[2025-04-06 14:28] LABS: ALT/SGPT 31 U/L (7.0-40); AST/SGOT 15 U/L (<34); CALCIUM LEVEL 9.6 MG/DL (8.5-10.1); CARBON DIOXIDE LEVEL 27 MMOL/L (20-31); CHLORIDE LEVEL 99 MMOL/L (98-107); CHOLESTEROL LEVEL 111 MG/DL (<200); CHOLESTEROL RISK RATIO 3.43 (<5); CREATININE FOR GFR 0.55 MG/DL (0.55-1.30); GLOMERULAR FILTRATION RATE > 90.0 (>60); LDL CHOLESTEROL 32.7 MG/DL (<100); NON-HDL-C 78.7 MG/DL; POTASSIUM SERUM 4.1 MMOL/L (3.5-5.1); SODIUM LEVEL 137 MMOL/L (136-145); TRIGLYCERIDES LEVEL 230 MG/DL (<150)
== END ==
LOC: M WUC 08:33
PROVIDERS: ATTEND Family Medicine Addiction Medicine
DX: E11.9 Type 2 diabetes mellitus without complications (principal)